=== PATIENT | male | born 2000 | race Caucasian/White ===

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

== ENCOUNTER → 2022-12-08 | Outpatient (CLI) | payer OTHER, SELFPAY ==
[2022-12-08 12:28] LABS: Erythrocyte Sedimentation Rate 1 mm/hr (0-20)
[2022-12-08 12:34] LABS: Absolute Lymphocyte Count 1.59 X10^3/uL (0.83-4.51); Basophil# 0.04 X10^3/uL; Basophil% 0.6 % (0-1); Eosinophil# 0.51 X10^3/uL; Eosinophils% 7.6 % (0-5); Hematocrit 50.5 % (40-54); Hemoglobin 17.2 g/dL (13.0-16.5); Lymphocyte # 1.59 X10^3/ul (0.83-4.51); Lymphocyte % 23.7 % (19-41); Mean Corp Hgb Conc 34.1 g/dL (32-36); Mean Corpuscular Hgb 30.6 pg (27.0-32.0); Mean Corpuscular Volume 89.9 fL (80-94); Mean Platelet Vol. 10.5 fl (6.2-12.0); Monocyte# 0.53 X10^3/uL; Monocyte% 7.9 % (0-10); NRBC Flagged by Analyzer 0 % (0-5); Neutrophil # 4.04 X10^3/uL (2.7-7.7); Neutrophil % 60.1 % (47-70); Platelet Count 228 K/mm3 (150-450); RBC Distribution Width SD 39.8 fl (35.1-43.9); Red Blood Count 5.62 M/mm3 (4.6-6.2); White Blood Count 6.7 K/mm3 (4.4-11.0)
[2022-12-08 13:07] LABS: AST(SGOT) 16 U/L (15-37); Alanine Aminotransfer ALT/SGPT 30 U/L (16-61); Albumin, Serum 3.9 g/dL (3.2-5.0); Alkaline Phosphatase 149 U/L (45-117); Anion Gap 4 (5-15); BUN 8 mg/dL (7-18); CRP < 2.90 mg/L (0.0-3.0); Calcium,Total 9.3 mg/dL (8.5-10.1); Chloride 107 mmol/L (98-107); EST Glomerular Filtration Rate 99 mL/min (>60); Est Glom Filt Rate - Afr Amer 120 mL/min (>60); Globulin 3.8 g/dL (2.2-4.2); Glucose 87 mg/dL (74-106); LDH 188 U/L (87-241); Protein, Total 7.7 g/dL (6.4-8.2); Sodium Level 140 mmol/L (136-145)
[2022-12-09 15:08] LABS: Endomysial Antibody IgA Negative (Negative); Immunoglobulin A 364 mg/dL (90-386); t-Transglutaminase IgA <2 U/mL (0-3)
[2022-12-11 19:07] LABS: Albumin 4.1 g/dL (2.9-4.4); Alpha-1-Globulins 0.2 g/dL (0.0-0.4); Alpha-2-Globulins 0.6 g/dL (0.4-1.0); Anti-Centromere B Ab <0.2 AI (0.0-0.9); Anti-Chromatin <0.2 AI (0.0-0.9); Anti-Jo <0.2 AI (0.0-0.9); Anti-Scleroderma-70 AB <0.2 AI (0.0-0.9); Anti-dsDNA Ab <1 IU/mL (0-9); Beef 0.12 kU/L (Class 0/I); Chocolate <0.10 kU/L (Class 0); Clam 0.11 kU/L (Class 0/I); Codfish <0.10 kU/L (Class 0); Corn 0.82 kU/L (Class II); Cytoplasmic Ab (C-ANCA) <1:20 titer (Neg:<1:20); Egg, White 0.23 kU/L (Class 0/I); Egg, Whole 0.31 kU/L (Class 0/I); Immunoglobulin A 381 mg/dL (90-386); Immunoglobulin E 546 IU/mL (6-495); Immunoglobulin G 1119 mg/dL (603-1613); Immunoglobulin M 50 mg/dL (20-172); Milk (Cow) 0.42 kU/L (Class I); PROEL- TOTAL PROTEIN 7.3 g/dL (6.0-8.5); Peanut 0.91 kU/L (Class II); Perinuclear Ab (P-ANCA) <1:20 titer (Neg:<1:20); Pork 0.21 kU/L (Class 0/I); RNP Ab 0.4 AI (0.0-0.9); SCALLOP 0.22 kU/L (Class 0/I); SJOGREN'S Anti-SS-A test < 0.2 AI (0.0-0.9); SJOGREN'S Anti-SS-B test < 0.2 AI (0.0-0.9); Shrimp 0.91 kU/L (Class II); Smith Ab <0.2 AI (0.0-0.9); Soybean 0.21 kU/L (Class 0/I); Walnut, (Food) 1.57 kU/L (Class III); Wheat 0.54 kU/L (Class I)
== END | disposition home or self-care (01) ==
LOC: LAB 11:22
PROVIDERS: PCP Family Medicine; Referring Provider Internal Medicine Gastroenterology; Visit Provider Internal Medicine Gastroenterology
DX: K20.0 Eosinophilic esophagitis (principal)
CPT/HCPCS: 36415; 80053; 82784; 82785; 83516; 83615; 84165; 85025; 85652; 86003; 86005; 86140; 86225; 86235; 86255; 86256; 86334

== ENCOUNTER 2023-03-25 05:40 | Day surgery (SDC) | payer OTHER, SELFPAY ==
[2023-03-25] VITALS (7 sets, daily range): BP systolic 114–135; BP diastolic 65–78; PULSE 54–76; RESP 18; TEMP 36.1–36.4; O2SAT 95–100; BMI 26.2
[2023-03-25] MEDS: Lactated Ringers 1,000 ML 15 ML IV (05:45)
--- NOTE | 2023-03-25 06:30 | EGD_PTH ---
PATIENT: LESLIE WELLS LOC: EN U#:[id number] AGE/SX: 22/M ROOM: RE03/25/[address]: Dr. Len Zaragoza DO : 2000 BED: DIS: 03/25/2023 SPEC #: [id number] RECD: 03/25/23 09:29 STATUS: CHICHI MAEGAN #: [id number] BETTY: 03/25/23 06:[address]: Len Zaragoza DEPT: SURGICAL PATHOLOGY RECD BY: Javed Gutierrez ENTERED: 03/25/23 12:22 SP TYPE: EGD BIOPSY ARYA DR: Dr. Ovi Lopez MD Tissues: A - Esophagus, NOS B - Duodenum, NOS Procedures: Surgery Specimen Level IV HEADER OPERATION: EGD ([facility]), biopsy, dilation PRE-OP DIAGNOSIS: Eosinophilic esophagitis TISSUE SUBMITTED: A - Random esophagus biopsy, B - Duodenum biopsy MICROSCOPIC DIAGNOSIS A. Esophagus, random biopsy: Eosinophilic esophagitis. See comment. B. Duodenum, biopsy: Focal gastric metaplasia. Mild chronic inflammation. AM:florencio 03/26/2023 COMMENT A. Eosinophils number greater than 20 per high power field. Clinical correlation is suggested. MICROSCOPIC DESCRIPTION Slides are reviewed. GROSS DESCRIPTION A - Received in fixative is one container labeled with the patient's name and designated random esophagus. The specimen consists of multiple irregular fragments of light barajas soft tissue that in aggregate measure 1.0 x 0.3 x 0.1 cm. The specimen is totally submitted in one cassette. B - Received in fixative is one container labeled with the patient's name and designated duodenum biopsy. The specimen consists of two irregular fragments of light barajas soft tissue that in aggregate measure 1.0 x 0.5 x 0.1 cm. The specimen is totally submitted in one cassette. / AM:florencio 03/25/2023 TC:3 CPT: 81218 x2
--- NOTE | 2023-03-25 06:33 | HP.PCM_ITS ---
History and Physical Date of Admission: 03/25/23 LESLIE WELLS, is a 22 M who presents to the office today for [facility] consulted 2017 for dysphagia persistent for one year. Noting concurrent diagnoses of eczema and asthma. ? EGD 02.25.17 noting Schatzki ring with increased eosinophils coun t. ? Start prednisolone taper then Pulmicort with Splenda slurry ? Upper GI 03.15.17 narrowing of esophagus. No reflux ? Continue/Start slurry and start PPI ? EGD 04.29.17 two strictures 15cm and 25cm from incisors. Pathology indicative of EOE. ? Esophagram 04.29.17 without acute/chronic finding. ? Leslie has had multiple EGDs with pathology and esophagrams showing esophageal strictures and ongoing EOE. Therapy has remained the same through treatment. ? EGD 08.03.19 mild esophageal narrowing at 15 [id number] with dilation performed; erythematous duodenal bulb. *BGI established 6.6.23 he is not currently maintained on medication; has attempted budesonide inhaler and slurry and anti-acid medication historically and does not recall good results but did not take them consistently. Currently he is having dysphagia with medication; but no acute episodes of choking. Notes a slowing of bolus passage with dryer/thicker foods. Most recent dilation approximately 2 years prior. Does report asthma which is activity induced; does not recall pulmonology workup. ROS Const Constitutional: No anorexia, fatigue, fever(s), weight change or sleep problems Eyes Eyes: No change in vision ENT ENT: No abnormal hearing, difficulty swallowing, mouth lesions, tongue swelling or throat swelling Resp Respiratory: No cough or shortness of breath Cardio Cardiology: No chest pain at rest, chest pain with exertion, shortness of breath or dyspnea on exertion Gastro GI: No difficulty swallowing Genitourinary Male: No difficulty urinating or burning urination Musc Musculoskeletal: No joint pain, joint swelling, muscle weakness or decreased muscle mass Skin Skin: No hair loss in leg, yellowing of the eye, itchy eyes, rash, skin ulcer or skin swelling Neuro Neurology: No abnormal hearing, abnormal movements, confusion, unsteady gait/balance or memory loss Psych Psychiatric: No anxiety, No confusion and No memory loss Endo Endocrine: No fatigue or weight change Aller/Imm Allergy/Immunologic: No itchy eyes, throat swelling or tongue swelling Andrew/Lymp Hematologic/Lymphatic: No easy bleeding, easy bruising or enlarged lymph nodes Exam Const General: cooperative and comfortable Nutritional Appearance: average body habitus and well nourished [facility] Head: normal to inspection Ears: hearing grossly normal bilaterally Nose: external nose normal Face and sinus: normal facial exam Mouth: oral mucosae normal Throat: posterior oropharynx normal Eyes General: appearance normal, both eyes and all related structures Neck Neck: normal visual inspection Chest Chest palpation & inspection: normal inspection of the chest and normal palpation of entire chest wall Resp Effort & Inspection: normal respiratory effort Auscultation: Bilateral: Clear to Auscultation Cardio Palpation: normal PMI Rate: regular rate Rhythm: regular rhythm GI Inspection: normal to inspection Auscultation: normal bowel sounds Percussion: normal to percussion Palpation: no hepatosplenomegaly Skin General: no rashes or lesions noted Neuro General: patient alert Extrem General: normal to inspection Psych Affect: normal affect Quality Reporting Tobacco Screening ([facility] 138) Smoking Status: Never smoker Assessment and Plan Assessment and Plan (1) Eosinophilic esophagitis: Status: Chronic Plan: Eosinophilic esophagitis diagnosed at the age of 12 with known stricturing disease. He says he has a proximal stricture that is 3 cm long and a distal stricture which is 5 cm long. His last upper endoscopy with dilation was approximately 2 years ago. At this time he is having somewhat solid food dysphagia and definitely pill induced dysphagia. He does not know if his is PPI responsive or PPI nonresponsive versus food allergy related or autoimmune. He has been on PPI therapy in the past intermittently and has been on budesonide oral. He took this the slushy. 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 We will do biochemical testing and also food allergy testing. He will undergo an upper endoscopy to evaluate his upper GI tract with biopsies and possible dilation. Orders: Orders Comprehensive Metabolic Profil Today K20.0 - Eosinophilic esophagitis CRP Today K20.0 - Eosinophilic esophagitis LDH Today K20.0 - Eosinophilic esophagitis CBC W/Diff, Automated Today K20.0 - Eosinophilic esophagitis Erythrocyte Sed Rate Today K20.0 - Eosinophilic esophagitis JOYCE Comprehensive Panel Today K20.0 - Eosinophilic esophagitis ANCA Today K20.0 - Eosinophilic esophagitis Celiac Disease Profile Today K20.0 - Eosinophilic esophagitis Immunoglobulins G/A/M/E Today K20.0 - Eosinophilic esophagitis DARCIE + Protein Elect, Serum Today K20.0 - Eosinophilic esophagitis Allergen, Rast Food Profile Today K20.0 - Eosinophilic esophagitis Allergen, Food Profile Today K20.0 - Eosinophilic esophagitis I have examined the patient and the H&P has been reviewed. There are no clinical changes since date of exam.
--- NOTE | 2023-03-25 07:00 | OP.EGD_ITS ---
Patient Name: Oleg Thomas Procedure Date: 03/25/2023 6:26 AM Date of : 2000 Age: 22 Procedure: Upper GI endoscopy Indications: Dysphagia Providers: Len Zaragoza DO Medicines: Monitored Anesthesia Care Patient Profile: This is a 22 year old male. Refer to note in patient chart for documentation of history and physical. Patient has symptoms of dysphagia with solids. Complications: No immediate complications. Procedure: Pre-Anesthesia Assessment: - Prior to the procedure, a History and Physical was performed, and patient medications and allergies were reviewed. The risks and benefits of the procedure and the sedation options and risks were discussed with the patient. All questions were answered and informed consent was obtained. Patient identification and proposed procedure were verified by the physician. Mental Status Examination: normal. Prophylactic Antibiotics: The patient does not require prophylactic antibiotics. Prior Anticoagulants: The patient has taken no anticoagulant or antiplatelet agents. After reviewing the risks and benefits, the patient was deemed in satisfactory condition to undergo the procedure. The anesthesia plan was to use monitored anesthesia care (MAC). Immediately prior to administration of medications, the patient was re-assessed for adequacy to receive sedatives. The heart rate, respiratory rate, oxygen saturations, blood pressure, adequacy of pulmonary ventilation, and response to care were monitored throughout the procedure. The physical status of the patient was re-assessed after the procedure. After obtaining informed consent, the endoscope was passed under direct vision. Throughout the procedure, the patient's blood pressure, pulse, and oxygen saturations were monitored continuously. The gastroscope was introduced through the mouth, and advanced to the second part of duodenum. The upper GI endoscopy was accomplished without difficulty. The patient tolerated the procedure well. Scope In: 6:40:02 AM Scope Out: 6:49:35 AM Total Procedure Duration Time 0 hours 9 minutes 33 seconds Findings: Mucosal changes including ringed esophagus, feline appearance, longitudinal furrows, small-caliber esophagus, white plaques, circumferential folds, congestion (edema), esophageal erosions and stenosis were found in the entire esophagus. Esophageal findings were graded using the Eosinophilic Esophagitis Endoscopic Reference Score (EoE-EREFS) as: Edema Grade 1 Present (decreased clarity or absence of vascular markings), Rings Grade 3 Severe (distinct rings that do not permit passage of diagnostic 8-10 mm endoscope), Exudates Grade 2 Severe (scattered white lesions involving 10 percent or greater of the esophageal surface area), Furrows Grade 2 Severe (vertical lines with clear depth) and Stricture present. Biopsies were obtained from the proximal and distal esophagus with cold forceps for histology of suspected eosinophilic esophagitis. A guidewire was placed and the scope was withdrawn. Dilation was performed with a Savary dilator with no resistance at 42 Fr. The dilation site was examined and showed moderate mucosal disruption. The entire examined stomach was normal. Diffuse moderately erythematous mucosa without active bleeding and with no stigmata of bleeding was found in the duodenal bulb. Biopsies were taken with a cold forceps for histology. Verification of patient identification for the specimen was done. Estimated blood loss was minimal. Impression: - Esophageal mucosal changes secondary to eosinophilic esophagitis. Dilated. - Normal stomach. - Erythematous duodenopathy. Biopsied. - Biopsies were taken with a cold forceps for evaluation of eosinophilic esophagitis. Recommendation: - Discharge patient to home. - Full liquid diet. - Continue present medications. - Await pathology results. Procedure Code(s): --- Professional --- 15727, Esophagogastroduodenoscopy, flexible, transoral; with insertion of guide wire followed by passage of dilator(s) through esophagus over guide wire 97404, 59,51, Esophagogastroduodenoscopy, flexible, transoral; with biopsy, single or multiple CPT copyright 2021 [employer]. All rights reserved. The codes documented in this report are preliminary and upon spring setter review may be revised to meet current compliance requirements. Len Zaragoza DO 03/25/2023 6:59:40 AM This report has been signed electronically. Number of Addenda: 0 Note Initiated On: 03/25/2023 6:26 AM
--- NOTE | 2023-03-25 07:00 | OP.CCLET_ITS ---
03/25/2023 Rohith Lopez [address] [place] [address] Re : Upper GI endoscopy procedure for [facility] Dear Dr. Lopez This procedure was performed on March. My impressions and recommendations are as follows: Impressions : - Esophageal mucosal changes secondary to eosinophilic esophagitis. Dilated. - Normal stomach. - Erythematous duodenopathy. Biopsied. - Biopsies were taken with a cold forceps for evaluation of eosinophilic esophagitis. Recommendations : - Discharge patient to home. - Full liquid diet. - Continue present medications. - Await pathology results. My findings are described in the full procedure note, which is enclosed. If I can be of further assistance, please feel free to contact me at . Sincerely, Len Zaragoza, 03/25/2023 6:59:40 AM This report has been signed electronically.
== END 2023-03-25 07:30 | disposition home or self-care (01) ==
LOC: EN 05:43 → AC 05:43
PROVIDERS: PCP Family Medicine; Referring Provider Family Medicine; Visit Provider Internal Medicine Gastroenterology
PROC: 0DJ08ZZ Inspection of Upper Intestinal Tract, Via Natural or Artificial Opening Endoscopic (ICD-10-PCS; CPT 43235; principal; 2023-03-25 06:25)
DX: K20.0 Eosinophilic esophagitis (principal); R13.10 Dysphagia, unspecified
CPT/HCPCS: 43248; 43239; 88305; J7120; C1769; J2405

== ENCOUNTER 2025-06-08 06:48 | Day surgery (SDC) | payer OTHER, SELFPAY ==
[2025-06-08] VITALS (7 sets, daily range): BP systolic 117–141; BP diastolic 69–81; PULSE 74–93; RESP 14–16; TEMP 36.1–36.8; O2SAT 94–99; BMI 28.0
--- OUTSIDE RECORDS SUMMARY | 2025-06-08 06:51 | XMS RPT_ITS | CCD ---
Author Organization [facility] Care Team Providers Care Gate Agent Name Role Phone JOSE M TALBOT e Unavailable ANITHAEEVARAM JOSE M LIND Attending Unavailable CLOVERAM JOSE M LIND Referring Unavailable ANITHAEEVARAM JOSE M LIND Attending Unavailable Unavailable Primary Care Provider Jarrod Maldonado MD, Chioma Baron Primary Care Provider Dr. Chioma Maldonado Primary Care Provider Dr. Chioma Maldonado Referring Provider [phone] FriendDr[address] Harrington Attending Provider [phone] Dr. Rohith Lopez Primary Care Provider Dr. Rohith Lopez Referring Provider FriendDr. Harrington Other Provider [phone] KASSANDRA MONSON, DR BIGGS Attending Unavailab CHIOMA Nguyen Primary Care Unavailable CHIOMA MALDONADO Primary Care Unavailable CHIOMA MALDONADO Primary Care Unavailable JOSE FRANCISCO FREY Referring Unavailable CHIOMA MALDONADO Primary Care Unavailable Jose MONSON, Chioma Baron Primary Care Provider [phone] TAMIR MONSON, DR MCCRARY Primary Care Physician DR DEMETRA LOPEZ MD Primary Care Tabitha PHELAN PA-C, KYLE Rao Attending Unavailab Len Fagan Attending Unavailable Demetra Lopez Primary Care Unavailable Demetra Lopez Referring Unavailable Len Zaragoza Attending Unavailable Demetra Lopez Primary Care Unavailable Demetra Lopez Referring Unavailable Allergies Allergy Classification Reported Allergen(s) Allergy Type Date of Onset Reaction(s) Facility (13 sources) cefdinir; Translations: [CEFDINIR] Drug Allergy 1 Hives [facility] Other Weed Repository (3 sources) OTHER; Translations: [OTHER] Propensity to adverse reactions (disorder) 1 AOF [facility] Repository (4 sources) OTHER OMEGA-3S; Translations: [OTHER OMEGA-3S] Propensity to adverse reactions to drug (disorder) 2 Anaphylaxis [facility] Repository (4 sources) NUT - UNSPECIFIED; Translations: [NUT - UNSPECIFIED] Propensity to adverse reactions to drug (disorder) 8 Anaphylaxis [facility] Repository (1 source) Environmental [Other] Propensity to adverse reactions 1 Other: See Comments [facility] Work Phone: (1 source) tree nuts [Other] Propensity to adverse reactions 1 Anaphylaxis [facility] (2 sources) tree nut, unspecified; Translations: [tree nut] Allergy to substance 3 Anaphylaxis [facility] Medications Current Medications Medication Drug Class(es) Dates Sig (Normalized) Sig (Original) [id number] 200 actuat albuterol 0.09 mg/actuat metered dose inhaler (3 sources) beta2-Adrenergic Agonist Start: 03-23-2023 Albuterol Sulfate Active 2 PUFF INHALATION NEEDED March 23, 2023 12:00am Start: 01-22-2017 take 2 puff(s) by in halation every four hours as needed albuterol HFA (PROVENTIL HFA, VENTOLIN HFA) 90 mcg/actuation inhaler Indications: Asthma, intermittent, uncomplicated Inhale 2 Puffs as instructed every 4 hours as needed. Use with spacer. 3 Inhaler 01/22/2017 Active Comment on above: Inhale 2 Puffs as in structed every 4 hours as needed. Use with spacer. amoxicillin 50 mg/ml oral suspension (1 source) Penicillin-class Antibacterial Start: 04-26-20 End: 05-06-20 take 1 dose by mouth three times daily amoxicillin 250 mg/5 mL oral liquid Dose : 500 mg = 10 mL, PO, TID, X 10 day(s), # 300 mL, 0 Refill(s), 05/06/23 1:25:00 AM EDT Start Date: 04/26/23 Stop Date: 05/06/23 Status: Ordered [id number] 0.3 ml EPINEPHrine 1 mg/ml auto-injector (4 sources) alpha-Adrenergic Agonist, beta-Adrenergic Agonist, Catecholamine Start: 02-23-20 18 EPINEPHrine (EPIPEN 2-SHERLY) 0.3 mg/0.3 mL auto-injector Indications: Tree nut allergy Inject as directed to the anterior thigh as directed by symptoms in the allergy action plan. If used the patient must seek emergency medical care. May repeat a second dose after 5 minutes for failure to respond or worsening symptomatology while awaiting EMS. Dispensed to twin packs with trainers. Dispense generic Epipens. 4 Each 3 month supply 02/23/2018 Active Comment on above: Inject to the anteri or thigh as directed by signs and symptoms in the allergy action plan. If used the patient needs to seek emergency medical care. May repeat a second dose after 5 minutes for failure respond or worsening symptoms. Dispense 2 twin packs with trainers Inject as directed t o the anterior thigh as directed by symptoms in the allergy action plan. If used the patient must seek emergency medical care. May repeat a second dose after 5 minutes for failure to respond or worsening symptomatology while awaiting EMS. Dispensed to twin packs with trainers. Dispense generic Epipens. famotidine 20 mg oral tablet (1 source) Histamine-2 Receptor Antagonist Start: 05-30-20 take 1 tablet by mouth every twenty-four hours as needed famotidine (PEPCID) 20 mg tablet Take 1 tablet by mouth at bedtime as needed. 14 tablet 05/30/2022 Active fluticasone propionate 0.05 mg/actuat metered dose nasal spray (7 sources) Corticosteroid Start: 03-23-20 23 Fluticasone Propionate Active 2 SPRAY INTRANASAL DAILY March 23, 2023 12:00am Start: 03-28-2018 End: 01-17-2023 take 2 puff(s) by inhalation twice daily fluticasone (FLOVENT HFA) 220 mcg/actuation inhaler 2 Puffs twice daily. 3 Inhaler 5 03/28/2018 01/17/2023 Discontinued (Course of therapy completed) Start: 05-10-2017 End: 09-24-2022 take 1 puff(s) by inhalation twice daily Fluticasone Propionate (Flovent Hfa) 220 MCG HFA aerosol inhaler Discontinued 2 PUFF INHALATION TWICE A DAY May 10, 2017 1:00am September 24, 2022 9:37am Start: 01-22-2017 End: 01-17-2023 take 2 spray(s) nasal route once daily fluticasone (FLONASE) 50 mcg/actuation nasal spray Use 2 Sprays in each nostril once daily. 3 Bottle 3 01/22/2017 01/17/2023 Discontinued Start: 08-19-2016 End: 09-24-2022 Fluticasone Propionate Disco ntinued 2 SPRAY NASAL DAILY August 19, 2016 1:00am September 24, 2022 9:37am Comment on above: Use 2 Sprays in each nostril once daily. 2 Puffs twice daily. levocetirizine dihydrochloride 5 mg oral tablet (4 sources) Histamine-1 Receptor Antagonist Start: 03-23-2023 Levocetirizine Active 5 MG PO NEEDED March 23, 2023 12:00am Start: 08-19-2016 End: 01-17-2023 take 1 tablet by mouth once daily as needed Levocetirizine (XYZAL) 5 mg tablet Take 1 tablet by mouth once daily as needed (for itching, sneezing or runny nose. ). 90 tablet 3 01/22/2017 01/17/2023 Discontinued Comment on above: Take 1 tablet by [facility] once daily as needed (for itching, sneezing or runny nose. ). mupirocin 0.02 mg/mg topical ointment (1 source) RNA Synthetase Inhibitor Antibacterial Start: End: mupirocin (BACTROBAN) 2 % ointment Apply 1 application to affected area three times daily. 30 g 0 12/09/2018 09/23/2021 Discontinued Comment on above: Apply 1 application to affected area three times daily. omeprazole 40 mg delayed release oral capsule (2 sources) Proton Pump Inhibitor Start: End: 023 take 1 capsule by mouth once daily omeprazole (PRILOSEC) 40 mg capsule Take 1 capsule by mouth once daily. 90 capsule 3 09/23/2021 09/23/2022 Active Comment on above: Take 1 capsule by [facility] once daily. Open capsule and sprinkle granules on small amount of applesauce or pudding and swallow Take 1 capsule by [facility] once daily. rizatriptan 5 mg disintegrating oral tablet (2 sources) Serotonin-1b and Serotonin-1d Receptor Agonist Start: 017 rizatriptan (MAXALT CARPET TILE LAYER) 5 mg disintegrating tablet For a severe migraine take 1 tablet by mouth. If no improvement in 2 hours may take a second tablet. May take 2 doses of Maxalt in one day, 4 doses and 2 consecutive days, no more than 8 doses per month. 20 tablet 01/22/2017 Active Comment on above: For a severe migrain e take 1 tablet by mouth. If no improvement in 2 hours may take a second tablet. May take 2 doses of Maxalt in one day, 4 doses and 2 consecutive days, no more than 8 doses per month. sodium chloride flush 0.9 % injection 3 mL (1 source) Start: 021 sodium chloride flush 0.9 % injection 3 mL Completed/Discontinued Medications Medication Drug Class(es) Dates Sig (Normalized) Sig (Original) ibuprofen 20 mg/ml oral suspension (2 sources) Nonsteroidal Anti-inflammatory Drug Start: 08-19-2016 End: 09-24-2022 take 600 mg by mouth four times daily Ibuprofen (Children's Ibuprofen) 100 MG/5 ML suspension Discontinued 600 MG PO 4 TIMES DAILY April 03, 2018 7:41pm September 24, 2022 9:37am iopamidol (ISOVUE-370) 76 % injection 75 mL (1 source) Start: 09-22-2020 End: 09-22-2020 iopamidol (ISOVUE-370) 76 % injection 75 mL ondansetron 4 mg disintegrating oral tablet (1 source) Serotonin-3 Receptor Antagonist Start: 08-20-2016 ondansetron orally disintegrating (ZOFRAN ODT) 4 mg disintegrating tablet Indications: Migraine without status migrainosus, not intractable, unspecified migraine type One tablet po at the onset of a migraine headache. 20 tablet 0 08/20/2016 Active Comment on above: One tablet po at the onset of a migraine headache. 1 ml promethazine hydrochloride 25 mg/ml injection (1 source) Phenothiazine Start: 09-22-2020 End: 09-22-2020 promethazine (PHENERGAN) injection 12.5 mg 50 ml sodium chloride 9 mg/ml injection (1 source) Start: 09-22-2020 End: 09-22-2020 0.9 % sodium chloride bolus Problems Active Problems Problem Classification Problem Date Documented Da te Episodic/Chronic Allergic reactions (2 sources) Atopic dermatitis; Translations: [Other atopic dermatitis] Onset: 11-11-2011 11-11-2011 Chronic Asthma (2 sources) Intermittent asthma; Translations: [Mild intermittent asthma, uncomplicated] Onset: 03-06-2011 03-06-2011 Chronic E Codes: Natural/environment (1 source) Bitten by other mammals, initial encounter; Translations: [Bite of mammal (finding)] Onset: 01-09-2022 Episodic Esophageal disorders (14 sources) Eosinophilic esophagitis; Translations: [Esophageal obstruction] Onset: 03-01-2017 Chronic Headache; including migraine (4 sources) Migraine; Translations: [Migraine, unspecified, not intractable, without status migrainosus] Onset: 11-11-2011 11-11-2011 Chronic Headache; including migraine (2 sources) Tension-type headache; Translations: [Tension-type headache, not intractable, unspecified chronicity pattern] Onset: 09-22-2020 09-22-2020 Episodic Immunizations and screening for infectious disease (1 source) Vaccination given; Translations: [Encounter for immunization] Onset: 01-09-2022 Episodic Other connective tissue disease (1 source) Pain in right hand; Translations: [Pain in right hand] 11-23-2022 Episodic Other gastrointestinal disorders (1 source) Heartburn; Translations: [Heartburn] Episodic Other upper respiratory disease (2 sources) Allergic rhinitis; Translations: [Allergic rhinitis, unspecified] Onset: 11-11-2011 11-11-2011 Chronic Other upper respiratory infections (1 source) Acute pharyngitis; Translations: [Acute pharyngitis, unspecified] Onset: 04-26-2023 Episodic Sprains and strains (5 sources) Strain of neck muscle; Translations: [Strain of muscle, fascia and tendon at neck level, initial encounter] Onset: 02-28-2025 08-20-2016 Episodic Past or Other Problems Problem Classification Problem Date Documented Da te Episodic/Chronic Abdominal pain (3 sources) Unspecified abdominal pain; Translations: [Abdominal pain] Onset: 02-08-2017 02-08-2017 Episodic Allergic reactions (2 sources) 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; Translations: [Allergy to other foods] Onset: 11-11-2011 11-11-2011 Episodic Other connective tissue disease (1 source) Pain in right hand; Translations: [Hand pain, right] Onset: 11-23-2022 Episodic Other fractures (2 sources) Closed fracture of seventh cervical vertebra; Translations: [Unspecified displaced fracture of seventh cervical vertebra, subsequent encounter for fracture with routine healing] Onset: 01-19-2017 07-31-2017 Episodic Other gastrointestinal disorders (2 sources) Dysphagia, unspecified; Translations: [Esophageal dysphagia] Onset: 02-08-2017 Episodic Other gastrointestinal disorders (3 sources) Esophageal dysphagia; Translations: [Other dysphagia] Onset: 02-08-2017 Episodic Other gastrointestinal disorders (2 sources) Dysphagia; Translations: [Dysphagia, unspecified] Onset: 03-28-2018 03-28-2018 Episodic Residual codes; unclassified (2 sources) Family history of aneurysm of artery; Translations: [Family history of ischemic heart disease and other diseases of the circulatory system] Onset: 02-08-2017 02-08-2017 Episodic Results Test Name Value Interpretation Reference Range Facility Gastroenterology Visit [facility] 04-27-2025 Gastroenterology Visit Report [facility] [address] [place] [address] OFFICE VISIT Date of Service: 04/27/25 MR#: [id number] Acct: [id number] Name: LESLIE THOMAS Rep #: [id number] : 2000 Provider: Len Zaragoza DO Age/Sex: 25/M Location: [facility] [place] Status: Signed Intake Vital Signs 03/25/23 06:07 Height 6 ft Intake Visit Reasons: Dysphagia Allergies tree nut Allergy (Severe, Verified 04/23/23 08:09) Anaphylaxis cefdinir (From Omnicef) Allergy (Verified 04/23/23 08:09) Hives Medications ???Medication ???Instructions ???Recorded ???Confirmed ???Type albuterol sulfate 90 mcg/actuation 2 puff inhalation PRN ASTHMA 04/27/25 History aerosol inhaler fluticasone propionate 50 2 spray intranasal DAILY 03/23/23 04/27/25 History mcg/actuation nasal spray,suspension levocetirizine 5 mg tablet 5 mg PO PRN PRN allergy symptoms 0 03/23/23 04/27/25 History dupilumab 300 mg/2 mL subcutaneous 300 mg (2 mL) subcut Q2W #4 mL 1 04/27/25 Rx pen injector (Dupixent) lansoprazole 30 mg delayed 30 mg PO QDAY #30 tabs 04/27/25 Rx release,disintegrating tablet Nurse's Note: Pt was scheduled for EGD on 05.09.25 at the end of their appt today. Reviewed prep instructions and which medications to hold prior to procedure with pt in office. A paper copy of EGD prep instructions were given to pt. Pt denies any questions or concerns at this time. [facility] Medical History Alcohol use Asthma Broken neck Chewing tobacco nicotine dependence Difficulty swallowing Dysphagia Gastric reflux History of steroid therapy Injury of head and neck Migraine Surgical History History of esophagogastroduodenoscop y (EGD) Social History Smoking Status: Current every day smoker tobacco type: smokeless tobacco alcohol intake: never HPI HPI Details: LELSIE THOMAS, is a 25 M who presents to the office today for follow up. [facility] consulted 2017 for dysphagia persistent for one year. Noting concurrent diagnoses of eczema and asthma. ? EGD 02.25.17 noting Schatzki ring with increased eosinophils count. ? Start prednisolone taper then Pulmicort with Splenda slurry ? Upper GI 03.15.17 narrowing of esophagus. No reflux ? Continue/Start slurry and start PPI ? EGD 04.29.17 two strictures 15cm and 25cm from incisors. Pathology indicative of EOE. ? Esophagram 04.29.17 without acute/chronic finding. ? Leslie has had multiple EGDs with pathology and esophagrams showing esophageal strictures and ongoing EOE. Therapy has remained the same through treatment. ? EGD 08.03.19 mild esophageal narrowing at 15 [id number] with dilation performed; erythematous duodenal bulb. *BGI established 12.08.22 he is not currently maintained on medication; has attempted budesonide inhaler and slurry and anti-acid medication historically and does not recall good results but did not take them consistently. Currently he is having dysphagia with medication; but no acute episodes of choking. Notes a slowing of bolus passage with dryer/thicker foods. Most recent dilation approximately 2 years prior. Does report asthma which is activity induced; does not recall pulmonology workup. EGD 03-25-23 noting Esophageal mucosal changes secondary to eosinophilic esophagitis. Dilated. Normal stomach. Erythematous duodenopathy. 04-23-23, He reports his dysphagia has improved since dilation. He reports meat and rice sticking in his esophagus, but clears easily with water. He has not started the Dupixent yet as his insurance just approved it last week. OV 04.27.25 pt reports that for the past 6 months he has been having more difficultly swallowing, reports that EGD with dilation was helpful in the past. Reports he was never able to start on the Dupixent due to insurance and does not remember is Lansoprazole was helpful. Pt also notes alternating bowel movements, reports he has always had "trouble with his bowels" but states it has gotten worse this year. Pt reports gas and bloating after eating, states that gluten and dairy tend to be triggers. ROS Const Constitutional: Positive for fatigue; No fever(s) or weight change ENT ENT: Positive for difficulty swallowing Gastro GI: Positive for abdominal pain, bloating, change in bowel habits, constipation, diarrhea, heartburn, difficulty swallowing and (more content not included)... [facility] ----- LESLIE THOMAS ([id number]) 1018/00 M Date Time Provider Department 07/13/23 7:30 PM SHELIA FOY [facility] During your visit today, we recorded the following information about you: Temperature Pulse Respiration Blood pressure 97.7 degrees 74/minute 16/minute 112/78 Weight 87.3 kg Shelia Foy APRN.JOB COACH/JOB DEVELOPER 07/13/2023 7:37 PM Signed This note was created using NoteWriter. Subjective Leslie Guerra William is a 23 year old male. 23 year old male with PMH migraine, asthma, eosinophilic esophagitis presents for illness. Acute onset over the past week +sinus pressure + congestion +cough Over the past couple days, right ear pain and pressure Denies fever or chills Denies N/V/D The history is provided by the patient. No odd shoe examiner was used. Ear Pain This is a new problem. The current episode started in the past 7 days. The problem occurs constantly. The problem has been gradually worsening. Associated symptoms include congestion, coughing and headaches. Pertinent negatives include no abdominal pain, anorexia, arthralgias, change in bowel habit, chest pain, chills, diaphoresis, fatigue, fever, joint swelling, myalgias, nausea, neck pain, numbness, rash, sore throat, swollen glands, urinary symptoms, vertigo, visual change, vomiting or weakness. Nothing aggravates the symptoms. He has tried nothing for the symptoms. The treatment provided no relief. PAST MEDICAL HISTORY Diagnosis Date Asthma Bone tumor right leg Eczema Eosinophilic esophagitis Esophageal stricture Status post balloon dilatation of esophageal stricture PAST SURGICAL HISTORY Procedure Laterality Date CIRCUMCISION W/CLAMP/OTH DEV W/BLOCK ALLERGIES Other Clint-3s, Nut - Unspecified, and Omnicef [Cefdinir] MEDICATIONS levocetirizine (XYZAL) 5 mg tablet Take 1 tablet by mouth once daily as needed (for itching, sneezing or runny nose. ). fluticasone (FLONASE) 50 mcg/actuation nasal spray Use 2 Sprays in each nostril once daily. famotidine (PEPCID) 20 mg tablet Take 1 tablet by mouth at bedtime as needed. EPINEPHrine (EPIPEN 2-SHERLY) 0.3 mg/0.3 mL auto-injector Inject as directed to the anterior thigh as directed by symptoms in the allergy action plan. If used the patient must seek emergency medical care. May repeat a second dose after 5 minutes for failure to respond or worsening symptomatology while awaiting EMS. Dispensed to twin packs with trainers. Dispense generic Epipens. EPINEPHrine (AUVI-Q) 0.3 mg/0.3 mL auto-injector Inject to the anterior thigh as directed by signs and symptoms in the allergy action plan. If used the patient needs to seek emergency medical care. May repeat a second dose after 5 minutes for failure respond or worsening symptoms. Dispense 2 twin packs with trainers albuterol HFA (PROVENTIL HFA, VENTOLIN HFA) 90 mcg/actuation inhaler Inhale 2 Puffs as instructed every 4 hours as needed. Use with spacer. rizatriptan (MAXALT CARPET TILE LAYER) 5 mg disintegrating tablet For a severe migraine take 1 tablet by mouth. If no improvement in 2 hours may take a second tablet. May take 2 doses of Maxalt in one day, 4 doses and 2 consecutive days, no more than 8 doses per month. amoxicillin-clavulanate potassium (AUGMENTIN) 875-125 mg per tablet Take 1 tablet by mouth two times a day for 7 days. FAMILY HISTORY Problem Relation Age of Onset Asthma Mother other (hypothyroid) Mother None Father None Maternal Grandmother None Maternal Grandfather other (aneusym) Paternal Grandmother 40 Cancer Paternal Grandfather Colon Colon Cancer Paternal Grandfather Social History Tobacco Use Smoking status: Never Smokeless tobacco: Never Substance Use Topics Alcohol use: No Drug use: No Review of Systems Constitutional: Negative for chills, diaphoresis, fatigue and fever. HENT: Positive for congestion, ear pain, sinus pressure and sinus pain. Negative for sore throat. Eyes: Negative for photophobia, pain, discharge, redness, itching and visual disturbance. Respiratory: Positive for cough. Negative for apnea and chest tightness. Cardiovascular: Negative for chest pain. Gastrointestinal: Negative for abdominal pain, anorexia, change in bowel habit, nausea and vomiting. Musculoskeletal: Negative for arthralgias, joint swelling, myalgias and neck pain. Skin: Negative for color change, pallor and rash. Allergic/Immunologic: Negative for environmental allergies, food allergies and immunocompromised state. Neurological: Positive for headaches. Negative for dizziness, vertigo, facial asymmetry, weakness and numbness. Hematological: Negative for adenopathy. Does not bruise/bleed easily. Psychiatric/Behavioral: Negative for agitation and behavioral problems. Objective BP 112/78 Pulse 74 Temp 36.5 ?C (97.7 ?F) (Tympanic) Resp 16 Wt 87.3 kg (192 lb 6.4 oz) SpO2 96 (more content not included)... Normal [facility] LABORATORYOrdered By: Cathi Goel on 04-26-2023 S. pyogenes DNA SORAYA+probe Ql (Throat) Negative (04/26/23 1:34 AM) Invalid Interpretation Code Negative AO Auto Urine SS S. pyogenes DNA SORAYA+probe Ql (Throat) Negative for Streptococcus pyogenes by PCR. Negative test results do not rule out other possible infections besides those caused by Group A Streptococcus. False Negatives may be obtained in the presence of NYQUIL (0.5% V/V)The Owen Group A Strep Assay is a real-time polymerase chain reaction (PCR) based qualitative in vitro diagnostic test for the direct detection of Streptococcus pyogenes (Group A Beta hemolytic Streptococcus) in throat swab specimens from patients with signs and symptoms of pharyngitis.The Owen Group A Strep Assay can be used as an aid in the diagnosis of Group A Streptococcal pharyngitis. The assay is not intended to monitor treatment for Group A Streptococcus infections. Invalid Interpretation Code AO Auto Urine SS STREPAon 04-26-2023 Group A Strep PCR Negative Normal Negative [facility] ([place]) Comment on above: Performed By: #### S GENET #### [address] [address] Group A Strep PCR Int Normal [facility] ([place]) Comment on above: Result Comment: Nega tive for Streptococcus pyogenes by PCR. Negative test results do not rule out other possible infections besides those caused by Group A Streptococcus. False Negatives may be obtained in the presence of NYQUIL (0.5% V/V) The Owen Group A Strep Assay is a real-time polymerase chain reaction (PCR) based qualitative in vitro diagnostic test for the direct detection of Streptococcus pyogenes (Group A Beta hemolytic Streptococcus) in throat swab specimens from patients with signs and symptoms of pharyngitis. The Owen Group A Strep Assay can be used as an aid in the diagnosis of Group A Streptococcal pharyngitis. The assay is not intended to monitor treatment for Group A Streptococcus infections. See Interp Performed By: #### S GENET #### [address] [address] CNOVon 01-17-2023 CNOV Office Visit (WALKWA ) ----- LESLIE THOMAS ([id number]) 10/00 M Date Time Provider Department 01/17/23 2:50 PM MARIE HUFF During your visit today, we recorded the following information about you: Temperature Pulse Respiration Blood pressure 97 degrees 92/minute 16/minute 131/83 Weight Height 86.6 kg 1.829 m Marie Huff PA-C 01/17/2023 3:22 PM Signed Subjective Leslie Guerra William is a 22 year old male with a past medical history of migraine, asthma, and eosinophilic esophagitis who presents [facility] today for evaluation of cough and nasal congestion, and shortness of breath for the past 3 weeks. He states that he does have a history of asthma but usually only needs his inhaler a few times a year. He states that he has been using it much more often over the past couple weeks. He endorses wheezing. He has not had any fevers. Review of Systems Constitutional: Negative for chills, diaphoresis and fever. HENT: Positive for congestion. Negative for ear pain and sore throat. Eyes: Negative for discharge and redness. Respiratory: Positive for cough, shortness of breath and wheezing. Skin: Negative for rash and wound. Neurological: Negative for weakness and headaches. All other systems reviewed and are negative. Objective BP 131/83 Pulse 92 Temp 36.1 ?C (97 ?F) Resp 16 Ht 182.9 cm (6') Wt 86.6 kg (191 lb) SpO2 96% BMI 25.90 kg/m? Physical Exam Vitals reviewed. Constitutional: General: He is not in acute distress. Appearance: Normal appearance. He is normal weight. He is not ill-appearing or toxic-appearing. Comments: The patient appears to be non-toxic, in no acute distress, and resting comfortably on the table. HENT: Head: Normocephalic and atraumatic. Eyes: Extraocular Movements: Extraocular movements intact. Cardiovascular: Rate and Rhythm: Normal rate and regular rhythm. Heart sounds: Normal heart sounds. No murmur heard. No friction rub. No gallop. Pulmonary: Effort: Pulmonary effort is normal. Breath sounds: Wheezing present. Musculoskeletal: General: Normal range of motion. Cervical back: Normal range of motion. Skin: General: Skin is warm and dry. Findings: No erythema or rash. Neurological: General: No focal deficit present. Mental Status: He is alert and oriented to person, place, and time. Mental status is at baseline. Psychiatric: Mood and Affect: Mood normal. Behavior: Behavior normal. Thought Content: Thought content normal. Assessment and Plan Mild diffuse wheezing heard upon auscultation of the lungs. Suspect patient's symptoms are due to acute upper respiratory infection and asthma exacerbation. As patient's symptoms have been persistent for several weeks, I feel he would benefit from a course of antibiotics but patient counseled regarding suspected diagnosis and given prescriptions for Augmentin and prednisone. Patient also given refills of his Flonase and Xyzal. Advised to follow-up with his primary care provider as needed for any new or worsening symptoms. ASSESSMENT/PLAN: 1. Persistent cough - ICD9: 786.2, ICD10: R05.3 (primary diagnosis) - AMOXICILLIN 250 MG-POTASSIUM CLAVULANATE 62.5 MG/5 ML ORAL SUSPENSION - PREDNISOLONE SODIUM PHOSPHATE 15 MG/5 ML (3 MG/ML) ORAL SOLUTION 2. Nasal congestion - ICD9: 478.19, ICD10: R09.81 - LEVOCETIRIZINE 5 MG TABLET - FLUTICASONE PROPIONATE 50 MCG/ACTUATION NASAL SPRAY,SUSPENSION 3. SOB (shortness of breath) - ICD9: 786.05, ICD10: R06.02 - PREDNISOLONE SODIUM PHOSPHATE 15 MG/5 ML (3 MG/ML) ORAL SOLUTION Medical Decision Making: Problems: Low: Acute, uncomplicated illness or injury Risk: Minimal: Minimal risk from testing/treatment Moderate: Drug management Medical Decision Making Level: 3 - Low I spent a total of 20 minutes on the date of the service which included preparing to see the patient, [id number] patient care, completing clinical documentation, performing a medically appropriate examination, counseling and educating the patient/family/caregiver, and ordering medications, tests, or procedures. Allergies As of Date: 01/17/2023 Noted Allergy Reaction OTHER OMEGA-3S 02/09/2012 10 - Anaphylaxis Comments: Tree nuts Environmental [Other] 11/04/2010 14 - Other: See Comments Comments: Cats Cockroach dustmites molds (September through May) trees (September, October and November) grasses (November and December) weeds (February, March and April) NUT - UNSPECIFIED 03/22/2018 10 - Anaphylaxis OMNICEF (CEFDINIR) 11/04/2010 4 - Hives tree nuts [Other] 11/04/2010 10 - Anaphylaxis Comments: Throat swells up Date Reviewed: 01/17/2023 Reviewed by: Marie Huff PA-C - Fully Assessed Reason for Visit: Viral Syndrome [119] Cmt: A lot of congestion, having breathing issues. Started about 3 weeks ago Primary Visit Diagnosis:Persistent cough [R05.3] Othe (more content not included)... Normal [facility] Absolute lymphocyte countOrd ered By: Len Zaragoza on 12-08-2022 Lymphocytes Auto (Unsp spec) [#/Vol] 1.59 10*3/uL 0.83-4.51 [facility] Albumin Elph [Mass/Vol]Order ed By: Len Zaragoza on 12-08-2022 Albumin [Mass/Vol] 4.1 g/dL 2.9-4.4 [facility] Atypical perinuclear antineu trophil cytoplasmic antibodies measurementOrdered By: Len Zaragoza on 12-08-2022 Neutrophil cytoplasmic Ab.perinuclear.atypical IF (S) [Titer] <1:20 titer Neg:<1:20 [facility] Comment on above: The atypical pANCA p attern has been observed in asignificant percentage of patients with ulcerative colitis,primary sclerosing cholangitis and autoimmune hepatitis.Performed at: [facility] HSystem[address] [id number] Director: Efrain Campbell PhD, Phone: [phone] at: [facility] Lab[address] [id number] Director: Alonzo Jansen MD, Phone: [phone] Basophil percentageOrdered B y: Len Zaragoza on 12-08-2022 Basophil percentage < 0.2 AI 0.0-0.9 [facility] Basophils/100 WBC (Bld) 0.6 % 0-1 [facility] Bilirubin [Mass/Vol] 0.40 mg/dL 0.20-1.00 [facility] Comment on above: For patients on eltr ombopag therapy, use of Dimension [place] TBIL is not recommended. Chloride [Moles/Vol] 107 mmol/L 98-107 [facility] Eosinophils/100 WBC (Bld) 7.6 % 0-5 [facility] Glucose [Mass/Vol] 87 mg/dL 74-106 [facility] LDH [Catalytic activity/Vol] 188 U/L 87-241 [facility] Neutrophils (Bld) [#/Vol] 4.0 10*3/uL 2.0-7.7 [facility] Neutrophils/100 WBC (Bld) 60.1 % 47-70 [facility] Potassium [Moles/Vol] 4.0 mmol/L 3.5-5.[address] [facility] Protein [Mass/Vol] 7.7 g/dL 6.4-8.2 [facility] Sodium [Moles/Vol] 140 mmol/L 136-145 [facility] WBC (Bld) [#/Vol] 6.7 10*3/uL 4.4-11.0 [facility] Blood erythrocytes count (nu mber/volume)Ordered By: Len Zaragoza on 12-08-2022 RBC (Bld) [#/Vol] 5.62 10*6/uL 4.6-6.2 [facility] Blood hemoglobin measurement (mass/volume)Ordered By: Len Zaragoza on 12-08-2022 Hemoglobin (Bld) [Mass/Vol] 17.2 g/dL 13.0-16.5 [facility] Blood lymphocytes/100 leukoc ytesOrdered By: Len Zaragoza on 12-08-2022 Lymphocytes/100 WBC (Bld) 23.7 % 19-41 [facility] Blood monocytes/100 leukocyt esOrdered By: Len Zaragoza on 12-08-2022 Monocytes/100 WBC (Bld) 7.9 % 0-10 [facility] Blood platelet mean volumeOr dered By: Len Zaragoza on 12-08-2022 Platelet mean volume (Bld) [Entitic vol] 10.5 fL 6.2-12.0 [facility] Chocolate RASTOrdered By: Ra lisset Zaragoza on 12-08-2022 Chocolate IgE Qn (S) <0.10 kU/L Class 0 [facility] Comment on above: Performed at: [facility] dariel [address] [id number] Director: Efrain Campbell PhD, Phone: [phone] at: [facility] [address]co[address] [id number] Director: Alonzo Jansen MD, Phone: [phone] Determination of erythrocyte mean corpuscular volume (MCV)Ordered By: Len Zaragoza on 12-08-2022 MCV (RBC) [Entitic vol] 89.9 fL 80-94 [facility] Erythrocyte sedimentation ra teOrdered By: Len Zaragoza on 12-08-2022 ESR (Bld) [Velocity] 1 mm/h 0-20 [facility] Hematocrit Auto (Bld) [Volum e fraction]Ordered By: Len Zaragoza on 12-08-2022 Hematocrit (Bld) [Volume fraction] 50.5 % 40-54 [facility] Interpretation of serum or p lasma protein pattern by immunofixation (narrative resultOrdered By: Len Zaragoza on 12-08-2022 Protein Fractions Immunofixation Artemio [Interp] See comment [facility] Comment on above: Result: Not Observed Laboratory - Chemistry and C hemistry - challengeOrdered By: Len Zaragoza on 12-08-2022 ALP [Catalytic activity/Vol] 149 U/L 45-117 [facility] ALT [Catalytic activity/Vol] 30 U/L 16-61 [facility] CO2 [Moles/Vol] 29.0 mmol/L 21.0-32.0 [facility] Urea nitrogen/Creatinine [Mass ratio] 8.0 mg/mg 10-20 [facility] Laboratory - Hematology and Cell countsOrdered By: Len Zaragoza on 12-08-2022 Erythrocyte distribution width (RBC) [Entitic vol] 39.8 fL 35.1-43.9 [facility] Erythrocyte distribution width (RBC) [Ratio] 12.0 % 11.6-14.6 [facility] Immature granulocytes/100 WBC (Bld) 0.100 % 0.0-0.9 [facility] Comment on above: IG% - Immature Granu locytes (promyelocytes, myelocytes and metamyelocytes) > 1% indicates that a LEFT SHIFT is Present. MCH (RBC) [Entitic mass] 30.6 pg 27.0-32.0 [facility] Nucleated RBC/100 WBC (Bld) [Ratio] 0 % 0-5 [facility] Laboratory - Miscellaneous t estsOrdered By: Len Zaragoza on 12-08-2022 Service comment (Unsp spec) [Interp] Comment . [facility] Comment on above: Levels of Specific I gE Class Description of Class ----- < 0.10 0 Negative 0.10 - 0.31 0/I Equivocal/Low 0.32 - 0.55 I Low 0.56 - 1.40 II Moderate 1.41 - 3.90 III High 3.91 - 19.00 IV Very High 19.01 - 100.00 V Very High >100.00 Very High MCHC Auto (RBC) [Mass/Vol]Or dered By: Len Zaragoza on 12-08-2022 MCHC (RBC) [Mass/Vol] 34.1 g/dL 32-[address] [facility] No Panel InformationOrdered By: Len Zaragoza on 12-08-2022 Addendum Document Comment . [facility] Comment on above: Protein electrophore sis scan will follow via computer,mail, or director business development delivery. Centromere B Antibody <0.2 AI 0.0-0.[address] [facility] Endomysial IgA Antibody Negative Negative [facility] Estimated GFR (MDRD) Amer 120 mL/min >60 [facility] Comment on above: GFR Calc Estimated GFR (MDRD) Non-Af Amer 99 mL/min >60 [facility] Comment on above: Non- GFR Calc Immunoglobulin E 546 IU/mL 6-495 [facility] RUG SCRATCHER Antibody 0.4 AI 0.0-0.9 [facility] Scallop Allergen 0.22 kU/L Class 0/I [facility] Seafood Group Allergens (RAST) Positive . [facility] Comment on above: Allergens in this mi x are: Blue mussel Fish [place] Shrimp Tuna Sesame Seed Allergen IgE Antibody 1.20 kU/L Class II [facility] Shrimp Allergen 0.91 kU/L Class II [facility] Platelets bldOrdered By: Harpreet Zaragoza on 12-08-2022 Platelets (Bld) [#/Vol] 228 10*3/uL 150-450 [facility] Serum DNA double strand anti body assay (units/volume)Ordered By: Len Zaragoza on 12-08-2022 DNA double strand Ab Qn (S) [IU]/mL 0-9 [facility] Comment on above: Negative <5 Equivoca l 5 - 9 Positive >9 Serum Aurora-1 antibody assay (u nits/volume)Ordered By: Len Zaragoza on 12-08-2022 Aurora-1 extractable nuclear Ab Qn (S) <0.2 AI 0.0-0.9 [facility] Serum Scl-70 extractable nuc lear antibody assay (units/volume)Ordered By: Len Zaragoza on 12-08-2022 SCL-70 extractable nuclear Ab Qn (S) <0.2 AI 0.0-0.9 [facility] Serum Galvin extractable nucl ear antibody detectionOrdered By: Len Zaragoza on 12-08-2022 Galvin extractable nuclear Ab Ql (S) <0.2 AI 0.0-0.9 [facility] Serum [id number] measu rement by electrophoresisOrdered By: Len Zaragoza on 12-08-2022 Alpha 1 globulin Elph [Mass/Vol] 0.2 g/dL 0.0-0.4 [facility] Alpha 1 globulin Elph [Mass/Vol] 0.6 g/dL 0.4-1.0 [facility] Serum beef IgE antibody assa y (units/volume)Ordered By: Len Zaragoza on 12-08-2022 Beef IgE Qn (S) 0.12 kU/L Class 0/I [facility] Serum black walnut IgE antib courtney assay (units/volume)Ordered By: Len Zaragoza on 12-08-2022 [place] IgE Qn (S) 1.57 kU/L Class III [facility] Serum clam IgE antibody assa y (units/volume)Ordered By: Len Zaragoza on 12-08-2022 Clam IgE Qn (S) 0.11 kU/L Class 0/I [facility] Serum classic neutrophil cyt oplasmic antibody assay (units/volume)Ordered By: Len Zaragoza on 12-08-2022 Neutrophil cytoplasmic Ab.classic Qn (S) <1:20 titer Neg:<1:20 [facility] Serum codfish IgE antibody a ssay (units/volume)Ordered By: Len Zaragoza on 12-08-2022 Codfish IgE Qn (S) <0.10 kU/L Class 0 [facility] Serum corn IgE antibody assa y (units/volume)Ordered By: Len Zaragoza on 12-08-2022 [place] IgE Qn (S) 0.82 kU/L Class II [facility] Serum cow milk IgE antibody assay (units/volume)Ordered By: Len Zaragoza on 12-08-2022 Cow milk IgE Qn (S) 0.42 kU/L Class I ost er [facility] Serum egg white IgE antibody assay (units/volume)Ordered By: Len Zaragoza on 12-08-2022 Egg white IgE Qn (S) 0.23 kU/L Class 0/I [facility] Serum globulin measurement ( mass/volume)Ordered By: Len Zaragoza on 12-08-2022 Globulin (S) [Mass/Vol] 3.2 g/dL 2.2-3.9 [facility] Serum or plasma C reactive p rotein measurement (mass/volume)Ordered By: Len Zaragoza on 12-08-2022 CRP [Mass/Vol] mg/L 0.0-3.0 [facility] Comment on above: C-Reactive Protein ( CRP) provides useful information for thediagnosis, therapy and monitoring of inflammatory processesand associated diseases. For the evaluation of Relative Riskfor Cardiovascular Disease, a High Sensitivity CRP (HSCRP)should be ordered. Serum or plasma IgA measurem ent (mass/volume)Ordered By: Len Zaragoza on 12-08-2022 IgA [Mass/Vol] 381 mg/dL 90-386 [facility] Serum or plasma IgG measurem ent (mass/volume)Ordered By: Len Zaragoza on 12-08-2022 IgG [Mass/Vol] 1119 mg/dL 603-1613 [facility] Serum or plasma IgM measurem ent (mass/volume)Ordered By: Len Zaragoza on 12-08-2022 IgM [Mass/Vol] 50 mg/dL 20-172 [facility] Serum or plasma albumin na urement (mass/volume)Ordered By: Len Zaragoza on 12-08-2022 Albumin [Mass/Vol] 3.9 g/dL 3.2-5.0 [facility] Serum or plasma albumin/glob ulin mass ratioOrdered By: Len Zaragoza on 12-08-2022 Albumin/Globulin [Mass ratio] 1.0 {ratio} 0.9-2.4 [facility] Serum or plasma beta globuli n measurement by electrophoresis (mass/volume)Ordered By: Len Zaragoza on 12-08-2022 Beta globulin Elph [Mass/Vol] 1.3 g/dL 0.7-1.3 [facility] Serum or plasma calcium na urement (mass/volume)Ordered By: Len Zaragoza on 12-08-2022 Calcium [Mass/Vol] 9.3 mg/dL 8.5-10.1 [facility] Serum or plasma creatinine m easurement (mass/volume)Ordered By: Len Zaragoza on 12-08-2022 Creatinine [Mass/Vol] 1.00 mg/dL 0.70-1.[address] [facility] Comment on above: The validity of the calculated GFR & GFRAA in patients over 70 years has not been determined. Clinical correlation is essential. Serum or plasma gamma globul in measurement by electrophoresis (mass/volume)Ordered By: Len Zaragoza on 12-08-2022 Gamma globulin Elph [Mass/Vol] 1.0 g/dL 0.4-1.8 [facility] Serum or plasma immunoelectr ophoresis interpretation (nominal result)Ordered By: Len Zaragoza on 12-08-2022 Interpretation IEP [Interp] Comment . [facility] Comment on above: No monoclonality det ected. Serum or plasma urea nitroge n measurement (mass/volume)Ordered By: Len Zaragoza on 12-08-2022 Urea nitrogen [Mass/Vol] 8 mg/dL 7-18 [facility] Serum peanut IgE antibody as say (units/volume)Ordered By: Len Zaragoza on 12-08-2022 Peanut IgE Qn (S) 0.91 kU/L Class II [facility] Serum perinuclear neutrophil cytoplasmic antibody titer by immunofluorescenceOrdered By: Len Zaragoza on 12-08-2022 Neutrophil cytoplasmic Ab.perinuclear IF (S) [Titer] <1:20 titer Neg:<1:20 [facility] Comment on above: The presence of posi tive fluorescence exhibiting P-ANCA orC-ANCA patterns alone is not specific for the diagnosis ofWegener's Granulomatosis (WG) or microscopic polyangiitis.Decisions about treatment should not be based solely onANCA IFA results. The International ANCA Group Consensusrecommends follow up testing of positive sera with both ID-3 and MPO-ANCA enzyme immunoassays. As many as 5% serumsamples are positive only by EIA. Ref. AM J Clin Fadbnf2706;111:507-513. Serum pork IgE antibody assa y (units/volume)Ordered By: Len Zaragoza on 12-08-2022 Pork IgE Qn (S) 0.21 kU/L Class 0/I [facility] Serum soybean IgE antibody a ssay (units/volume)Ordered By: Len Zaragoza on 12-08-2022 Soybean IgE Qn (S) 0.21 kU/L Class 0/I [facility] Serum tissue transglutaminas e IgA antibody assay (units/volume)Ordered By: Len Zaragoza on 12-08-2022 tTG IgA Qn (S) <2 U/mL 0-3 [facility] Comment on above: Negative 0 - 3 Weak Positive 4 - 10 Positive >10 Tissue Transglutaminase (tTG) has been identified as the endomysial antigen. Studies have demonstr- ated that endomysial IgA antibodies have over 99% specificity for gluten sensitive enteropathy. Serum wheat IgE antibody ass ay (units/volume)Ordered By: Len Zaragoza on 12-08-2022 Wheat IgE Qn (S) 0.54 kU/L Class I [facility] Serum whole egg IgE antibody assay (units/volume)Ordered By: Len Zaragoza on 12-08-2022 Whole Egg IgE Qn (S) 0.31 kU/L Class 0/I [facility] Thin prep Papanicolaou smear with manual screeningOrdered By: Len Zaragoza on 12-08-2022 Thin prep Papanicolaou smear with manual screening 16 U/L 15-37 [facility] Thin prep Papanicolaou smear with manual screening 4 5-15 [facility] Thin prep Papanicolaou smear with manual screening 1.3 0.7-1.7 [facility] Total protein bloodOrdered B y: Len Friend on 12-08-2022 Protein [Mass/Vol] 7.3 g/dL 6.0-8.5 [facility] CNPNon 11-24-2022 [facility] Telephone (UCWSTR) ----- LESLIE THOMAS ([id number]) 10/00 M Date Time Provider Department 11/24/22 [facility] During your visit today, we recorded the following information about you: MARISOL Mann 11/24/2022 8:55 AM Signed Please let patient know that XR of hand is negative for fracture. Rest and ice as discussed at visit. Follow-up if symptoms worsen or continue. Soha Taylor LPN 11/24/2022 9:28 AM Signed Patient notified and verbalized understanding of instructions given.Soha Taylor LPN Allergies As of Date: 11/24/2022 Noted Allergy Reaction OTHER OMEGA-3S 02/09/2012 10 - Anaphylaxis Comments: Tree nuts Environmental [Other] 11/04/2010 14 - Other: See Comments Comments: Cats Cockroach dustmites molds (September through May) trees (September, October and November) grasses (November and December) weeds (February, March and April) NUT - UNSPECIFIED 03/22/2018 10 - Anaphylaxis OMNICEF (CEFDINIR) 11/04/2010 4 - Hives tree nuts [Other] 11/04/2010 10 - Anaphylaxis Comments: Throat swells up Date Reviewed: 11/21/2022 Reviewed by: Cindi Wells MA - Fully Assessed Reason for Visit: Results [95] Prescriptions as of 11/24/2022 - famotidine (PEPCID) 20 mg tablet Take 1 tablet by mouth at bedtime as needed. - fluticasone (FLOVENT HFA) 220 mcg/actuation inhaler 2 Puffs twice daily. - EPINEPHrine (EPIPEN 2-SHERLY) 0.3 mg/0.3 mL auto-injector Inject as directed to the anterior thigh as directed by symptoms in the allergy action plan. If used the patient must seek emergency medical care. May repeat a second dose after 5 minutes for failure to respond or worsening symptomatology while awaiting EMS. Dispensed to twin packs with trainers. Dispense generic Epipens. - EPINEPHrine (AUVI-Q) 0.3 mg/0.3 mL auto-injector Inject to the anterior thigh as directed by signs and symptoms in the allergy action plan. If used the patient needs to seek emergency medical care. May repeat a second dose after 5 minutes for failure respond or worsening symptoms. Dispense 2 twin packs with trainers - fluticasone (FLONASE) 50 mcg/actuation nasal spray Use 2 Sprays in each nostril once daily. - Levocetirizine (XYZAL) 5 mg tablet Take 1 tablet by mouth once daily as needed (for itching, sneezing or runny nose. ). - albuterol HFA (PROVENTIL HFA, VENTOLIN HFA) 90 mcg/actuation inhaler Inhale 2 Puffs as instructed every 4 hours as needed. Use with spacer. - rizatriptan (MAXALT CARPET TILE LAYER) 5 mg disintegrating tablet For a severe migraine take 1 tablet by mouth. If no improvement in 2 hours may take a second tablet. May take 2 doses of Maxalt in one day, 4 doses and 2 consecutive days, no more than 8 doses per month. 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 XR Hand - right PA and Later al and Obliqueon 11-24-2022 IMPRESSION: Negative 3 views of the right hand. Tag Clerk: PSCB Transcribe Date/Time: Nov 24 2022 8:33A Dictated by : LISSETTE SANTANA MD This examination was interpreted and the report reviewed and electronically signed by: LISSETTE SANTANA MD on Nov 24 2022 8:41AM [facility] DIVISION OF RADIOLOGY * * *Final Report* * * DATE OF EXAM: Nov 23 2022 5:37PM WOX [id number] - XR HAND 3V PA/LAT/OBL RT / PROCEDURE REASON: Hand pain, right * * * * Physician Interpretation * * * * EXAM TITLE: XR HAND 3V PA/LAT/OBL RT EXAM DATE/TIME: 11/23/2022 5:37 PM COMPARISON: None. CLINICAL INDICATION/HISTORY: Hand pain. TECHNIQUE: PA, lateral and oblique views of the right hand are presented. FINDINGS: No acute fractures or subluxations are noted. The joint spaces are well preserved. The mineralization of the bones is normal. There is no significant soft tissue swelling. DIVISION OF RADIOLOGY Provider, [facility] - 11/24/2022 * * *Final Report* * * DATE OF EXAM: Nov 23 2022 5:37PM WOX [id number] - XR HAND 3V PA/LAT/OBL RT / PROCEDURE REASON: Hand pain, right * * * * Physician Interpretation * * * * EXAM TITLE: XR HAND 3V PA/LAT/OBL RT EXAM DATE/TIME: 11/23/2022 5:37 PM COMPARISON: None. CLINICAL INDICATION/HISTORY: Hand pain. TECHNIQUE: PA, lateral and oblique views of the right hand are presented. FINDINGS: No acute fractures or subluxations are noted. The joint spaces are well preserved. The mineralization of the bones is normal. There is no significant soft tissue swelling. IMPRESSION IMPRESSION: Negative 3 views of the right hand. Tag Clerk: MACHO Transcribe Date/Time: Nov 24 2022 8:33A Dictated by : LISSETTE SANTANA MD This examination was interpreted and the report reviewed and electronically signed by: LISSETTE SANTANA MD on Nov 24 2022 8:41AM EST [facility] XR Hand - right PA and Later al and ObliqueOrdered By: [facility] Provider on 11-24-2022 [facility] XR HAND 3V PA/LAT/OBL RTon 0 11-23-2022 XR HAND 3V PA/LAT/OBL RT * * *Final Repo rt* * * DATE OF EXAM: Nov 23 2022 5:37PM WOX [id number] - XR HAND 3V PA/LAT/OBL RT / PROCEDURE REASON: Hand pain, right * * * * Physician Interpretation * * * * EXAM TITLE: XR HAND 3V PA/LAT/OBL RT EXAM DATE/TIME: 11/23/2022 5:37 PM COMPARISON: None. CLINICAL INDICATION/HISTORY: Hand pain. TECHNIQUE: PA, lateral and oblique views of the right hand are presented. FINDINGS: No acute fractures or subluxations are noted. The joint spaces are well preserved. The mineralization of the bones is normal. There is no significant soft tissue swelling. IMPRESSION: Negative 3 views of the right hand. Tag Clerk: MACHO Transcribe Date/Time: Nov 24 2022 8:33A Dictated by : LISSETTE SANTANA MD This examination was interpreted and the report reviewed and electronically signed by: LISSETTE SANTANA MD on Nov 24 2022 8:41AM EST [id number] Normal [facility] XR Hand - right PA and Later al and Obliqueon 11-23-2022 Radiology Study observation (narrative) [facility] CNOVon 11-21-2022 CNOV Office Visit (UCWSTR ) ----- WILLIAMLESLIE ([id number]) [birth year] M Date Time Provider Department 11/21/22 12:15 PM JOSE FRANCISCO FREYWSTR During your visit today, we recorded the following information about you: Temperature Pulse Respiration Blood pressure 97.8 degrees 100/minute 18/minute 122/84 Weight 83.7 kg Jose Francisco Frey MD 11/21/2022 12:31 PM Signed Patient presents with: Hand Injury: R hand x2 months HPI: Right hand pain: Duration: injured on a punching machine 2 months ago, flares when he attempts to punch with it again. Re-injured yesterday with 1 punch. Location: right 2nd knuckle Character: sharp to touch, sore with making a fist, tender bump on the knuckle Radiation: no Aggravating: punching, touching Relieving: rest Pain relievers: tried ibuprofen and ice Associated: swelling Pertinent negatives: Denies numbness PAST MEDICAL HISTORY Diagnosis Date Asthma Bone tumor right leg Eczema Eosinophilic esophagitis Esophageal stricture Status post balloon dilatation of esophageal stricture MEDICATIONS: famotidine (PEPCID) 20 mg tablet Take 1 tablet by mouth at bedtime as needed. fluticasone (FLOVENT HFA) 220 mcg/actuation inhaler 2 Puffs twice daily. EPINEPHrine (EPIPEN 2-SHERLY) 0.3 mg/0.3 mL auto-injector Inject as directed to the anterior thigh as directed by symptoms in the allergy action plan. If used the patient must seek emergency medical care. May repeat a second dose after 5 minutes for failure to respond or worsening symptomatology while awaiting EMS. Dispensed to twin packs with trainers. Dispense generic Epipens. EPINEPHrine (AUVI-Q) 0.3 mg/0.3 mL auto-injector Inject to the anterior thigh as directed by signs and symptoms in the allergy action plan. If used the patient needs to seek emergency medical care. May repeat a second dose after 5 minutes for failure respond or worsening symptoms. Dispense 2 twin packs with trainers fluticasone (FLONASE) 50 mcg/actuation nasal spray Use 2 Sprays in each nostril once daily. Levocetirizine (XYZAL) 5 mg tablet Take 1 tablet by mouth once daily as needed (for itching, sneezing or runny nose. ). rizatriptan (MAXALT CARPET TILE LAYER) 5 mg disintegrating tablet For a severe migraine take 1 tablet by mouth. If no improvement in 2 hours may take a second tablet. May take 2 doses of Maxalt in one day, 4 doses and 2 consecutive days, no more than 8 doses per month. albuterol HFA (PROVENTIL HFA, VENTOLIN HFA) 90 mcg/actuation inhaler Inhale 2 Puffs as instructed every 4 hours as needed. Use with spacer. ALLERGIES: ALLERGIES Allergen Reactions Other Clint-3s Anaphylaxis Tree nuts Environmental [Othe* Other: See Comments Cats Cockroach dustmites molds (September through May) trees (September, October and November) grasses (November and December) weeds (February, March and April) Nut - Unspecified Anaphylaxis Omnicef [Cefdinir] Hives Tree Nuts [Other] Anaphylaxis Throat swells up VITALS: BP 122/84 Pulse 100 Temp 36.6 ?C (97.8 ?F) Resp 18 Wt 83.7 kg (184 lb 9.6 oz) SpO2 99% BMI 25.90 kg/m? PE: Pleasant, in no acute distress. HAND: right. Mild erythema and edema of the distal second metacarpal. Full finger range of motion. Normal index finger strength against resistance. Tender second MCP joint/2nd metacarpal head. Nontender fingers, other metacarpals, and wrist. ASSESSMENT/PLAN: 1. Hand pain, right - ICD9: 729.5, ICD10: M79.641 Possible second metacarpal fracture with unknown healing status. - XR HAND GENERAL 3V PA/LAT/OBL RIGHT -he will return Wednesday evening for x-ray. Orthopedic consult recommended. He will follow-up with orthopedics if there is a fracture, rest the hand x-ray is benign. Jose Francisco Frey MD Allergies As of Date: 11/21/2022 Noted Allergy Reaction OTHER OMEGA-3S 02/09/2012 10 - Anaphylaxis Comments: Tree nuts Environmental [Other] 11/04/2010 14 - Other: See Comments Comments: Cats Cockroach dustmites molds (September through May) trees (September, October and November) grasses (November and December) weeds (February, March and April) NUT - UNSPECIFIED 03/22/2018 10 - Anaphylaxis OMNICEF (CEFDINIR) 11/04/2010 4 - Hives tree nuts [Other] 11/04/2010 10 - Anaphylaxis Comments: Throat swells up Date Reviewed: 11/21/2022 Reviewed by: Cindi Wells MA - Fully Assessed Reason for Visit: Hand Injury [1974] Cmt: R hand x2 months Primary Visit Diagnosis:Hand pain, right [M79.641] Order(s):XR HAND GENERAL 3V PA/LAT/OBL RIGHT [[id number]] Order #: [id number] FUTURE Prescriptions as of 11/21/2022 - famotidine (PEPCID) 20 mg tablet Take 1 tablet by mouth at bedtime as needed. - fluticasone (FLOVENT HFA) 220 mcg/actuation inhaler 2 Puffs twice daily. - EPINEPHrine (EPIPEN 2-SHERLY) 0.3 mg/0.3 mL auto-injector Inject as directed to the anterior thigh as directed by symptoms in the allerg (more content not included)... Normal [facility] Basic Metabolic Panelon 03- Calcium [Mass/Vol] 9.9 mg/dL Normal 8.4-10.4 [facility] Comment on above: Performed By: #### B MP3 #### [facility] [address] [place] [address] Anion gap [Moles/Vol] 8 mmol/L Normal 3-13 [facility] Comment on above: Performed By: #### B MP3 #### [facility] [address] [place] [address] CO2 [Moles/Vol] 30 mmol/L Normal 22-30 [facility] Comment on above: Performed By: #### B MP3 #### [facility] [address] [place] [address] Creatinine [Mass/Vol] 1.17 mg/dL Normal 0.52-1.25 [facility] Comment on above: Performed By: #### B MP3 #### [facility] [address] [place] [address] GFR/1.73 sq M predicted among blacks MDRD (S/P/Bld) [Vol rate/Area] mL/min/{1.73_m2} Normal >60 [facility] Comment on above: Performed By: #### B MP3 #### [facility] [address] [place] [address] GFR/1.73 sq M predicted among non-blacks MDRD (S/P/Bld) [Vol rate/Area] 89.0 mL/min/{1.73_m2} Normal >60 [facility] Comment on above: Result Comment: KDIG O guidelines provide the following GFR categories: Stage GFR(ml/min/1.73 m2) Terms G1 >=90 Normal or high G2 60-89 Mildly decreased* G3a 45-59 Mildly to moderately decreased G3b 30-44 Moderately to severely decreased G4 15-29 Severely decreased G5 <15 Kidney failure *Relative to young adult level. In the absence of evidence of kidney damage, neither GFR category G1 nor G2 fulfill the criteria for CKD. The CKD-EPI equation is validated in individuals 18 years of age and older. Currently the best equation for estimating glomerular filtration rate (GFR) from serum creatinine in children is the Bedside Renee equation. It is less accurate in patients with extremes of muscle mass, restriction of dietary protein, ingestion of creatine, extra-renal metabolism of creatinine, or treatment with medications that affect renal tubular creatinine secretion. Performed By: #### B MP3 #### [facility] [address] [place] [address] Glucose [Mass/Vol] 103 mg/dL High 70-100 [facility] Comment on above: Performed By: #### B MP3 #### [facility] [address] [place] [address] Urea nitrogen [Mass/Vol] 8 mg/dL Normal 7-20 [facility] Comment on above: Performed By: #### B MP3 #### [facility] [address] [place] [address] Chloride [Moles/Vol] 103 mmol/L Normal 98-107 [facility] Comment on above: Performed By: #### B MP3 #### [facility] [address] [place] [address] Potassium [Moles/Vol] 4.2 mmol/L Normal 3.5-5.1 [facility] Comment on above: Performed By: #### B MP3 #### [facility] [address] [place] [address] Sodium [Moles/Vol] 141 mmol/L Normal 135-145 [facility] Comment on above: Performed By: #### B MP3 #### [facility] [address] [place] [address] Anion gap [Moles/Vol] 8 mmol/L 3 - 13 mmol/L [facility] Work Phone: Calcium [Mass/Vol] 9.9 mg/dL 8.4 - 10. 4 mg/dL [facility] Work Phone: Chloride [Moles/Vol] 103 mmol/L 98 - 10 7 mmol/L [facility] Work Phone: CO2 [Moles/Vol] 30 mmol/L 22 - 30 mmol/L [facility] Work Phone: Creatinine [Mass/Vol] 1.17 mg/dL 0.52 - 1.25 mg/dL [facility] Work Phone: EGFR IF NonAfrican [place]uran 89.0 mL/min >60 [facility] Work Phone: Comment on above: KDIGO guidelines pro vide the following GFR categories: Stage GFR(ml/min/1.73 m2) Terms G1 >=90 Normal or high G2 60-89 Mildly decreased* G3a 45-59 Mildly to moderately decreased G3b 30-44 Moderately to severely decreased G4 15-29 Severely decreased G5 <15 Kidney failure *Relative to young adult level. In the absence of evidence of kidney damage, neither GFR category G1 nor G2 fulfill the criteria for CKD. The CKD-EPI equation is validated in individuals 18 years of age and older. Currently the best equation for estimating glomerular filtration rate (GFR) from serum creatinine in children is the Bedside Renee equation. It is less accurate in patients with extremes of muscle mass, restriction of dietary protein, ingestion of creatine, extra-renal metabolism of creatinine, or treatment with medications that affect renal tubular creatinine secretion. GFR/1.73 sq M predicted among blacks MDRD (S/P/Bld) [Vol rate/Area] mL/min/{1.73_m2} >60 mL/min [facility] Work Phone: Glucose [Mass/Vol] 103 mg/dL High 70 - 100 mg/dL [facility] Work Phone: Interpretation and review of laboratory results Abnormal [facility] Work Phone: Potassium [Moles/Vol] 4.2 mmol/L 3.5 - 5.1 mmol/L [facility] Work Phone: Sodium [Moles/Vol] 141 mmol/L 135 - 145 mmol/L [facility] Work Phone: Urea nitrogen [Mass/Vol] 8 mg/dL 7 - 20 mg/dL [facility] Work Phone: Test Performed by [facility], [address] [place] [address] [place] [address] [facility] Work Phone: CT HEAD WO CONTRASTon 2020 [place], [facility] Results From [facility] - 09/22/2020 1:45 PM EDT Patient Name: LESLIE THOMAS Computed Tomography ACCESSION EXAM DATE/TIME PROCEDURE ORDERING PROVIDER [id number] 09/22/2020 13:[address] Head or Brain w/o MD BOSSMAN, LUIS Elizabeth Contrast CPT code 58932 Reason For Exam (CT Head or Brain w/o Contrast) HEAD PAIN ... PIOR TO CTA HEAD/NECK Report CT HEAD WITHOUT CONTRAST: CLINICAL INDICATION: HEAD PAIN COMPARISON: None Technique: Axial CT images were obtained from skull base to vertex. Images were reformatted in coronal and sagittal projections. Intravenous contrast: None Findings: There is no CT evidence of an acute intracranial hemorrhage, territorial infarction, midline shift, mass effect, or extra-axial collection. The maloney-white differentiation remains preserved and the basal cisterns are patent. Ventricles are appropriate in size for the patient's age and level of parenchymal volume. No acute fractures or suspicious osseous lesions seen. Mild mucosal thickening within the paranasal sinuses. Mastoid air cells remain well aerated. IMPRESSION: No acute intracranial hemorrhage or territorial infarct. CTA HEAD AND NECK: CLINICAL INFORMATION: Head pain COMPARISON: None CTA HEAD: After 75 ml Isovue IV contrast, 0.5 mm axial cuts were obtained through the brain. Coronal and sagittal reconstructions are reviewed. Additionally, 3-D reformats were performed by myself on a separate workstation. FINDINGS: After IV contrast, there are no regions of abnormal enhancement. ANTERIOR CIRCULATION Right Cavernous Carotid Artery: Patent. No focal stenosis, segmental occlusion or aneurysm. Computed Tomography Report Right Middle Cerebral Artery: Patent. No focal stenosis, segmental occlusion or aneurysm. Right Anterior Cerebral Artery: Patent. No focal stenosis, segmental occlusion or aneurysm. Left Cavernous Carotid Artery: Patent. No focal stenosis, segmental occlusion or aneurysm. Left Middle Cerebral Artery: Patent. No focal stenosis, segmental occlusion or aneurysm. Left Anterior Cerebral Artery: Patent. No focal stenosis, segmental occlusion or aneurysm. Anterior Communicating Artery: A joint proximal anterior cerebral artery splits into left and right branches distally along the frontal lobes, a normal variant. Posterior Communicating: Patent on the left, not seen on the right POSTERIOR CIRCULATION Right Vertebral Artery: Patent. No focal stenosis, segmental occlusion, dissection, or aneurysm. Left Vertebral Artery: Patent. No focal stenosis, segmental occlusion, dissection, or aneurysm. Basilar Artery: Patent. No focal stenosis, segmental occlusion, or aneurysm. Right Posterior Cerebral Artery: Patent. No focal stenosis, segmental occlusion, dissection, or aneurysm. Left Posterior Cerebral Artery: Patent. No focal stenosis, segmental occlusion, dissection, or aneurysm. Superior Cerebellar Arteries: Patent. AICAs: Not well seen. PICAs: Patent. CTA NECK: After 75 ml Isovue IV contrast, 1 mm axial cuts were obtained through the neck. Coronal and sagittal reconstructed images are reviewed. Additionally, 3-D reformats were performed by myself on a separate workstation. FINDINGS: AORTIC ARCH: Three-vessel. BRACHIOCEPHALIC ORIGIN AND RIGHT COMMON CAROTID ORIGIN: Patent without significant stenosis. RIGHT COMMON CAROTID ARTERY: Patent with no hemodynamically significant stenosis. RIGHT CAROTID BIFURCATION/PROX INT CAROTID ARTERY: Minimal atherosclerotic plaque with no significant stenosis by NASCET criteria. CERVICAL SEGMENT RIGHT CAROTID ARTERY: Patent with no hemodynamically significant stenosis. LEFT COMMON CAROTID: Patent with no hemodynamically significant stenosis. LEFT CAROTID BIFURCATION/PROX LEFT INT CAROTID: Minimal atherosclerotic plaque with no significant stenosis by NASCET criteria. CERVICAL SEGMENT LEFT INTERNAL CAROTID: Patent with no hemodynamically significant stenosis. RIGHT VERTEBRAL ARTERY:Patent with no hemodynamically significant stenosis or dissection. LEFT VERTEBRAL ARTERY:Patent with no hemodynamically significant stenosis or dissection. ACCESSORY STRUCTURES: The thyroid is normal. A few borderline enlarged left cervical lymph nodes are seen. The airways are patent and the lung apices are clear. Minimal degenerative changes are seen throughout the cervical spine. Computed Tomography Report COMBINED IMPRESSION: No flow-limiting stenosis, aneurysmal dilatation or occlusion is seen within the arteries of the head or neck. Report Dictated on --- Final --- Dictating Physician: MD GEORGE JAMES Signed Date and Time: 09/22/2020 1:44 pm Signed by: MD GEORGE JAMES Transcribed Date and Time: 09/22/2020 1:45 [facility] Work Phone: Patient Name: LESLIE QUARLES Computed Tomography ACCESSION EXAM DATE/TIME PROCEDURE ORDERING PROVIDER [id number] 09/22/2020 13:[address] Head or Brain w/o MD BOSSMAN, LUIS Pretty CPT code 64091 Reason For Exam (CT Head or Brain w/o Contrast) HEAD PAIN ... PIOR TO CTA HEAD/NECK Report CT HEAD WITHOUT CONTRAST: CLINICAL INDICATION: HEAD PAIN COMPARISON: None Technique: Axial CT images were obtained from skull base to vertex. Images were reformatted in coronal and sagittal projections. Intravenous contrast: None Findings: There is no CT evidence of an acute intracranial hemorrhage, territorial infarction, midline shift, mass effect, or extra-axial collection. The maloney-white differentiation remains preserved and the basal cisterns are patent. Ventricles are appropriate in size for the patient's age and level of parenchymal volume. No acute fractures or suspicious osseous lesions seen. Mild mucosal thickening within the paranasal sinuses. Mastoid air cells remain well aerated. IMPRESSION: No acute intracranial hemorrhage or territorial infarct. CTA HEAD AND NECK: CLINICAL INFORMATION: Head pain COMPARISON: None CTA HEAD: After 75 ml Isovue IV contrast, 0.5 mm axial cuts were obtained through the brain. Coronal and sagittal reconstructions are reviewed. Additionally, 3-D reformats were performed by myself on a separate workstation. FINDINGS: After IV contrast, there are no regions of abnormal enhancement. ANTERIOR CIRCULATION Right Cavernous Carotid Artery: Patent. No focal stenosis, segmental occlusion or aneurysm. Computed Tomography Report Right Middle Cerebral Artery: Patent. No focal stenosis, segmental occlusion or aneurysm. Right Anterior Cerebral Artery: Patent. No focal stenosis, segmental occlusion or aneurysm. Left Cavernous Carotid Artery: Patent. No focal stenosis, segmental occlusion or aneurysm. Left Middle Cerebral Artery: Patent. No focal stenosis, segmental occlusion or aneurysm. Left Anterior Cerebral Artery: Patent. No focal stenosis, segmental occlusion or aneurysm. Anterior Communicating Artery: A joint proximal anterior cerebral artery splits into left and right branches distally along the frontal lobes, a normal variant. Posterior Communicating: Patent on the left, not seen on the right POSTERIOR CIRCULATION Right Vertebral Artery: Patent. No focal stenosis, segmental occlusion, dissection, or aneurysm. Left Vertebral Artery: Patent. No focal stenosis, segmental occlusion, dissection, or aneurysm. Basilar Artery: Patent. No focal stenosis, segmental occlusion, or aneurysm. Right Posterior Cerebral Artery: Patent. No focal stenosis, segmental occlusion, dissection, or aneurysm. Left Posterior Cerebral Artery: Patent. No focal stenosis, segmental occlusion, dissection, or aneurysm. Superior Cerebellar Arteries: Patent. AICAs: Not well seen. PICAs: Patent. CTA NECK: After 75 ml Isovue IV contrast, 1 mm axial cuts were obtained through the neck. Coronal and sagittal reconstructed images are reviewed. Additionally, 3-D reformats were performed by myself on a separate workstation. FINDINGS: AORTIC ARCH: Three-vessel. BRACHIOCEPHALIC ORIGIN AND RIGHT COMMON CAROTID ORIGIN: Patent without significant stenosis. RIGHT COMMON CAROTID ARTERY: Patent with no hemodynamically significant stenosis. RIGHT CAROTID BIFURCATION/PROX INT CAROTID ARTERY: Minimal atherosclerotic plaque with no significant stenosis by NASCET criteria. CERVICAL SEGMENT RIGHT CAROTID ARTERY: Patent with no hemodynamically significant stenosis. LEFT COMMON CAROTID: Patent with no hemodynamically significant stenosis. LEFT CAROTID BIFURCATION/PROX LEFT INT CAROTID: Minimal atherosclerotic plaque with no significant stenosis by NASCET criteria. CERVICAL SEGMENT LEFT INTERNAL CAROTID: Patent with no hemodynamically significant stenosis. RIGHT VERTEBRAL ARTERY:Patent with no hemodynamically significant stenosis or dissection. LEFT VERTEBRAL ARTERY:Patent with no hemodynamically significant stenosis or dissection. ACCESSORY STRUCTURES: The thyroid is normal. A few borderline enlarged left cervical lymph nodes are seen. The airways are patent and the lung apices are clear. Minimal degenerative changes are seen throughout the cervical spine. Computed Tomography Report COMBINED IMPRESSION: No flow-limiting stenosis, aneurysmal dilatation or occlusion is seen within the arteries of the head or neck. Report Dictated on --- Final --- Dictating Physician: MD GEORGE JAMES Signed Date and Time: 09/22/2020 1:44 pm Signed by: MD GEORGE JAMES Transcribed Date and Time: 09/22/2020 1:45 [facility] Work Phone: CT Head or Brain w/o Contras ton 09-22-2020 CT Head or Brain w/o Contrast [id number] ACCESSION EXAM DATE/TIME PROCEDURE ORDERING PROVIDER [id number] 09/22/2020 13:[address] Head or Brain w/o MD BOSSMAN, LUIS [place]. Contrast CPT code 20580 Reason For Exam (CT Head or Brain w/o Contrast) HEAD PAIN ... PIOR TO CTA HEAD/NECK Report CT HEAD WITHOUT CONTRAST: CLINICAL INDICATION: HEAD PAIN COMPARISON: None Technique: Axial CT images were obtained from skull base to vertex. Images were reformatted in coronal and sagittal projections. Intravenous contrast: None Findings: There is no CT evidence of an acute intracranial hemorrhage, territorial infarction, midline shift, mass effect, or extra-axial collection. The maloney-white differentiation remains preserved and the basal cisterns are patent. Ventricles are appropriate in size for the patient's age and level of parenchymal volume. No acute fractures or suspicious osseous lesions seen. Mild mucosal thickening within the paranasal sinuses. Mastoid air cells remain well aerated. IMPRESSION: No acute intracranial hemorrhage or territorial infarct. CTA HEAD AND NECK: CLINICAL INFORMATION: Head pain COMPARISON: None CTA HEAD: After 75 ml Isovue IV contrast, 0.5 mm axial cuts were obtained through the brain. Coronal and sagittal reconstructions are reviewed. Additionally, 3-D reformats were performed by myself on a separate workstation. FINDINGS: After IV contrast, there are no regions of abnormal enhancement. ANTERIOR CIRCULATION Right Cavernous Carotid Artery: Patent. No focal stenosis, segmental occlusion or aneurysm. Computed Tomography Report Right Middle Cerebral Artery: Patent. No focal stenosis, segmental occlusion or aneurysm. Right Anterior Cerebral Artery: Patent. No focal stenosis, segmental occlusion or aneurysm. Left Cavernous Carotid Artery: Patent. No focal stenosis, segmental occlusion or aneurysm. Left Middle Cerebral Artery: Patent. No focal stenosis, segmental occlusion or aneurysm. Left Anterior Cerebral Artery: Patent. No focal stenosis, segmental occlusion or aneurysm. Anterior Communicating Artery: A joint proximal anterior cerebral artery splits into left and right branches distally along the frontal lobes, a normal variant. Posterior Communicating: Patent on the left, not seen on the right POSTERIOR CIRCULATION Right Vertebral Artery: Patent. No focal stenosis, segmental occlusion, dissection, or aneurysm. Left Vertebral Artery: Patent. No focal stenosis, segmental occlusion, dissection, or aneurysm. Basilar Artery: Patent. No focal stenosis, segmental occlusion, or aneurysm. Right Posterior Cerebral Artery: Patent. No focal stenosis, segmental occlusion, dissection, or aneurysm. Left Posterior Cerebral Artery: Patent. No focal stenosis, segmental occlusion, dissection, or aneurysm. Superior Cerebellar Arteries: Patent. AICAs: Not well seen. PICAs: Patent. CTA NECK: After 75 ml Isovue IV contrast, 1 mm axial cuts were obtained through the neck. Coronal and sagittal reconstructed images are reviewed. Additionally, 3-D reformats were performed by myself on a separate workstation. FINDINGS: AORTIC ARCH: Three-vessel. BRACHIOCEPHALIC ORIGIN AND RIGHT COMMON CAROTID ORIGIN: Patent without significant stenosis. RIGHT COMMON CAROTID ARTERY: Patent with no hemodynamically significant stenosis. RIGHT CAROTID BIFURCATION/PROX INT CAROTID ARTERY: Minimal atherosclerotic plaque with no significant stenosis by NASCET criteria. CERVICAL SEGMENT RIGHT CAROTID ARTERY: Patent with no hemodynamically significant stenosis. LEFT COMMON CAROTID: Patent with no hemodynamically significant stenosis. LEFT CAROTID BIFURCATION/PROX LEFT INT CAROTID: Minimal atherosclerotic plaque with no significant stenosis by NASCET criteria. CERVICAL SEGMENT LEFT INTERNAL CAROTID: Patent with no hemodynamically significant stenosis. RIGHT VERTEBRAL ARTERY:Patent with no hemodynamically significant stenosis or dissection. LEFT VERTEBRAL ARTERY:Patent with no hemodynamically significant stenosis or dissection. ACCESSORY STRUCTURES: The thyroid is normal. A few borderline enlarged left cervical lymph nodes are seen. The airways are patent and the lung apices are clear. Minimal degenerative changes are seen throughout the cervical spine. Computed Tomography Report COMBINED IMPRESSION: No flow-limiting stenosis, aneurysmal dilatation or occlusion is seen within the arteries of the head or neck. Report Dictated on Final Dictating Physician: MD GEORGE JAMES Signed Date and Time: 09/22/2020 1:44 pm Signed by: MD GEORGE JAMES Transcribed Date and Time: 09/22/2020 1:45 Normal [facility] CTA Head Neck W WO Contrasto n 09-22-2020 [facility], [facility] Incoming Radiology Results From [facility] - 09/22/2020 1:45 PM EDT [facility]: [id number] ACCESSION EXAM DATE/TIME PROCEDURE ORDERING PROVIDER [id number] 09/22/2020 13:00 EDT CTA Head/Neck w/ + w/o MD BOSSMAN, LUIS Elizabeth contrast CPT code 68640 [id number] Q9967 Reason For Exam (CTA Head/Neck w/ + w/o contrast) severe headache after lifting weights - now for two days - previous neck fracture Report CT HEAD WITHOUT CONTRAST: CLINICAL INDICATION: HEAD PAIN COMPARISON: None Technique: Axial CT images were obtained from skull base to vertex. Images were reformatted in coronal and sagittal projections. Intravenous contrast: None Findings: There is no CT evidence of an acute intracranial hemorrhage, territorial infarction, midline shift, mass effect, or extra-axial collection. The maloney-white differentiation remains preserved and the basal cisterns are patent. Ventricles are appropriate in size for the patient's age and level of parenchymal volume. No acute fractures or suspicious osseous lesions seen. Mild mucosal thickening within the paranasal sinuses. Mastoid air cells remain well aerated. IMPRESSION: No acute intracranial hemorrhage or territorial infarct. CTA HEAD AND NECK: CLINICAL INFORMATION: Head pain COMPARISON: None CTA HEAD: After 75 ml Isovue IV contrast, 0.5 mm axial cuts were obtained through the brain. Coronal and sagittal reconstructions are reviewed. Additionally, 3-D reformats were performed by myself on a separate workstation. FINDINGS: After IV contrast, there are no regions of abnormal enhancement. Computed Tomography Report ANTERIOR CIRCULATION Right Cavernous Carotid Artery: Patent. No focal stenosis, segmental occlusion or aneurysm. Right Middle Cerebral Artery: Patent. No focal stenosis, segmental occlusion or aneurysm. Right Anterior Cerebral Artery: Patent. No focal stenosis, segmental occlusion or aneurysm. Left Cavernous Carotid Artery: Patent. No focal stenosis, segmental occlusion or aneurysm. Left Middle Cerebral Artery: Patent. No focal stenosis, segmental occlusion or aneurysm. Left Anterior Cerebral Artery: Patent. No focal stenosis, segmental occlusion or aneurysm. Anterior Communicating Artery: A joint proximal anterior cerebral artery splits into left and right branches distally along the frontal lobes, a normal variant. Posterior Communicating: Patent on the left, not seen on the right POSTERIOR CIRCULATION Right Vertebral Artery: Patent. No focal stenosis, segmental occlusion, dissection, or aneurysm. Left Vertebral Artery: Patent. No focal stenosis, segmental occlusion, dissection, or aneurysm. Basilar Artery: Patent. No focal stenosis, segmental occlusion, or aneurysm. Right Posterior Cerebral Artery: Patent. No focal stenosis, segmental occlusion, dissection, or aneurysm. Left Posterior Cerebral Artery: Patent. No focal stenosis, segmental occlusion, dissection, or aneurysm. Superior Cerebellar Arteries: Patent. AICAs: Not well seen. PICAs: Patent. CTA NECK: After 75 ml Isovue IV contrast, 1 mm axial cuts were obtained through the neck. Coronal and sagittal reconstructed images are reviewed. Additionally, 3-D reformats were performed by myself on a separate workstation. FINDINGS: AORTIC ARCH: Three-vessel. BRACHIOCEPHALIC ORIGIN AND RIGHT COMMON CAROTID ORIGIN: Patent without significant stenosis. RIGHT COMMON CAROTID ARTERY: Patent with no hemodynamically significant stenosis. RIGHT CAROTID BIFURCATION/PROX INT CAROTID ARTERY: Minimal atherosclerotic plaque with no significant stenosis by NASCET criteria. CERVICAL SEGMENT RIGHT CAROTID ARTERY: Patent with no hemodynamically significant stenosis. LEFT COMMON CAROTID: Patent with no hemodynamically significant stenosis. LEFT CAROTID BIFURCATION/PROX LEFT INT CAROTID: Minimal atherosclerotic plaque with no significant stenosis by NASCET criteria. CERVICAL SEGMENT LEFT INTERNAL CAROTID: Patent with no hemodynamically significant stenosis. RIGHT VERTEBRAL ARTERY:Patent with no hemodynamically significant stenosis or dissection. LEFT VERTEBRAL ARTERY:Patent with no hemodynamically significant stenosis or dissection. ACCESSORY STRUCTURES: The thyroid is normal. A few borderline enlarged left Computed Tomography Report cervical lymph nodes are seen. The airways are patent and the lung apices are clear. Minimal degenerative changes are seen throughout the cervical spine. COMBINED IMPRESSION: No flow-limiting stenosis, aneurysmal dilatation or occlusion is seen within the arteries of the head or neck. Report Dictated on --- Final --- Dictating Physician: MD GEORGE JAMES Signed Date and Time: 09/22/2020 1:44 pm Signed by: MD GEORGE JAMES Transcribed Date and Time: 09/22/2020 1:45 [facility] Work Phone: [id number] Comput[facility] Tomography ACCESSION EXAM DATE/TIME PROCEDURE ORDERING PROVIDER [id number] 09/22/2020 13:00 EDT CTA Head/Neck w/ + w/o MD BOSSMAN, LUIS Elizabeth contrast CPT code [id number] [id number] Reason For Exam (CTA Head/Neck w/ + w/o contrast) severe headache after lifting weights - now for two days - previous neck fracture Report CT HEAD WITHOUT CONTRAST: CLINICAL INDICATION: HEAD PAIN COMPARISON: None Technique: Axial CT images were obtained from skull base to vertex. Images were reformatted in coronal and sagittal projections. Intravenous contrast: None Findings: There is no CT evidence of an acute intracranial hemorrhage, territorial infarction, midline shift, mass effect, or extra-axial collection. The maloney-white differentiation remains preserved and the basal cisterns are patent. Ventricles are appropriate in size for the patient's age and level of parenchymal volume. No acute fractures or suspicious osseous lesions seen. Mild mucosal thickening within the paranasal sinuses. Mastoid air cells remain well aerated. IMPRESSION: No acute intracranial hemorrhage or territorial infarct. CTA HEAD AND NECK: CLINICAL INFORMATION: Head pain COMPARISON: None CTA HEAD: After 75 ml Isovue IV contrast, 0.5 mm axial cuts were obtained through the brain. Coronal and sagittal reconstructions are reviewed. Additionally, 3-D reformats were performed by myself on a separate workstation. FINDINGS: After IV contrast, there are no regions of abnormal enhancement. Computed Tomography Report ANTERIOR CIRCULATION Right Cavernous Carotid Artery: Patent. No focal stenosis, segmental occlusion or aneurysm. Right Middle Cerebral Artery: Patent. No focal stenosis, segmental occlusion or aneurysm. Right Anterior Cerebral Artery: Patent. No focal stenosis, segmental occlusion or aneurysm. Left Cavernous Carotid Artery: Patent. No focal stenosis, segmental occlusion or aneurysm. Left Middle Cerebral Artery: Patent. No focal stenosis, segmental occlusion or aneurysm. Left Anterior Cerebral Artery: Patent. No focal stenosis, segmental occlusion or aneurysm. Anterior Communicating Artery: A joint proximal anterior cerebral artery splits into left and right branches distally along the frontal lobes, a normal variant. Posterior Communicating: Patent on the left, not seen on the right POSTERIOR CIRCULATION Right Vertebral Artery: Patent. No focal stenosis, segmental occlusion, dissection, or aneurysm. Left Vertebral Artery: Patent. No focal stenosis, segmental occlusion, dissection, or aneurysm. Basilar Artery: Patent. No focal stenosis, segmental occlusion, or aneurysm. Right Posterior Cerebral Artery: Patent. No focal stenosis, segmental occlusion, dissection, or aneurysm. Left Posterior Cerebral Artery: Patent. No focal stenosis, segmental occlusion, dissection, or aneurysm. Superior Cerebellar Arteries: Patent. AICAs: Not well seen. PICAs: Patent. CTA NECK: After 75 ml Isovue IV contrast, 1 mm axial cuts were obtained through the neck. Coronal and sagittal reconstructed images are reviewed. Additionally, 3-D reformats were performed by myself on a separate workstation. FINDINGS: AORTIC ARCH: Three-vessel. BRACHIOCEPHALIC ORIGIN AND RIGHT COMMON CAROTID ORIGIN: Patent without significant stenosis. RIGHT COMMON CAROTID ARTERY: Patent with no hemodynamically significant stenosis. RIGHT CAROTID BIFURCATION/PROX INT CAROTID ARTERY: Minimal atherosclerotic plaque with no significant stenosis by NASCET criteria. CERVICAL SEGMENT RIGHT CAROTID ARTERY: Patent with no hemodynamically significant stenosis. LEFT COMMON CAROTID: Patent with no hemodynamically significant stenosis. LEFT CAROTID BIFURCATION/PROX LEFT INT CAROTID: Minimal atherosclerotic plaque with no significant stenosis by NASCET criteria. CERVICAL SEGMENT LEFT INTERNAL CAROTID: Patent with no hemodynamically significant stenosis. RIGHT VERTEBRAL ARTERY:Patent with no hemodynamically significant stenosis or dissection. LEFT VERTEBRAL ARTERY:Patent with no hemodynamically significant stenosis or dissection. ACCESSORY STRUCTURES: The thyroid is normal. A few borderline enlarged left Computed Tomography Report cervical lymph nodes are seen. The airways are patent and the lung apices are clear. Minimal degenerative changes are seen throughout the cervical spine. COMBINED IMPRESSION: No flow-limiting stenosis, aneurysmal dilatation or occlusion is seen within the arteries of the head or neck. Report Dictated on --- Final --- Dictating Physician: MD GEORGE JAMES Signed Date and Time: 09/22/2020 1:44 pm Signed by: MD GEORGE JAMES Transcribed Date and Time: 09/22/2020 1:45 [facility] Work Phone: CTA Head/Neck w/ + w/o contr jesse 09-22-2020 CTA Head/Neck w/ + w/o contrast Patient Name: LESLIE THOMAS Computed Tomography ACCESSION EXAM DATE/TIME PROCEDURE ORDERING PROVIDER [id number] 09/22/2020 13:00 EDT CTA Head/Neck w/ + w/o MD BOSSMAN, LUIS Parada. contrast CPT code [id number] [id number] Reason For Exam (CTA Head/Neck w/ + w/o contrast) severe headache after lifting weights - now for two days - previous neck fracture Report CT HEAD WITHOUT CONTRAST: CLINICAL INDICATION: HEAD PAIN COMPARISON: None Technique: Axial CT images were obtained from skull base to vertex. Images were reformatted in coronal and sagittal projections. Intravenous contrast: None Findings: There is no CT evidence of an acute intracranial hemorrhage, territorial infarction, midline shift, mass effect, or extra-axial collection. The maloney-white differentiation remains preserved and the basal cisterns are patent. Ventricles are appropriate in size for the patient's age and level of parenchymal volume. No acute fractures or suspicious osseous lesions seen. Mild mucosal thickening within the paranasal sinuses. Mastoid air cells remain well aerated. IMPRESSION: No acute intracranial hemorrhage or territorial infarct. CTA HEAD AND NECK: CLINICAL INFORMATION: Head pain COMPARISON: None CTA HEAD: After 75 ml Isovue IV contrast, 0.5 mm axial cuts were obtained through the brain. Coronal and sagittal reconstructions are reviewed. Additionally, 3-D reformats were performed by myself on a separate workstation. FINDINGS: After IV contrast, there are no regions of abnormal enhancement. Computed Tomography Report ANTERIOR CIRCULATION Right Cavernous Carotid Artery: Patent. No focal stenosis, segmental occlusion or aneurysm. Right Middle Cerebral Artery: Patent. No focal stenosis, segmental occlusion or aneurysm. Right Anterior Cerebral Artery: Patent. No focal stenosis, segmental occlusion or aneurysm. Left Cavernous Carotid Artery: Patent. No focal stenosis, segmental occlusion or aneurysm. Left Middle Cerebral Artery: Patent. No focal stenosis, segmental occlusion or aneurysm. Left Anterior Cerebral Artery: Patent. No focal stenosis, segmental occlusion or aneurysm. Anterior Communicating Artery: A joint proximal anterior cerebral artery splits into left and right branches distally along the frontal lobes, a normal variant. Posterior Communicating: Patent on the left, not seen on the right POSTERIOR CIRCULATION Right Vertebral Artery: Patent. No focal stenosis, segmental occlusion, dissection, or aneurysm. Left Vertebral Artery: Patent. No focal stenosis, segmental occlusion, dissection, or aneurysm. Basilar Artery: Patent. No focal stenosis, segmental occlusion, or aneurysm. Right Posterior Cerebral Artery: Patent. No focal stenosis, segmental occlusion, dissection, or aneurysm. Left Posterior Cerebral Artery: Patent. No focal stenosis, segmental occlusion, dissection, or aneurysm. Superior Cerebellar Arteries: Patent. AICAs: Not well seen. PICAs: Patent. CTA NECK: After 75 ml Isovue IV contrast, 1 mm axial cuts were obtained through the neck. Coronal and sagittal reconstructed images are reviewed. Additionally, 3-D reformats were performed by myself on a separate workstation. FINDINGS: AORTIC ARCH: Three-vessel. BRACHIOCEPHALIC ORIGIN AND RIGHT COMMON CAROTID ORIGIN: Patent without significant stenosis. RIGHT COMMON CAROTID ARTERY: Patent with no hemodynamically significant stenosis. RIGHT CAROTID BIFURCATION/PROX INT CAROTID ARTERY: Minimal atherosclerotic plaque with no significant stenosis by NASCET criteria. CERVICAL SEGMENT RIGHT CAROTID ARTERY: Patent with no hemodynamically significant stenosis. LEFT COMMON CAROTID: Patent with no hemodynamically significant stenosis. LEFT CAROTID BIFURCATION/PROX LEFT INT CAROTID: Minimal atherosclerotic plaque with no significant stenosis by NASCET criteria. CERVICAL SEGMENT LEFT INTERNAL CAROTID: Patent with no hemodynamically significant stenosis. RIGHT VERTEBRAL ARTERY:Patent with no hemodynamically significant stenosis or dissection. LEFT VERTEBRAL ARTERY:Patent with no hemodynamically significant stenosis or dissection. ACCESSORY STRUCTURES: The thyroid is normal. A few borderline enlarged left Computed Tomography Report cervical lymph nodes are seen. The airways are patent and the lung apices are clear. Minimal degenerative changes are seen throughout the cervical spine. COMBINED IMPRESSION: No flow-limiting stenosis, aneurysmal dilatation or occlusion is seen within the arteries of the head or neck. Report Dictated on Final Dictating Physician: MD GEORGE JAMES Signed Date and Time: 09/22/2020 1:44 pm Signed by: MD GEORGE JAMES Transcribed Date and Time: 09/22/2020 1:45 Normal [facility] Progress Noteon 12-26-2018 [employer] Authentication Interface Message Text Original consult- From Dr. Lind from [facility]. Follow Up Note: The patient was last seen [address] Talha Zapata in our allergy clinic for new evaluation of EoE and other. They come today with his mother who supplemented the history. The CC today is EoE The patient is a pleasant 18 y.o. man who comes today to discuss Severe uncontrolled EoE. At the last visit he was found to have required repeated EGD and dilations from Dr. Lind He has followed with Dr. Jose M Lind at [facility] from [facility]. In February 2017 he had such severe dysphagia that Dr. Lind could not do get a scope down and could not even do the biopsies to make the diagnosis. 03/2017- His official diagnosis was in March 2017- he had been treated with prednisone and swallowed budesonide which was mixed with caramel/ or honey and taken in actuality once per day- when he did it it was before breakfast just to get the scope down. After the official diagnosis he continued to use budesonide only once per day and it was before breakfast which he did not typically eat. Omeprazole AND Budesonide were both taken before breakfast. 04/2017- One month later he had a follow up EGD with strictures which were dilated to 10 mm and continued furrows and plaques. Constant stomach pains while on budesonide- maybe hungry. He felt the stomach pain was made worse by the budesonide. Then he stopped the budesonide and the stomach pain resolved. He was on the Flovent. Then when he started budesonide again and the pain came back immediately. Then three days later he had hematochezia. He switched to Flovent as he did not like the taste of the Budesonide after April. 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 Then the evening dose was after dinner before bed. 07/08/17- EGD with Repeat biopsy showed continued gross changes and another stricture. - Dilated to 8mm Bx- Eos of mid and distal at 50 range. After that he went to Flovent 220 mcg FOUR puffs BID since then. Then they went on vacation summer and his sister was diagnosed with type I diabetes. Because mom was dealing with that she was not able to monitor him as much. Therefore he was on NO treatment from December through March he was on nothing. During this time he was getting a dilation every 4 months or so to help continue to open things up. Last dilation was September of 2017- biopsy showed high continued Eosinophils. 2017- Then due to his sisters diabetes he had no dilation until 2017. While on no therapy- he took three biopsies and they were all positive for Eos but much lower. On EGD there were gross- Linear furrows were grossly visible throughout. Noted -Biopsies showed decreasing esophageal eosinophilia. Dr. Lidn assumed he was adherent with the therapy- but they told him he had not been on any therapy. (10 and 15 Eos/HPF noted in his office visit note. - He did tell them to restart the Flovent 4 puffs twice per day- after that he was the most consistent with use. 06/2018- Then he followed up in the End of June EGD while taking Flovent- showed over 50 / HPF- throat not looking good with the plaques again. So he talked about stopping meds and starting food elimination. July 2018- They started Milk only elimination which resulted in improvement and no progression of throat closing, and then September 2018?- a biopsy was done. The Gross appearance was better, he was able to dilate more, and it was the Dr. Lind had seen. - After that they were waiting for me to decide what to do next. During this time he is now eating milk again. Dr. Lind suggested no peanuts. Since then he has been back on milk because he wanted to eat it and the biopsies were discouraging. His understanding is that if he does food avoidance and it works it would need to be for the rest of his life. But he says in reality it will not be possible. His understanding about not treating at all- getting more strictures. Motivation for full food avoidance now- it is hard. Not fully committed. They have many cousins who are also having EoE- in 30s. They get dilations every few years. They are not as serious about treatment and setting an example for him. He saw Dr. Zapata two months ago with the intention of seeing me and now they come to talk about further treatment focusing on further food avoidance. During their initial visit they discussed a SFED. They do not feel that is feasible at this time. Allergies Allergen Reactions Omnicef [Cefdinir] Hives Other Anaphylaxis Tree nuts Current Outpatient Medications: EPINEPHrine (EPIPEN 2-SHERLY) 0.3 MG/0.3ML injection, Inject as directed to the anterior thigh as directed by symptoms in the allergy action plan. If used the patient must seek emergency medical care. May repeat a second dose after 5 minutes for failure to respond or worsening symptomatology while awaiting EMS. Dispensed to twin packs with trainers. Dispense generic Epipens., Disp: , Rfl: fluticasone (FLOVENT HFA) 220 MCG/ACT 220 mcg inhaler, 2 Puffs by Other route, Disp: , Rfl: fluticasone (FLONASE) 50 MCG/ACT nasal spray, 2 Sprays by Does not apply route, Disp: , Rfl: omeprazole (PRILOSEC) 40 MG capsule, Take 40 mg by mouth, Disp: , Rfl: EPINEPHrine 0.3 MG/0.3ML injection, Inject 0.3 mL (0.3 mg) into the muscle once as needed for Allergies, Disp: 4 Each, Rfl: 1 triamcinolone (KENALOG) 0.1 % cream, Apply to affected area 2 times daily as needed for Rash, Disp: 80 g, Rfl: 2 budesonide (PULMICORT) 0.5 MG/2ML nebulizer suspension, Take by mouth 2 times daily Rinse mouth after each use., Disp: , Rfl: hydrocodone-acetaminophen (VICODIN) 5-500 MG tablet, Take 1 Tab by mouth every 6 hours as needed for Pain. (Patient not taking: Reported on 10/21/2018), Disp: 20 Tab, Rfl: 0 levocetirizine (XYZAL) 5 MG tablet, Take by mouth nightly at bedtime. , Disp: , Rfl: mometasone (NASONEX) 50 MCG/ACT nasal spray, 1 Kendall by Each Nare route daily. , Disp: , Rfl: Rizatriptan Benzoate (MAXALT PO), Take by mouth Use as instructed. , Disp: , Rfl: albuterol (VENTOLIN) (2.5 MG/3ML) 0.083% nebulizer solution, Use 2.5 mg by nebulization every 4 hours as needed. , Disp: , Rfl: REVIEW OF SYSTEMS: GENERAL: No weight loss, malaise or fevers. Eyes- No conjunctivitis, drainage HENT: No pain, No sinusitis, no rhinorrhea, no congestion. RESPIRATORY: Negative for cough, wheezing or shortness of breath. No asthma, GANN, nocturnal cough, snoring. CARDIOVASCULAR: Negative for chest pain or leg swelling GI: Negative for abdominal pain or change in bowel habits, no n/v, d/c. SKIN: Negative for lesions, rash, and itching. No history of eczema, no dry skin, no urticaria NEURO: No headaches ALLERGY/IMMUNE- As above All other systems reviewed with pertinent positives and negatives as listed above. GEN- NAD HEENT- PERRL, No conjunctivitis or exudate, TM clear with no effusion or bulging NOSE- Mucosa normal, no congestion, no bleeding OP- Moist, no tonsillar enlargement or exudate, no sores NECK- No Cervical LAD LUNGS- CTA B/L, NO W/R/R CV- RR no M/R/G ABD- Soft, NT, NABS, no HSM EXT- No E/C/C SKIN- No rashes Assessment/Plan: The patient is a pleasant 18 y.o. man who has severe EoE with need for serial dilations to open up his esophagus from a very small level at first two years ago. Milk avoidance seemed to work to some degree, however, he is not committed to this diet. We discussed the correction prognosis and issues with under/untreated EoE. He has an understanding of what this means but is not really committed to diet. The largest issue is that with use of budesonide he had significant stomach pains, vomiting and even bloody, mucousy diarrhea which prompted them to stop. Flovent at significantly high doses did not work based on repeated biopsies. The lower numbers on one biopsy were most likely related to the patchy nature of the disease and did not represent any spontaneous remission while on no therapy. We had a long discussion with the patient and mom and came up with a plan: His understanding is that if he does food avoidance for the rest of his life. But he says in reality it will not be possible. His understanding about not treating at all- getting more strictures and possibly permanent stenosis- he mentioned feeding tube, and mom mentioned surgery with the stomach connecting! I did not emphasize this. Motivation for full food avoidance now- it is hard. Not fully committed. It is hard- I agree. Other options- Dupilumab? Dupilumab Maybe in trials for EoE and you could seek them out - and see if you can participate. Mom's Questions- Side effects from Dupilumab- not too worried about side effects with Dupilumab. Duodenal inflammation- celiac- testing is negative. Mom's friend is gluten sensitive but negative for celiac. - Do I see this- Yes, It is possible there is allergic inflammation due to wheat that is not celiac disease. Gastritis- he was noted to have gastritis during some scopes and this may be the only reason to stay on the PPI- Omeprazole (Antacid Prilosec). - I do not recommend Prilosec to be used for the EoE as it failed as well. The next food in line to avoid with most potential for benefit would be wheat. 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 Life cereal- when he was younger he would react to it- it caused an immediate weird feeling in his throat. It may be wheat, rice or corn which is what was in that cereal. Let me know if some foods besides Life Cereal are doing this. Decision today: Between Milk alone and wheat- he feels that he is willing to handle wheat avoidance only. You picked Wheat avoidance - to see if it is improved on wheat alone. You would like to meet with the mathematical technician. - Make that appointment today. Then he is avoiding wheat he would see if it is helpful or not. Then if the wheat helps today he said that he would be more motivated to do the milk AND wheat. He feels he would be able to start the wheat avoidance at the end of summer. Let me encourage you to ease into it and learn how to avoid it. He says he is not very comfortable to read the labels just because it is annoying. But other hare he feels comfortable doing it correctly. It would be wheat only. [place] would be fine, oats, rice are also fine. Ancient wheat- spelt is wheat. [place] is wheat- you need to avoid older forms of wheat as well. INFO on EOE: The main goal of treatment for Eosinophilic Esophagitis (EoE) is to treat the short term symptoms of trouble swallowing AND to prevent continued narrowing of the esophagus over the years. The best way to do this is food allergy avoidance. When it comes to foods that may cause Eosinophilic esophagitis the main foods to consider are milk, wheat, peanuts, tree nuts, soy, eggs mostly in that order. There may be others. In addition to foods environmental allergens like cat, dog, dust mites, and pollens have also been shown to contribute to the inflammation of EoE. There are two things to monitor for improvement with food elimination or medications. 1. Symptoms- Do you have less symptoms than before. 2. Inflammation- did the food avoidance or medications make the eosinophils decrease or disappear from the esophagus. Ways to Eliminate inflammation and Prevent symptoms Avoiding milk alone helps in about 35% of patients. Avoiding wheat alone helps prevent symptoms in approximately 26% of people. Avoiding milk and wheat- 50% Avoiding all allergenic foods including Milk, wheat, egg, soy, peanuts/tree nuts fish and shellfish improved around 75% of patients. Medications- Swallowed steroids work in most patients but may eventually stop working. They have not been shown to prevent continued damage to the esophagus. - Xanthum gum plus budesonide is still an option. - Lets get Budesonide started again- The Xanthum gum can be bought. Budesonide will be started at 0.5mg one respule Twice per day- Use after breakfast and after dinner with no eating or drinking for 1 hour after taking it. Recipe for Xanthum gum: 07/12 of a teaspoon (375mg) teaspoon xanthan gum powder mixed with 4 ml of 0.5 mg/2 ml nebulized budesonide solution, a flavoring packet of cold-pressed crystallized orange flavor (True OrangeTM, [place], [place], [place]), 1 mCi Tc99 sulfur colloid, and 5 ml distilled water for a total volume of approximately 10 ml Because of this I highly recommend using elimination diets as the number one treatment. This is what most experts in EoE also recommend. Education resources- Www.eosinophilicesophagit ishome.org, this can also be found at www.EOEHome.org [employer] ([employer]) www.APFED.org 1. Start budesonide twice per day- Call or My Chart with any side effects. 2. Start slowly avoiding wheat. 3. Schedule mathematical technician consult 4. See me back school health assistant- schedule today. 5. Sign up for My Chart. Follow up at end of summer. I spent 90 minutes with them with all issues new to me. Greater than 50% of the time was in counseling and coordination of care per avs. Jaskaran Cheema MD Allergy and Immunology [facility] CNOVon 10-21-2018 CNOV Office Visit (PDGS ) ----- LESLIE THOMAS ([id number]) 1 M Date Time Provider Department 10/21/18 4:00 PM JOSE M TALBOTPDGSHC During your visit today, we recorded the following information about you: Temperature Pulse Blood pressure Weight 98.6 degrees 60/minute 138/72 79.1 kg Height 1.785 m Jose M Lind MD 10/21/2018 5:40 PM Signed Prior Clinic Visit: 07/29/2018 Background History: Leslie Thomas is a 18 year old male being seen today in pediatric GI clinic secondary to issues with dysphagia secondary to EOE and esophageal stricture diagnosed in February 2017. He has an extensive history of environmental allergies, asthma and eczema. Given his PMH and worsening dysphagia, he underwent initial EGD with biopsy on 02/25/2017 which showed a stricture or ring about 15-17 cm from incisors and could not be intubated with Neoscope. Due to the safety concerns from anesthesiologist and lack of information on the length or etiology of this stricture, dilation was not done. Biopsies obtained from esophagus above the stricture showed features of EOE. Upper GI series were done on 03/15/2017 which showed 2 narrowing at:?the proximal esophagus and?at the mid esophagus. ?He was initially started on oral prednisolone which was gradually weaned and was recommended to start with swallowed budesonide. ? He had EGD on 04/29/2017 in OR which showed 2 esophageal strictures at the level of 15 cm and 25 cm from incisors. Both proximal and distal strictures were dilated to 10?mm using Quantum TTC (12*5.5) balloon dilator with visible mucosal disruption. Esophageal mucosa showed linear furrows and white plaques with biopsies consistent with EOE. He switched swallowed Flovent as he did not like the taste of swallowed budesonide. ? A subsequent EGD was performed in the OR on 07/08/17?showing again?Esophageal mucosa linear furrowing and white plaques and trachealization at proximal and mid esophagus with first stricture of esophagus noted at 15?cm from the incisors for which the neoscope was able to pass but the standard [id number] could not pass. This stricture?at 20 cm was dilated?with quantum TTC balloon 8 x 5.5 cm starting at 6 JOSHUA x 90 sec with subsequent dilations to maximum of 8 JOSHUA (8 mm) and then using the Quantum TTC 10 x 5.5 cm balloon to 9 mm and then 10 mm?x 60 sec each, then a second stricture was noted at 25 cm?from the incisors and subsequent dilation was performed using the Quantum TTC 12 x 5.5 cm balloon to 11 mm?x 60 seconds. All dilations showed mucosal disruption and fresh clotted blood with spontaneous resolution of bleeding in the areas after serial dilations. After completing the serial dilations the [id number] passed easily through the remaining esophagus without difficulty.?The remaining gastric mucosa was normal and the duodenal bulb showed mild erythema without ulceration or bleeding and the remaining duodenal mucosa was normal in appearance. Biopsies again showed eosinophils and mid and distal esophagus of ~50's in number. Leslie has since remained on Flovent 220 mcg 2 puffs BID which he has been adherent to over the last month after the recent EGD but he has not been as adherent to his PPI therapy with 40 mg qd taking on average 2-3 x per week. ? He had repeat EGD in September 2017 with the following findings: Esophageal stricture seen at 15 cm from incisors which was dilated with Quantum TTC balloon to 11 mm with visible mucosal disruptions. ?Another esophageal narrowing seen at 25 cm from incisors which was dilated to 12 mm with Quantum TTC balloon with visible mucosal disruptions. Linear furrows and white plaques with mucosal edema seen throughout the esophagus. Mild erythema seen in duodenal bulb. ?The gastric ?mucosa was?visually normal.??Biopsies showed significant eosinophilia with features of esophagitis and also focal active duodenitis. ?Because of the persistent esophageal eosinophilia with inflammation, recommended to switch to swallowed budesonide. ?However he developed abdominal pain with budesonide so his was switched back to Flovent. ??Also strongly recommended to be compliant with PPI. ? He had EGD on 03/22/2018 which showed Esophageal strictures?seen at 15 cm and 25 cm from incisors. Esophageal stricture at 15 cm was dilated with Quantum TTC balloon to 12?mm with visible mucosal disruptions. ?Another esophageal narrowing seen at 25 cm from incisors was dilated to 12 mm with Quantum TTC balloon with visible mucosal disruptions. Linear furrows seen throughout the esophagus. There was mild erythema at the duodenal bulb. Biopsies showed decreasing esophageal eosinophilia ? He had EGD on 06/30/2018 which showed Esophageal strictures?seen at 15 cm and 25 cm from incisors. Esophageal stricture at 15 cm was dilated with Quantum TTC balloon to 12?mm with visible mucosal disruptions. ?Another esophageal narrowing seen at 25 cm from incisors was dilated to 13?mm with Quantum TTC balloon with visible mucosal disruptions. Linear furrows seen throughout the esophagus. There was erythema at the duodenal bulb. Biopsies showed significant eosinophilia both in proximal and distal esophagus along with duodenitis. Since Flovent did not improve esophageal eosinophilia he would like to try food elimination so recommended to start avoiding milk during the last visit. He returns today for follow-up. Interval History: History provided by mother and patient. Since the last visit, he has been doing very well. No dysphagia or odynophagia reported. He did have chest pain after previous dilation for 2 weeks which resolved. No abdominal pain, nausea or vomiting reported. He has good appetite and energy levels. No weight loss reported. Bowel movements are once daily normal in consistency with no diarrhea or blood in stools. He continues to avoid milk intake. He was seen by allergy in [facility] who recommended 6 food elimination diet. Medications: Current Outpatient Medications on File Prior to Visit: fluticasone (FLOVENT HFA) 220 mcg/actuation inhaler 2 Puffs twice daily. Omeprazole (PRILOSEC) 40 mg capsule Take 1 capsule by mouth once daily. Open capsule and sprinkle granules on small amount of applesauce or pudding and swallow EPINEPHrine (EPIPEN 2-SHERLY) 0.3 mg/0.3 mL auto-injector Inject as directed to the anterior thigh as directed by symptoms in the allergy action plan. If used the patient must seek emergency medical care. May repeat a second dose after 5 minutes for failure to respond or worsening symptomatology while awaiting EMS. Dispensed to twin packs with trainers. Dispense generic Epipens. EPINEPHrine (AUVI-Q) 0.3 mg/0.3 mL auto-injector Inject to the anterior thigh as directed by signs and symptoms in the allergy action plan. If used the patient needs to seek emergency medical care. May repeat a second dose after 5 minutes for failure respond or worsening symptoms. Dispense 2 twin packs with trainers fluticasone (FLONASE) 50 mcg/actuation nasal spray Use 2 Sprays in each nostril once daily. Levocetirizine (XYZAL) 5 mg tablet Take 1 tablet by mouth once daily as needed (for itching, sneezing or runny nose. ). albuterol HFA (PROVENTIL HFA, VENTOLIN HFA) 90 mcg/actuation inhaler Inhale 2 Puffs as instructed every 4 hours as needed. Use with spacer. rizatriptan (MAXALT CARPET TILE LAYER) 5 mg disintegrating tablet For a severe migraine take 1 tablet by mouth. If no improvement in 2 hours may take a second tablet. May take 2 doses of Maxalt in one day, 4 doses and 2 consecutive days, no more than 8 doses per month. ondansetron orally disintegrating (ZOFRAN ODT) 4 mg disintegrating tablet One tablet po at the onset of a migraine headache. No current facility-administered medications on file prior to visit. Review Of Systems: Constitutional:- No significant change in weight, no fatigue. ENDO:- no diabetes or thyroid disease CVS:- No history of heart disease, No history of heart murmurs RESP:- no wheezing, frequent cough or shortness of breath GI:- See HPI NEURO:-Normal growth and development. :-negative for dysuria/micturition problems Integumentary:- Negative for lesions, rash, and itching. Musculoskeletal:- Negative for joint pains/edema Psychiatry:-anxiety Hematologic/Lymphatic:-No history of anemia, bruising, bleeding abnormalities. Allergic/Immunologic:-no hay fever or drug allergies Review of systems is otherwise unremarkable and normal. Past medical, family history, and surgical history: reviewed with no new additions noted. PAST MEDICAL HISTORY Diagnosis Date - Asthma - Bone tumor right leg - Eczema - Eosinophilic esophagitis - Esophageal stricture - Status post balloon dilatation of esophageal stricture PAST SURGICAL HISTORY Procedure Laterality Date - CIRCUMCISION,CLAMP,[place] N FAMILY HISTORY Problem Relation Age of Onset - Asthma Mother - other (hypothyroid) Mother - None Father - None Maternal Grandmother - None Maternal Grandfather - other (aneusym) Paternal Grandmother 40 - Cancer Paternal Grandfather Colon Physical Exam: Wt 79.1 kg (174 lb 6.1 oz) BMI 24.83 kg/m2 (80 %ile (Z= 0.85) based on CDC (Boys, 2-20 Years) [id number] data using vitals from 10/21/2018.), Ht 178.5 cm (5' 10.28") BMI 24.83 kg/m2, Body mass index is 24.83 kg/m?. (78 %ile (Z= 0.77) based on CDC (Boys, 2-20 Years) BMI-for-age based on BMI available as of 10/21/2018.) General/Constitutional:- alert and active in no apparent distress Head:- Normocephalic Eye:- PERRLA, conjunctiva clear, no icterus Oropharynx:- moist mucous membranes, tonsils without hypertrophy and no exudates present Neck/Lymphatic:- supple, no adenopathy Cardiac:- Regular Rate and Rhythm without murmurs or clicks Respiratory:- clear to auscultation Gastrointestinal:- Abdomen is soft, non-tender; BS normal, there are no masses or organomegaly and there are no abdominal or flank bruits noted on auscultation Rectal :- deferred exam Skin:-normal color, no jaundice or rash Labs/Radiology: No recent labs or imaging for review Impression: Leslie Thomas is a 18 year old male being seen today in pediatric GI clinic secondary to issues with dysphagia secondary to EOE and esophageal stricture diagnosed in February 2017. He has an extensive history of environmental allergies, asthma and eczema.??He is currently being managed on Flovent 220 mcg 4 puffs twice daily. ?His esophageal strictures are?at 15 and 25 cm from incisors status post balloon dilation ?5 with the last dilation in June 2018. ?His biopsies have been consistently showing significant esophageal eosinophilia including recent biopsies. Due to persistent esophageal eosinophilia with Flovent, he stopped Flovent and started avoiding milk. He was also seen by allergy today in [facility] who recommended 6 food elimination diet. He has been doing well since the last visit with no dysphagia or odynophagia. Although 6 food elimination would be a good option, this involves frequent endoscopies about every 2 months which might be difficult especially in setting of esophageal strictures. In addition, I'm also worried about compliance. On the other hand, we can decide on food elimination based on biopsies which are done for the purpose of stricture dilations. We will continue to do serial esophageal dilations every 6 months or sooner if needed. Plan: 1. Continue avoiding milk intake 2. EGD with biopsy and dilation scheduled on Wednesday. Procedure explained and IC obtained 3. Will communicate with Dr. Levi Cheema after scope (Office no: [phone]) 4. Follow up in late March or April 2019 5. Repeat EGD in April or May I spent 40 minutes with greater than 50% of the time coordinating care and counseling the patient as detailed in my impression and recommendations. Jose M Lind MD Pediatric Gastroenterology Staff October 21, 2018 4:18 PM Pager Number [phone] CC: Chioma Maldonado MD [address] [facility] [id number] Jose M Lind MD 10/21/2018 4:47 PM Signed 1. Continue avoiding milk intake 2. Scope on Wednesday 3. Will communicate with after scope 4. Follow up in late March or April 5. Repeat scope in April or May Referring Provider: SELF [[id number]] Allergies As of Date: 10/21/2018 Noted Allergy Reaction OTHER OMEGA-3S 02/09/2012 10 - Anaphylaxis Comments: Tree nuts Environmental [Other] 11/04/2010 14 - Other: See Comments Comments: Cats Cockroach dustmites molds (September through May) trees (September, October and November) grasses (November and December) weeds (February, March and April) NUT - UNSPECIFIED 03/22/2018 10 - Anaphylaxis OMNICEF (CEFDINIR) 11/04/2010 4 - Hives tree nuts [Other] 11/04/2010 10 - Anaphylaxis Comments: Throat swells up Date Reviewed: 10/21/2018 Reviewed by: Fartun Araujo LPN - Fully Assessed Reason for Visit: Pre-Op Exam [87] Primary Visit Diagnosis:EE (eosinophilic esophagitis) [K20.0] Other Visit Diagnoses:Esophageal dysphagia [R13.10] Esophageal stricture [K22.2] Abdominal pain, unspecified abdominal location [R10.9] Prescriptions as of 10/21/2018 Sig: FLUTICASONE PROPIONATE 220 MC* 2 Puffs twice daily. OMEPRAZOLE 40 MG CAPSULE,BENNETT* Take 1 capsule by mouth once * EPINEPHRINE 0.3 MG/0.3 ML INJ* Inject as directed to the ant* EPINEPHRINE 0.3 MG/0.3 ML INJ* Inject to the anterior thigh * FLUTICASONE PROPIONATE 50 MCG* Use 2 Sprays in each nostril * LEVOCETIRIZINE 5 MG TABLET Take 1 tablet by mouth once d* ALBUTEROL SULFATE HFA 90 MCG/* Inhale 2 Puffs as instructed * RIZATRIPTAN 5 MG DISINTEGRATI* For a severe migraine take 1 * ONDANSETRON 4 MG DISINTEGRATI* One tablet po at the onset of* Problem List As Of Date 10/21/2018 Noted Resolved Asthma, intermittent [J45.20] INVALID FOR* Migraine [G43.909] INVALID FOR* Allergic rhinitis, cause unspecified [J30.9] INVALID FOR* Other atopic dermatitis and related conditions *INVALID FOR* 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 Episodic tension-type headache, not intractable*INVALID FOR* FH: aneurysm [Z82.49] INVALID FOR* Esophageal dysphagia [R13.10] INVALID FOR* Abdominal pain [R10.9] INVALID FOR* Eosinophilic esophagitis [K20.0] INVALID FOR* Esophageal stricture [K22.2] INVALID FOR* Dysphagia [R13.10] INVALID FOR* More... EE (eosinophilic esophagitis) [K20.0] INVALID FOR* More... Other instructions from your clinician: 1. Continue avoiding milk intake 2. Scope on Wednesday 3. Will communicate with after scope 4. Follow up in late March or April 5. Repeat scope in April or May Encounter Status:Closed by JOSE M TALBOT MD on 10/21/18 [facility] PROGRESSon 10-21-2018 Protein mass conc HNO ID: [id number] Author: Jose M Lind Service: ? Author Type: Physician Type: Progress Notes Filed: 10/21/2018 5:40 PM Note Text: Prior Clinic Visit: 07/29/2018 Background History: Leslie Thomas is a 18 year old male being seen today in pediatric GI clinic secondary to issues with dysphagia secondary to EOE and esophageal stricture diagnosed in February 2017. He has an extensive history of environmental allergies, asthma and eczema. Given his PMH and worsening dysphagia, he underwent initial EGD with biopsy on 02/25/2017 which showed a stricture or ring about 15-17 cm from incisors and could not be intubated with Neoscope. Due to the safety concerns from anesthesiologist and lack of information on the length or etiology of this stricture, dilation was not done. Biopsies obtained from esophagus above the stricture showed features of EOE. Upper GI series were done on 03/15/2017 which showed 2 narrowing at:?the proximal esophagus and?at the mid esophagus. ?He was initially started on oral prednisolone which was gradually weaned and was recommended to start with swallowed budesonide. ? He had EGD on 04/29/2017 in OR which showed 2 esophageal strictures at the level of 15 cm and 25 cm from incisors. Both proximal and distal strictures were dilated to 10?mm using Quantum TTC (12*5.5) balloon dilator with visible mucosal disruption. Esophageal mucosa showed linear furrows and white plaques with biopsies consistent with EOE. He switched swallowed Flovent as he did not like the taste of swallowed budesonide. ? A subsequent EGD was performed in the OR on 07/08/17?showing again?Esophageal mucosa linear furrowing and white plaques and trachealization at proximal and mid esophagus with first stricture of esophagus noted at 15?cm from the incisors for which the neoscope was able to pass but the standard [id number] could not pass. This stricture?at 20 cm was dilated?with quantum TTC balloon 8 x 5.5 cm starting at 6 JOSHUA x 90 sec with subsequent dilations to maximum of 8 JOSHUA (8 mm) and then using the Quantum TTC 10 x 5.5 cm balloon to 9 mm and then 10 mm?x 60 sec each, then a second stricture was noted at 25 cm?from the incisors and subsequent dilation was performed using the Quantum TTC 12 x 5.5 cm balloon to 11 mm?x 60 seconds. All dilations showed mucosal disruption and fresh clotted blood with spontaneous resolution of bleeding in the areas after serial dilations. After completing the serial dilations the [id number] passed easily through the remaining esophagus without difficulty.?The remaining gastric mucosa was normal and the duodenal bulb showed mild erythema without ulceration or bleeding and the remaining duodenal mucosa was normal in appearance. Biopsies again showed eosinophils and mid and distal esophagus of ~50's in number. Leslie has since remained on Flovent 220 mcg 2 puffs BID which he has been adherent to over the last month after the recent EGD but he has not been as adherent to his PPI therapy with 40 mg qd taking on average 2-3 x per week. ? He had repeat EGD in September 2017 with the following findings: Esophageal stricture seen at 15 cm from incisors which was dilated with Quantum TTC balloon to 11 mm with visible mucosal disruptions. ?Another esophageal narrowing seen at 25 cm from incisors which was dilated to 12 mm with Quantum TTC balloon with visible mucosal disruptions. Linear furrows and white plaques with mucosal edema seen throughout the esophagus. Mild erythema seen in duodenal bulb. ?The gastric ?mucosa was?visually normal.??Biopsies showed significant eosinophilia with features of esophagitis and also focal active duodenitis. ?Because of the persistent esophageal eosinophilia with inflammation, recommended to switch to swallowed budesonide. ?However he developed abdominal pain with budesonide so his was switched back to Flovent. ??Also strongly recommended to be compliant with PPI. ? He had EGD on 03/22/2018 which showed Esophageal strictures?seen at 15 cm and 25 cm from incisors. Esophageal stricture at 15 cm was dilated with Quantum TTC balloon to 12?mm with visible mucosal disruptions. ?Another esophageal narrowing seen at 25 cm from incisors was dilated to 12 mm with Quantum TTC balloon with visible mucosal disruptions. Linear furrows seen throughout the esophagus. There was mild erythema at the duodenal bulb. Biopsies showed decreasing esophageal eosinophilia ? He had EGD on 06/30/2018 which showed Esophageal strictures?seen at 15 cm and 25 cm from incisors. Esophageal stricture at 15 cm was dilated with Quantum TTC balloon to 12?mm with visible mucosal disruptions. ?Another esophageal narrowing seen at 25 cm from incisors was dilated to 13?mm with Quantum TTC balloon with visible mucosal disruptions. Linear furrows seen throughout the esophagus. There was erythema at the duodenal bulb. Biopsies showed significant eosinophilia both in proximal and distal esophagus along with duodenitis. Since Flovent did not improve esophageal eosinophilia he would like to try food elimination so recommended to start avoiding milk during the last visit. He returns today for follow-up. Interval History: History provided by mother and patient. Since the last visit, he has been doing very well. No dysphagia or odynophagia reported. He did have chest pain after previous dilation for 2 weeks which resolved. No abdominal pain, nausea or vomiting reported. He has good appetite and energy levels. No weight loss reported. Bowel movements are once daily normal in consistency with no diarrhea or blood in stools. He continues to avoid milk intake. He was seen by allergy in [facility] who recommended 6 food elimination diet. Medications: Current Outpatient Medications on File Prior to Visit: fluticasone (FLOVENT HFA) 220 mcg/actuation inhaler 2 Puffs twice daily. Omeprazole (PRILOSEC) 40 mg capsule Take 1 capsule by mouth once daily. Open capsule and sprinkle granules on small amount of applesauce or pudding and swallow EPINEPHrine (EPIPEN 2-SHERLY) 0.3 mg/0.3 mL auto-injector Inject as directed to the anterior thigh as directed by symptoms in the allergy action plan. If used the patient must seek emergency medical care. May repeat a second dose after 5 minutes for failure to respond or worsening symptomatology while awaiting EMS. Dispensed to twin packs with trainers. Dispense generic Epipens. EPINEPHrine (AUVI-Q) 0.3 mg/0.3 mL auto-injector Inject to the anterior thigh as directed by signs and symptoms in the allergy action plan. If used the patient needs to seek emergency medical care. May repeat a second dose after 5 minutes for failure respond or worsening symptoms. Dispense 2 twin packs with trainers fluticasone (FLONASE) 50 mcg/actuation nasal spray Use 2 Sprays in each nostril once daily. Levocetirizine (XYZAL) 5 mg tablet Take 1 tablet by mouth once daily as needed (for itching, sneezing or runny nose. ). albuterol HFA (PROVENTIL HFA, VENTOLIN HFA) 90 mcg/actuation inhaler Inhale 2 Puffs as instructed every 4 hours as needed. Use with spacer. rizatriptan (MAXALT CARPET TILE LAYER) 5 mg disintegrating tablet For a severe migraine take 1 tablet by mouth. If no improvement in 2 hours may take a second tablet. May take 2 doses of Maxalt in one day, 4 doses and 2 consecutive days, no more than 8 doses per month. ondansetron orally disintegrating (ZOFRAN ODT) 4 mg disintegrating tablet One tablet po at the onset of a migraine headache. No current facility-administered medications on file prior to visit. Review Of Systems: Constitutional:- No significant change in weight, no fatigue. ENDO:- no diabetes or thyroid disease CVS:- No history of heart disease, No history of heart murmurs RESP:- no wheezing, frequent cough or shortness of breath GI:- See HPI NEURO:-Normal growth and development. :-negative for dysuria/micturition problems Integumentary:- Negative for lesions, rash, and itching. Musculoskeletal:- Negative for joint pains/edema Psychiatry:-anxiety Hematologic/Lymphatic:-No history of anemia, bruising, bleeding abnormalities. Allergic/Immunologic:-no hay fever or drug allergies Review of systems is otherwise unremarkable and normal. Past medical, family history, and surgical history: reviewed with no new additions noted. PAST MEDICAL HISTORY Diagnosis Date - Asthma - Bone tumor right leg - Eczema - Eosinophilic esophagitis - Esophageal stricture - Status post balloon dilatation of esophageal stricture PAST SURGICAL HISTORY Procedure Laterality Date - CIRCUMCISION,CLAMP,NEWBOR N FAMILY HISTORY Problem Relation Age of Onset - Asthma Mother - other (hypothyroid) Mother - None Father - None Maternal Grandmother - None Maternal Grandfather - other (aneusym) Paternal Grandmother 40 - Cancer Paternal Grandfather Colon Physical Exam: Wt 79.1 kg (174 lb 6.1 oz) BMI 24.83 kg/m2 (80 %ile (Z= 0.85) based on CDC (Boys, 2-20 Years) [id number] data using vitals from 10/21/2018.), Ht 178.5 cm (5' 10.28") BMI 24.83 kg/m2, Body mass index is 24.83 kg/m?. (78 %ile (Z= 0.77) based on CDC (Boys, 2-20 Years) BMI-for-age based on BMI available as of 10/21/2018.) General/Constitutional:- alert and active in no apparent distress Head:- Normocephalic Eye:- PERRLA, conjunctiva clear, no icterus Oropharynx:- moist mucous membranes, tonsils without hypertrophy and no exudates present Neck/Lymphatic:- supple, no adenopathy Cardiac:- Regular Rate and Rhythm without murmurs or clicks Respiratory:- clear to auscultation Gastrointestinal:- Abdomen is soft, non-tender; BS normal, there are no masses or organomegaly and there are no abdominal or flank bruits noted on auscultation Rectal :- deferred exam Skin:-normal color, no jaundice or rash Labs/Radiology: No recent labs or imaging for review Impression: Leslie Thomas is a 18 year old male being seen today in pediatric GI clinic secondary to issues with dysphagia secondary to EOE and esophageal stricture diagnosed in February 2017. He has an extensive history of environmental allergies, asthma and eczema.??He is currently being managed on Flovent 220 mcg 4 puffs twice daily. ?His esophageal strictures are?at 15 and 25 cm from incisors status post balloon dilation ?5 with the last dilation in June 2018. ?His biopsies have been consistently showing significant esophageal eosinophilia including recent biopsies. Due to persistent esophageal eosinophilia with Flovent, he stopped Flovent and started avoiding milk. He was also seen by allergy today in [facility] who recommended 6 food elimination diet. He has been doing well since the last visit with no dysphagia or odynophagia. Although 6 food elimination would be a good option, this involves frequent endoscopies about every 2 months which might be difficult especially in setting of esophageal strictures. In addition, I'm also worried about compliance. On the other hand, we can decide on food elimination based on biopsies which are done for the purpose of stricture dilations. We will continue to do serial esophageal dilations every 6 months or sooner if needed. Plan: 1. Continue avoiding milk intake 2. EGD with biopsy and dilation scheduled on Wednesday. Procedure explained and IC obtained 3. Will communicate with Dr. Levi Cheema after scope (Office no: [phone]) 4. Follow up in late March or April 2019 5. Repeat EGD in April or May I spent 40 minutes with greater than 50% of the time coordinating care and counseling the patient as detailed in my impression and recommendations. Jose M Lind MD Pediatric Gastroenterology Staff October 21, 2018 4:18 PM Pager Number [phone] CC: Chioma Maldonado MD [address] [place] [address] Normal [facility] Progress Noteon 10-21-2018 [employer]er Authentication Interface Message Text Chief Complaint Patient presents with Eosinophilic Esophagitis Leslie Thomas HPI: EoE dx 2017, had 2 stricture. Did have dilation. Still gets now every 3 months or so. Initially dysphagia, choking episodes, borderline food impaction, food phobia meats but would still try, prolong chewer. Might all started 4-5 yrs ago. But mom feels even as toddler had GERD and emesis hindsight. Better with dilations, not back to a normal. Tried flvoent and pulmicort, suboptimal. pulmicort might have caused GI cramping, hematochezia, suspect LGI bleed. Repeat scope show >50 eos phf Stricture remains despite therapy Did treat with pred, helped, but martino. Pt feels odd throat tightness with wheat. ?lactose from milk, cramping, diarrhea, but no upper GI referred sx. Tree nuts allergy confirmed - throat swelling, confirmed by RAST Can eat peanut, eggs, wheat (still eats), can eat meats, can eat fruits. Can do seafood. Eczema worse as toddler, now residual antecub, still active more in spring. Nasal congestion, runny, sneezy at times, can be year round, warm weather months notable. Itchy eye also. Albuterol use max 4-6x/yr, mainly cold weather exercise, chest tight, cough, wheeze, not SOB. Will still continue exercise. Early grade school URI in chest. Never a hospital, no pred. Past Medical History: Diagnosis Date Asthma -- EOE -- ortho issue, neck fx in baseball -- no DM, no seizures No past surgical history on file. PSHx: Meatal stenosis FMHx: allergy SocHx: Senior, will go to [employer], dog, non smoker ROS: See HPI Review of Systems: Constitution: Negative. Respiratory: Negative. Cardiovascular: Negative. HENT: Negative. Musculoskeletal: Negative. Gastrointestinal: Negative. Neurological: Negative for light-headedness. Skin: Negative. Allergies Allergen Reactions Omnicef [Cefdinir] Hives Other Anaphylaxis Tree nuts Vitals: 10/21/18 1247 BP: 130/63 Pulse: 81 Physical Exam: NAD, alert Conjunctiva clear Nasal turbinates pale TM's R clear, L clear Mouth clear Throat clear No cervical lymphadenopathy Heart RRR, noMRG Lungs CTA Abd benign Skin eczema antecubs ASSESSMENT: 1. Eosinophilic esophagitis 2. Allergy to food 3. Atopic dermatitis, unspecified type 4. Allergic rhinitis, unspecified seasonality, unspecified trigger 5. Exercise induced bronchospasm Counseling and/or coordination of care (face to face time in the office/outpatient setting or floor/unit time in the hospital) was greater than 25 minutes which is more than 50% of the total time of 45 minutes spent on the encounter. PLAN & Instructions given to patient/family: Skin test foods: Positive: remarkably none negative: beef, ponce, pork, turkey, chicken, corn, carrot, tomato, pea, martin, squash, potato, milk, egg, wheat, peanut, cod, shrimp, soy, apple, banana, peach, pear, barley, oat, rice, rye Continue milk/dairy avoidance ---> GI dept to evaluate this intervention I favor SFED (avoiding milk, egg, wheat, soy protein, peanuts/tree nuts, seafood) --- this is a consideration --- Angela Cartwright our mathematical technician can help, let us know what you think Medications per [facility] GI dept AVOID all tree nuts (almonds, cashew, pistachio, hazelnut, walnut, pecan, etc . . . ) ---> "real" food allergy --- maintain EpiPens 1. flonase / fluticasone - 1 each nostril once a day everyday late September thru end of Mar 2. Xyzal 5mg OTC - 1 pill taken once a day, can be daily or used as needed (check [email or web address] for coupons) 3. zaditor / alaway / ketotifen fumorate OTC - 1 drop each eye upto 2x per day as needed 4. Albuterol/Proair/Ventolin - 2 puffs upto 4x per day only as needed for rescue use [ for increased coughing, wheezing, shortness of breath ] 5. triamcinolone - Apply to active rash - use 2x per day for upto 4 days in a row, hold for 3 days in a row, then repeat cycle as necessary [ not for face/neck ]. [facility] CNCOon 07-29-2018 CNCO Letter Text [facility] [address] [place] [address] July 29, 2018 RE: Leslie Thomas To Whom it May Concern: This is to confirm that the above patient was seen on 07/29/18. Leslie is able to return to school Wednesday . Thank you for your cooperation in this matter. Sincerely, Dr. Jose M Lind MD [facility] CNOVon 07-29-2018 CNOV Office Visit ([facility] ) ----- LESLIE THOMAS ([id number]) 18/[birth year] M Date Time Provider Department 07/29/18 11:00 AM JOSE M TALBOTPDGS During your visit today, we recorded the following information about you: Pulse Blood pressure Weight Height 55/minute 122/64 77.7 kg 1.8 m Jose M Lind MD 08/04/2018 10:29 AM Signed Prior Clinic Visit: 06/06/2018 Background History: Leslie Thomas is a 18 year old male being seen today in pediatric GI clinic secondary to issues with Leslie Thomas is a 18 year old male being seen today in pediatric GI clinic secondary to issues with dysphagia secondary to EOE and esophageal stricture diagnosed in February 2017. He has an extensive history of environmental allergies, asthma and eczema. Given his PMH and worsening dysphagia, he underwent initial EGD with biopsy on 02/25/2017 which showed a stricture or ring about 15-17 cm from incisors and could not be intubated with Neoscope. Due to the safety concerns from anesthesiologist and lack of information on the length or etiology of this stricture, dilation was not done. Biopsies obtained from esophagus above the stricture showed features of EOE. Upper GI series were done on 03/15/2017 which showed 2 narrowing at:?the proximal esophagus and?at the mid esophagus. ?He was initially started on oral prednisolone which was gradually weaned and was recommended to start with swallowed budesonide. He had EGD on 04/29/2017 in OR which showed 2 esophageal strictures at the level of 15 cm and 25 cm from incisors. Both proximal and distal strictures were dilated to 10?mm using Quantum TTC (12*5.5) balloon dilator with visible mucosal disruption. Esophageal mucosa showed linear furrows and white plaques with biopsies consistent with EOE. He switched swallowed Flovent as he did not like the taste of swallowed budesonide. ? A subsequent EGD was performed in the OR on 07/08/17?showing again?Esophageal mucosa linear furrowing and white plaques and trachealization at proximal and mid esophagus with first stricture of esophagus noted at 15?cm from the incisors for which the neoscope was able to pass but the standard [id number] could not pass. This stricture?at 20 cm was dilated?with quantum TTC balloon 8 x 5.5 cm starting at 6 JOSHUA x 90 sec with subsequent dilations to maximum of 8 JOSHUA (8 mm) and then using the Quantum TTC 10 x 5.5 cm balloon to 9 mm and then 10 mm?x 60 sec each, then a second stricture was noted at 25 cm?from the incisors and subsequent dilation was performed using the Quantum TTC 12 x 5.5 cm balloon to 11 mm?x 60 seconds. All dilations showed mucosal disruption and fresh clotted blood with spontaneous resolution of bleeding in the areas after serial dilations. After completing the serial dilations the [id number] passed easily through the remaining esophagus without difficulty.?The remaining gastric mucosa was normal and the duodenal bulb showed mild erythema without ulceration or bleeding and the remaining duodenal mucosa was normal in appearance. Biopsies again showed eosinophils and mid and distal esophagus of ~50's in number. Leslie has since remained on Flovent 220 mcg 2 puffs BID which he has been adherent to over the last month after the recent EGD but he has not been as adherent to his PPI therapy with 40 mg qd taking on average 2-3 x per week. ? He had repeat EGD in September 2017 with the following findings: Esophageal stricture seen at 15 cm from incisors which was dilated with Quantum TTC balloon to 11 mm with visible mucosal disruptions. ?Another esophageal narrowing seen at 25 cm from incisors which was dilated to 12 mm with Quantum TTC balloon with visible mucosal disruptions. Linear furrows and white plaques with mucosal edema seen throughout the esophagus. Mild erythema seen in duodenal bulb. ?The gastric ?mucosa was?visually normal.??Biopsies showed significant eosinophilia with features of esophagitis and also focal active duodenitis. ?Because of the persistent esophageal eosinophilia with inflammation, recommended to switch to swallowed budesonide. ?However he developed abdominal pain with budesonide so his was switched back to Flovent. ??Also strongly recommended to be compliant with PPI. ? He had EGD on 03/22/2018 which showed Esophageal strictures?seen at 15 cm and 25 cm from incisors. Esophageal stricture at 15 cm was dilated with Quantum TTC balloon to 12?mm with visible mucosal disruptions. ?Another esophageal narrowing seen at 25 cm from incisors was dilated to 12 mm with Quantum TTC balloon with visible mucosal disruptions. Linear furrows seen throughout the esophagus. There was mild erythema at the duodenal bulb. Biopsies showed decreasing esophageal eosinophilia He had EGD on 06/30/2018 which showed Esophageal strictures?seen at 15 cm and 25 cm from incisors. Esophageal stricture at 15 cm was dilated with Quantum TTC balloon to 12?mm with visible mucosal disruptions. ?Another esophageal narrowing seen at 25 cm from incisors was dilated to 13 mm with Quantum TTC balloon with visible mucosal disruptions. Linear furrows seen throughout the esophagus. There was erythema at the duodenal bulb. Biopsies showed significant eosinophilia both in proximal and distal esophagus along with duodenitis. Interval History: History provided by mother and patient. Since the last visit, he has been doing well. He did have mild chest pain after dilation which resolved in 1 week. No abdominal pain, nausea or vomiting reported. No dysphagia with both solids and liquids. No food impaction or vomiting reported. Bowel movements are once daily, normal in consistency with no diarrhea or blood in stools. He has been compliant with his medications. He expresses interest in elimination diet for EOE. Medications: Current Outpatient Prescriptions on File Prior to Visit: fluticasone (FLOVENT HFA) 220 mcg/actuation inhaler 2 Puffs twice daily. Omeprazole (PRILOSEC) 40 mg capsule Take 1 capsule by mouth once daily. Open capsule and sprinkle granules on small amount of applesauce or pudding and swallow EPINEPHrine (EPIPEN 2-SHERLY) 0.3 mg/0.3 mL auto-injector Inject as directed to the anterior thigh as directed by symptoms in the allergy action plan. If used the patient must seek emergency medical care. May repeat a second dose after 5 minutes for failure to respond or worsening symptomatology while awaiting EMS. Dispensed to twin packs with trainers. Dispense generic Epipens. EPINEPHrine (AUVI-Q) 0.3 mg/0.3 mL auto-injector Inject to the anterior thigh as directed by signs and symptoms in the allergy action plan. If used the patient needs to seek emergency medical care. May repeat a second dose after 5 minutes for failure respond or worsening symptoms. Dispense 2 twin packs with trainers fluticasone (FLONASE) 50 mcg/actuation nasal spray Use 2 Sprays in each nostril once daily. Levocetirizine (XYZAL) 5 mg tablet Take 1 tablet by mouth once daily as needed (for itching, sneezing or runny nose. ). albuterol HFA (PROVENTIL HFA, VENTOLIN HFA) 90 mcg/actuation inhaler Inhale 2 Puffs as instructed every 4 hours as needed. Use with spacer. rizatriptan (MAXALT CARPET TILE LAYER) 5 mg disintegrating tablet For a severe migraine take 1 tablet by mouth. If no improvement in 2 hours may take a second tablet. May take 2 doses of Maxalt in one day, 4 doses and 2 consecutive days, no more than 8 doses per month. ondansetron orally disintegrating (ZOFRAN ODT) 4 mg disintegrating tablet One tablet po at the onset of a migraine headache. No current facility-administered medications on file prior to visit. Review Of Systems: Constitutional:- No significant change in weight, no fatigue. ENDO:- no diabetes or thyroid disease CVS:- No history of heart disease, No history of heart murmurs RESP:- no wheezing, frequent cough or shortness of breath GI:- See HPI NEURO:-Normal growth and development. :-negative for dysuria/micturition problems Integumentary:- Negative for lesions, rash, and itching. Musculoskeletal:- Negative for joint pains/edema Psychiatry:-anxiety Hematologic/Lymphatic:-No history of anemia, bruising, bleeding abnormalities. Allergic/Immunologic:-no hay fever or drug allergies Review of systems is otherwise unremarkable and normal. Past medical, family history, and surgical history: reviewed with no new additions noted. PAST MEDICAL HISTORY Diagnosis Date - Asthma - Bone tumor right leg - Eczema - Eosinophilic esophagitis - Esophageal stricture - Status post balloon dilatation of esophageal stricture PAST SURGICAL HISTORY Procedure Laterality Date - CIRCUMCISION,CLAMP,NEWBOR N FAMILY HISTORY Problem Relation Age of Onset - Asthma Mother - other (hypothyroid) Mother - None Father - None Maternal Grandmother - None Maternal Grandfather - other (aneusym) Paternal Grandmother 40 - Cancer Paternal Grandfather Colon Physical Exam: BP 122/64 Pulse 55 Ht 5' 10.866" (1.80m) Wt 171 lb 4.8 oz (77.7kg) BMI 23.98 kg/(m2). General/Constitutional:- alert and active in no apparent distress Head:- Normocephalic Eye:- PERRLA, conjunctiva clear, no icterus Oropharynx:- moist mucous membranes, tonsils without hypertrophy and no exudates present Neck/Lymphatic:- supple, no adenopathy Cardiac:- Regular Rate and Rhythm without murmurs or clicks Respiratory:- clear to auscultation Gastrointestinal:- Abdomen is soft, non-tender; BS normal, there are no masses or organomegaly and there are no abdominal or flank bruits noted on auscultation Rectal :- deferred exam Skin:-normal color, no jaundice or rash Labs/Radiology: EGD with biopsy 06/30/2018 FINAL DIAGNOSIS 1. Duodenum, bulb, biopsy (A) - Duodenal mucosa with mild reactive epithelial changes and a minimal patchy increase in intraepithelial lymphocytes with intact villous architecture. - See comment. 2. Esophagus, distal, biopsy (B) - Squamous mucosa with eosinophilic esophagitis pattern of injury with reactive epithelial changes and prominent increase in intraepithelial eosinophils (focally greater than 50 eosinophiles per high power field). 3. Esophagus, proximal, biopsy (C) - Ulcerated fragments of squamous mucosa with eosinophilic esophagitis pattern of injury with reactive epithelial changes and patchy increase in intraepithelial eosinophils (focally greater than 50 eosinophiles per high power field). NUHA/moises/07/01/18 ? ? COMMENT 1. Intraepithelial lymphocytosis is etiologically nonspecific and can be associated with celiac disease, gluten-resistant sprue (so-called "Refractory Sprue" and tropical sprue), H. Pylori gastritis, various viral infections (including cytomegalovirus), Crohn's Disease, drugs/medication, bacterial overgrowth, slow bowel transit and microscopic (lymphocytic and collagenous) colitis, among others. Correlation with pertinent clinical and laboratory features is suggested. Impression: Leslie Thomas is a 18 year old male being seen today in pediatric GI clinic secondary to issues with dysphagia secondary to EOE and esophageal stricture diagnosed in February 2017. He has an extensive history of environmental allergies, asthma and eczema.??He is currently being managed on Flovent 220 mcg 4 puffs twice daily. ?His esophageal strictures are?at 15 and 25 cm from incisors status post balloon dilation ?5 with the last dilation in June 2018. ?His biopsies have been consistently showing significant esophageal eosinophilia including recent biopsies. There have been issues with medication compliance in the past however he reports full compliance with medications now. He has been doing well with no dysphagia after dilation. He is well appearing on examination today. He will like to try elimination diet for EOE since Flovent did not improve eosinophilia and/or like to stop Flovent. He reports restricting milk intake during one of the upper endoscopies which showed decreased esophageal eosinophilia. So recommended to start milk elimination diet for now and recommended referral to allergy for elimination diet for EOE. We'll continue to repeat EGD with dilation every 4 months since he becomes symptomatic around 3-4 months. Plan: 1. Can Stop Flovent for now 2. Milk-free diet 3. Start Omeprazole 40 mg once daily 30 minutes before break fast 4. Allergy consult for elimination diet 5. EGD with dilation in October 2018 6. Follow up in September 2018 Office Visit on 07/29/18 -IGA BLD -ENDOMYSIAL IGA AB -TRANSGLUTAMINASE IGA -TRANSGLUTAMINASE IGG -GLIADIN (DEAMINATED) ABS -CONSULT TO PED ALLERGY CLINIC -SURGICAL REQUEST - ELECTIVE I spent 40 minutes with greater than 50% of the time coordinating care and counseling the patient as detailed in my impression and recommendations. Jose M Lind MD Pediatric Gastroenterology Staff July 29, 2018 10:31 AM Pager Number [phone] CC: Chioma Maldonado MD [address] [facility] [id number] Jose M Lind MD 07/29/2018 12:15 PM Signed 1. Stop Flovent for now 2. Milk-free diet 3. Start Omeprazole 40 mg once daily 30 minutes before break fast 4. Allergy consult - Dr. Cheema 5. EGD with dilation in October 2018 6. Follow up in September 2018 Referring Provider: JOSE M TALBOT [[id number]] Allergies As of Date: 07/29/2018 Noted Allergy Reaction OTHER OMEGA-3S 02/09/2012 10 - Anaphylaxis Comments: Tree nuts Environmental [Other] 11/04/2010 14 - Other: See Comments Comments: Cats Cockroach dustmites molds (September through May) trees (September, October and November) grasses (November and December) weeds (February, March and April) NUT - UNSPECIFIED 03/22/2018 10 - Anaphylaxis OMNICEF (CEFDINIR) 11/04/2010 4 - Hives tree nuts [Other] 11/04/2010 10 - Anaphylaxis Comments: Throat swells up Date Reviewed: 07/29/2018 Reviewed by: Marlen Sol - Fully Assessed Reason for Visit: Follow Up [171] Primary Visit Diagnosis:Eosinophilic esophagitis [K20.0] Other Visit Diagnoses:Esophageal dysphagia [R13.10] Esophageal stricture [K22.2] Order(s):IGA BLD [SQIGA] Order #: [id number] FUTURE ENDOMYSIAL IGA AB [SQENDOMY] Order #: [id number] FUTURE TRANSGLUTAMINASE IGA [SQTGIGA] Order #: [id number] FUTURE TRANSGLUTAMINASE IGG [SQTGIGG] Order #: [id number] FUTURE GLIADIN (DEAMINATED) ABS [SQGLIAD] Order #: [id number] FUTURE CONSULT TO PED ALLERGY CLINIC [9066] Order #: [id number]: 1 SURGICAL REQUEST - ELECTIVE [[id number]] Order #: [id number]: 1 Prescriptions as of 07/29/2018 Sig: FLUTICASONE 220 MCG/ACTUATION* 2 Puffs twice daily. OMEPRAZOLE 40 MG CAPSULE,BENNETT* Take 1 capsule by mouth once * EPINEPHRINE 0.3 MG/0.3 ML INJ* Inject as directed to the ant* EPINEPHRINE 0.3 MG/0.3 ML INJ* Inject to the anterior thigh * FLUTICASONE 50 MCG/ACTUATION * Use 2 Sprays in each nostril * LEVOCETIRIZINE 5 MG TABLET Take 1 tablet by mouth once d* ALBUTEROL SULFATE HFA 90 MCG/* Inhale 2 Puffs as instructed * RIZATRIPTAN 5 MG DISINTEGRATI* For a severe migraine take 1 * ONDANSETRON 4 MG DISINTEGRATI* One tablet po at the onset of* Problem List As Of Date 07/29/2018 Noted Resolved Asthma, intermittent [J45.20] INVALID FOR* Migraine [G43.909] INVALID FOR* Allergic rhinitis, cause unspecified [J30.9] INVALID FOR* Other atopic dermatitis and related conditions *INVALID FOR* 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 Episodic tension-type headache, not intractable*INVALID FOR* FH: aneurysm [Z82.49] INVALID FOR* Esophageal dysphagia [R13.10] INVALID FOR* Abdominal pain [R10.9] INVALID FOR* Eosinophilic esophagitis [K20.0] INVALID FOR* Esophageal stricture [K22.2] INVALID FOR* Dysphagia [R13.10] INVALID FOR* More... EE (eosinophilic esophagitis) [K20.0] INVALID FOR* More... Other instructions from your clinician: 1. Stop Flovent for now 2. Milk-free diet 3. Start Omeprazole 40 mg once daily 30 minutes before break fast 4. Allergy consult - Dr. Cheema 5. EGD with dilation in October 2018 6. Follow up in September 2018 Follow-up and Disposition History Recorded Encounter Status:Closed by JOSE M TALBOT MD on 08/04/18 [facility] PROGRESSon 07-29-2018 Protein mass conc HNO ID: [id number] Author: Jose M Lind Service: (none) Author Type: Physician Type: Progress Notes Filed: 08/04/2018 10:29 AM Note Text: Prior Clinic Visit: 06/06/2018 Background History: Leslie Thomas is a 18 year old male being seen today in pediatric GI clinic secondary to issues with Leslie Thomas is a 18 year old male being seen today in pediatric GI clinic secondary to issues with dysphagia secondary to EOE and esophageal stricture diagnosed in February 2017. He has an extensive history of environmental allergies, asthma and eczema. Given his PMH and worsening dysphagia, he underwent initial EGD with biopsy on 02/25/2017 which showed a stricture or ring about 15-17 cm from incisors and could not be intubated with Neoscope. Due to the safety concerns from anesthesiologist and lack of information on the length or etiology of this stricture, dilation was not done. Biopsies obtained from esophagus above the stricture showed features of EOE. Upper GI series were done on 03/15/2017 which showed 2 narrowing at:?the proximal esophagus and?at the mid esophagus. ?He was initially started on oral prednisolone which was gradually weaned and was recommended to start with swallowed budesonide. He had EGD on 04/29/2017 in OR which showed 2 esophageal strictures at the level of 15 cm and 25 cm from incisors. Both proximal and distal strictures were dilated to 10?mm using Quantum TTC (12*5.5) balloon dilator with visible mucosal disruption. Esophageal mucosa showed linear furrows and white plaques with biopsies consistent with EOE. He switched swallowed Flovent as he did not like the taste of swallowed budesonide. ? A subsequent EGD was performed in the OR on 07/08/17?showing again?Esophageal mucosa linear furrowing and white plaques and trachealization at proximal and mid esophagus with first stricture of esophagus noted at 15?cm from the incisors for which the neoscope was able to pass but the standard [id number] could not pass. This stricture?at 20 cm was dilated?with quantum TTC balloon 8 x 5.5 cm starting at 6 JOSHUA x 90 sec with subsequent dilations to maximum of 8 JOSHUA (8 mm) and then using the Quantum TTC 10 x 5.5 cm balloon to 9 mm and then 10 mm?x 60 sec each, then a second stricture was noted at 25 cm?from the incisors and subsequent dilation was performed using the Quantum TTC 12 x 5.5 cm balloon to 11 mm?x 60 seconds. All dilations showed mucosal disruption and fresh clotted blood with spontaneous resolution of bleeding in the areas after serial dilations. After completing the serial dilations the [id number] passed easily through the remaining esophagus without difficulty.?The remaining gastric mucosa was normal and the duodenal bulb showed mild erythema without ulceration or bleeding and the remaining duodenal mucosa was normal in appearance. Biopsies again showed eosinophils and mid and distal esophagus of ~50's in number. Leslie has since remained on Flovent 220 mcg 2 puffs BID which he has been adherent to over the last month after the recent EGD but he has not been as adherent to his PPI therapy with 40 mg qd taking on average 2-3 x per week. ? He had repeat EGD in September 2017 with the following findings: Esophageal stricture seen at 15 cm from incisors which was dilated with Quantum TTC balloon to 11 mm with visible mucosal disruptions. ?Another esophageal narrowing seen at 25 cm from incisors which was dilated to 12 mm with Quantum TTC balloon with visible mucosal disruptions. Linear furrows and white plaques with mucosal edema seen throughout the esophagus. Mild erythema seen in duodenal bulb. ?The gastric ?mucosa was?visually normal.??Biopsies showed significant eosinophilia with features of esophagitis and also focal active duodenitis. ?Because of the persistent esophageal eosinophilia with inflammation, recommended to switch to swallowed budesonide. ?However he developed abdominal pain with budesonide so his was switched back to Flovent. ??Also strongly recommended to be compliant with PPI. ? He had EGD on 03/22/2018 which showed Esophageal strictures?seen at 15 cm and 25 cm from incisors. Esophageal stricture at 15 cm was dilated with Quantum TTC balloon to 12?mm with visible mucosal disruptions. ?Another esophageal narrowing seen at 25 cm from incisors was dilated to 12 mm with Quantum TTC balloon with visible mucosal disruptions. Linear furrows seen throughout the esophagus. There was mild erythema at the duodenal bulb. Biopsies showed decreasing esophageal eosinophilia He had EGD on 06/30/2018 which showed Esophageal strictures?seen at 15 cm and 25 cm from incisors. Esophageal stricture at 15 cm was dilated with Quantum TTC balloon to 12?mm with visible mucosal disruptions. ?Another esophageal narrowing seen at 25 cm from incisors was dilated to 13 mm with Quantum TTC balloon with visible mucosal disruptions. Linear furrows seen throughout the esophagus. There was erythema at the duodenal bulb. Biopsies showed significant eosinophilia both in proximal and distal esophagus along with duodenitis. Interval History: History provided by mother and patient. Since the last visit, he has been doing well. He did have mild chest pain after dilation which resolved in 1 week. No abdominal pain, nausea or vomiting reported. No dysphagia with both solids and liquids. No food impaction or vomiting reported. Bowel movements are once daily, normal in consistency with no diarrhea or blood in stools. He has been compliant with his medications. He expresses interest in elimination diet for EOE. Medications: Current Outpatient Prescriptions on File Prior to Visit: fluticasone (FLOVENT HFA) 220 mcg/actuation inhaler 2 Puffs twice daily. Omeprazole (PRILOSEC) 40 mg capsule Take 1 capsule by mouth once daily. Open capsule and sprinkle granules on small amount of applesauce or pudding and swallow EPINEPHrine (EPIPEN 2-SHERLY) 0.3 mg/0.3 mL auto-injector Inject as directed to the anterior thigh as directed by symptoms in the allergy action plan. If used the patient must seek emergency medical care. May repeat a second dose after 5 minutes for failure to respond or worsening symptomatology while awaiting EMS. Dispensed to twin packs with trainers. Dispense generic Epipens. EPINEPHrine (AUVI-Q) 0.3 mg/0.3 mL auto-injector Inject to the anterior thigh as directed by signs and symptoms in the allergy action plan. If used the patient needs to seek emergency medical care. May repeat a second dose after 5 minutes for failure respond or worsening symptoms. Dispense 2 twin packs with trainers fluticasone (FLONASE) 50 mcg/actuation nasal spray Use 2 Sprays in each nostril once daily. Levocetirizine (XYZAL) 5 mg tablet Take 1 tablet by mouth once daily as needed (for itching, sneezing or runny nose. ). albuterol HFA (PROVENTIL HFA, VENTOLIN HFA) 90 mcg/actuation inhaler Inhale 2 Puffs as instructed every 4 hours as needed. Use with spacer. rizatriptan (MAXALT CARPET TILE LAYER) 5 mg disintegrating tablet For a severe migraine take 1 tablet by mouth. If no improvement in 2 hours may take a second tablet. May take 2 doses of Maxalt in one day, 4 doses and 2 consecutive days, no more than 8 doses per month. ondansetron orally disintegrating (ZOFRAN ODT) 4 mg disintegrating tablet One tablet po at the onset of a migraine headache. No current facility-administered medications on file prior to visit. Review Of Systems: Constitutional:- No significant change in weight, no fatigue. ENDO:- no diabetes or thyroid disease CVS:- No history of heart disease, No history of heart murmurs RESP:- no wheezing, frequent cough or shortness of breath GI:- See HPI NEURO:-Normal growth and development. :-negative for dysuria/micturition problems Integumentary:- Negative for lesions, rash, and itching. Musculoskeletal:- Negative for joint pains/edema Psychiatry:-anxiety Hematologic/Lymphatic:-No history of anemia, bruising, bleeding abnormalities. Allergic/Immunologic:-no hay fever or drug allergies Review of systems is otherwise unremarkable and normal. Past medical, family history, and surgical history: reviewed with no new additions noted. PAST MEDICAL HISTORY Diagnosis Date - Asthma - Bone tumor right leg - Eczema - Eosinophilic esophagitis - Esophageal stricture - Status post balloon dilatation of esophageal stricture PAST SURGICAL HISTORY Procedure Laterality Date - CIRCUMCISION,CLAMP,NEWBOR N FAMILY HISTORY Problem Relation Age of Onset - Asthma Mother - other (hypothyroid) Mother - None Father - None Maternal Grandmother - None Maternal Grandfather - other (aneusym) Paternal Grandmother 40 - Cancer Paternal Grandfather Colon Physical Exam: BP 122/64 Pulse 55 Ht 5' 10.866" (1.80m) Wt 171 lb 4.8 oz (77.7kg) BMI 23.98 kg/(m2). General/Constitutional:- alert and active in no apparent distress Head:- Normocephalic Eye:- PERRLA, conjunctiva clear, no icterus Oropharynx:- moist mucous membranes, tonsils without hypertrophy and no exudates present Neck/Lymphatic:- supple, no adenopathy Cardiac:- Regular Rate and Rhythm without murmurs or clicks Respiratory:- clear to auscultation Gastrointestinal:- Abdomen is soft, non-tender; BS normal, there are no masses or organomegaly and there are no abdominal or flank bruits noted on auscultation Rectal :- deferred exam Skin:-normal color, no jaundice or rash Labs/Radiology: EGD with biopsy 06/30/2018 FINAL DIAGNOSIS 1. Duodenum, bulb, biopsy (A) - Duodenal mucosa with mild reactive epithelial changes and a minimal patchy increase in intraepithelial lymphocytes with intact villous architecture. - See comment. 2. Esophagus, distal, biopsy (B) - Squamous mucosa with eosinophilic esophagitis pattern of injury with reactive epithelial changes and prominent increase in intraepithelial eosinophils (focally greater than 50 eosinophiles per high power field). 3. Esophagus, proximal, biopsy (C) - Ulcerated fragments of squamous mucosa with eosinophilic esophagitis pattern of injury with reactive epithelial changes and patchy increase in intraepithelial eosinophils (focally greater than 50 eosinophiles per high power field). NUHA/moises/07/01/18 ? ? COMMENT 1. Intraepithelial lymphocytosis is etiologically nonspecific and can be associated with celiac disease, gluten-resistant sprue (so-called "Refractory Sprue" and tropical sprue), H. Pylori gastritis, various viral infections (including cytomegalovirus), Crohn's Disease, drugs/medication, bacterial overgrowth, slow bowel transit and microscopic (lymphocytic and collagenous) colitis, among others. Correlation with pertinent clinical and laboratory features is suggested. Impression: Leslie Thomas is a 18 year old male being seen today in pediatric GI clinic secondary to issues with dysphagia secondary to EOE and esophageal stricture diagnosed in February 2017. He has an extensive history of environmental allergies, asthma and eczema.??He is currently being managed on Flovent 220 mcg 4 puffs twice daily. ?His esophageal strictures are?at 15 and 25 cm from incisors status post balloon dilation ?5 with the last dilation in June 2018. ?His biopsies have been consistently showing significant esophageal eosinophilia including recent biopsies. There have been issues with medication compliance in the past however he reports full compliance with medications now. He has been doing well with no dysphagia after dilation. He is well appearing on examination today. He will like to try elimination diet for EOE since Flovent did not improve eosinophilia and/or like to stop Flovent. He reports restricting milk intake during one of the upper endoscopies which showed decreased esophageal eosinophilia. So recommended to start milk elimination diet for now and recommended referral to allergy for elimination diet for EOE. We'll continue to repeat EGD with dilation every 4 months since he becomes symptomatic around 3-4 months. Plan: 1. Can Stop Flovent for now 2. Milk-free diet 3. Start Omeprazole 40 mg once daily 30 minutes before break fast 4. Allergy consult for elimination diet 5. EGD with dilation in October 2018 6. Follow up in September 2018 Office Visit on 07/29/18 -IGA BLD -ENDOMYSIAL IGA AB -TRANSGLUTAMINASE IGA -TRANSGLUTAMINASE IGG -GLIADIN (DEAMINATED) ABS -CONSULT TO PED ALLERGY CLINIC -SURGICAL REQUEST - ELECTIVE I spent 40 minutes with greater than 50% of the time coordinating care and counseling the patient as detailed in my impression and recommendations. Jose M Lind MD Pediatric Gastroenterology Staff July 29, 2018 10:31 AM Pager Number [phone] CC: Chioma Maldonado MD [id number] [facility] [id number] [facility] CT CHEST W IVCONon 7 CT CHEST W IVCON * * *Final Report* * *DATE OF EXAM: Apr 19 2017 1:57PM [facility] 0539 - CT CHEST W IVCON / REASON: K22.2-Esophageal obstruction * * * * Physician Interpretation * * * * EXAMINATION: CHEST CT WITH CONTRASTCLINICAL HISTORY: Esophageal obstructionTechnique: Spiral CT acquisition of the chest from the thoracic inlet to the upper abdomen following IV contrast.M: [id number]: 50 mL Omnipaque 300 IVCT Dose-Length Product: 143 mGy*cmCT Dose Reduction Employed: mAs-kVp adjusted based on patient size-ageComparison: Upper GI dated 03/15/2017RESULT:Limitati ons: None.Lines, tubes, and devices: None.Lung parenchyma and pleura: No consolidation. No suspicious pulmonary nodule. No pleural effusion. Central airways are patent.Thoracic inlet, heart, and mediastinum: No lymphadenopathy in the axillary, mediastinal, or hilar regions. The thoracic aorta and main pulmonary artery are normal in caliber.Bones and soft tissues: There are multiple vertebral endplate irregularities ( Schmorl's nodes) throughout the thoracic spine.Upper abdomen: No abnormality in the imaged upper abdomen.IMPRESSION:No abnormality is seen in the mediastinum or lungs.Multiple Schmorl's nodes in the thoracic spine.Tag Clerk: MACHO Transcribe Date/Time: Apr 19 2017 3:06PDictated by : MILLA MARKS MDThis examination was interpreted and the report reviewed and electronically signed by: MILLA MARKS MD on Apr 19 2017 3:09PM [id number] [facility] Vital Signs Date Time Vital Sign Value Performing Clinician Facility 04-26-2023 01:00-0400 Body temperature 100.76 [degF] DR KALYAN CANNON MD [facility] 04-26-2023 01:00-0400 Diastolic Blood Pressure Non-Invasive [address] KALYAN CANNON MD [facility] 04-26-2023 01:00-0400 Heart rate 100 /min DR KALYAN CANNON MD [facility] 04-26-2023 01:00-0400 Respiratory rate 18 /min DR KALYAN CANNON MD [facility] 04-26-2023 01:00-0400 Systolic Blood Pressure Non-Invasive [address] KALYAN CANNON MD [facility] 03-25-2023 07:15-0400 Body temperature 97.5 [degF] Dr. Chioma Maldonado Work Phone: [facility] 03-25-2023 07:15-0400 Diastolic blood pressure 68 mm[Hg] Dr. Chioma Maldonado Work Phone: [facility] 03-25-2023 07:15-0400 Heart rate 65 /min Dr. Chioma Maldonado Work Phone: [facility] 03-25-2023 07:15-0400 Respiratory rate 18 /min Dr. Chioma Maldonado Work Phone: [facility] 03-25-2023 07:15-0400 SaO2% (BldA) [Mass fraction] 97 % Dr. Chioma Maldonado Work Phone: [facility] 03-25-2023 07:15-0400 Systolic blood pressure 134 mm[Hg] Dr. Chioma Maldonado Work Phone: [facility] 03-25-2023 06:07-0400 Body height 182.[address] Chioma Maldonado Work Phone: [facility] 03-25-2023 06:07-0400 Body mass index (BMI) [Ratio] 26.2 kg/m2 Dr. Chioma Maldonado Work Phone: [facility] 03-25-2023 06:07-0400 Body weight 87.[address] Chioma Maldonado Work Phone: [facility] 01-17-2022 13:51-0400 Body temperature 98.24 [degF] PEDRO SANABRIA MD [facility] 01-17-2022 13:51-0400 Diastolic blood pressure 77 mm[Hg] PEDRO SANABRIA MD [facility] 01-17-2022 13:51-0400 Heart rate 65 /min PEDRO SANABRIA MD [facility] 01-17-2022 13:51-0400 Reason For Taking VItal Signs PEDRO SANABRIA MD [facility] 01-17-2022 13:51-0400 Respiratory rate 18 /min PEDRO SANABRIA MD [facility] 01-17-2022 13:51-0400 Systolic blood pressure 119 mm[Hg] PEDRO SANABRIA MD [facility] 01-12-2022 17:35-0400 Body temperature 97.16 [degF] PEDRO SANABRIA MD [facility] 01-12-2022 17:35-0400 Diastolic Blood Pressure NBP 77 1 PEDRO SANABRIA MD [facility] 01-12-2022 17:35-0400 Heart rate 72 /min PEDRO SANABRIA MD [facility] 01-12-2022 17:35-0400 Respiratory rate 20 /min PEDRO SANABRIA MD [facility] 01-12-2022 17:35-0400 Systolic Blood Pressure NBP 125 1 PEDRO SANABRIA MD [facility] 01-09-2022 18:59-0400 Diastolic blood pressure 80 mm[Hg] PEDRO SANABRIA MD [facility] 01-09-2022 18:59-0400 Heart rate 74 /min PEDRO SANABRIA MD [facility] 01-09-2022 18:59-0400 Respiratory rate 16 /min PEDRO SANABRIA MD [facility] 01-09-2022 18:59-0400 Systolic blood pressure 132 mm[Hg] PEDRO SANABRIA MD [facility] 01-09-2022 17:56-0400 Body height 182 cm PEDRO SANABRIA MD [facility] 01-09-2022 17:56-0400 Body temperature 98.78 [degF] PEDRO SANABRIA MD [facility] 01-09-2022 17:56-0400 Body weight 84 kg PEDRO SANABRIA MD [facility] 01-09-2022 17:56-0400 Diastolic blood pressure 79 mm[Hg] PEDRO SANABRIA MD [facility] 01-09-2022 17:56-0400 Heart rate 85 /min PEDRO SANABRIA MD [facility] 01-09-2022 17:56-0400 Respiratory rate 16 /min PEDRO SANABRIA MD [facility] 01-09-2022 17:56-0400 Systolic blood pressure 117 mm[Hg] PEDRO SANABRIA MD [facility] 09-22-2020 13:22-0400 BP Diastolic 70 mm[Hg] Luis BLEDSOE Work Phone: 09-22-2020 13:22-0400 BP Systolic 133 mm[Hg] Luis BLEDSOE Work Phone: 09-22-2020 13:22-0400 Pulse (Heart Rate) 50 /min Luis BLEDSOE Work Phone: 09-22-2020 13:22-0400 Pulse Oximetry 100 % Luis BLEDSOE Work Phone: 09-22-2020 13:22-0400 Respiratory Rate 14 /min Luis BLEDSOE Work Phone: 09-22-2020 11:26-0400 BMI (Body Mass Index) 25.27 kg/m2 Luis BLEDSOE Work Phone: 09-22-2020 11:26-0400 Body Temperature 98.2 [degF] Luis BLEDSOE Work Phone: 09-22-2020 11:26-0400 Body weight 83.92 kg Luis BLEDSOE Work Phone: 09-22-2020 11:26-0400 Height 182.2 cm Luis BLEDSOE Work Phone: Encounters Encounter Date Encounter Type Care Provider Facility Start: 06-08-2025 ambulatory Len Friend Facility :[facility] Start: 04-27-2025 End: 04-27-2025 ambulatory [facility] Friend Facility:[facility] Start: 02-28-2025 End: 04-27-[address] DEMETRA LOPEZ MD Facility:[facility] Start: 02-28-2025 End: 04-27-2025 Physical therapy management KYLE PHELAN PA-C [facility] Start: 07-13-2023 End: 07-14-2023 ambulatory CHIOMA MALDONADO Facility:[facility] Start: 04-26-2023 End: 04-26-2023 Emergency department patient visit DR KALYAN CANNON MD Facility: Start: 04-26-2023 End: 04-26-2023 Emergency department patient visit DR KALYAN CANNON MD [facility] Start: 03-25-2023 Non-patient / Non-visit Dr. Chioma Maldonado Work Phone: [facility] Start: 03-25-2023 End: 03-25-2023 Admission to same day surgery center Dr. Chioma Maldonado Work Phone: [facility] Work Phone: Start: 03-25-2023 End: 03-25-[address] Chioma Maldonado Work Phone: [facility] Work Phone: Start: 01-17-2023 End: 01-17-2023 ambulatory CHIOMA MALDONADO Facility:[facility] Start: 12-08-2022 End: 12-08-[address] Chioma Maldonado Work Phone: [facility]astro[facility] Work Phone: Start: 11-23-2022 End: 11-23-2022 ambulatory CHIOMA MALDONADO Facility:[facility] Start: 11-23-2022 End: 05-22-2023 Subsequent hospital visit by physician Xr [facility] Deepak Work Phone: Radiology Comment on above: Hand pain, right [M7 9.641] Start: 11-21-2022 End: 11-21-2022 ambulatory [facility] Facility:[facility] Start: 01-17-2022 End: 01-17-2022 SAME DAY STAY PEDRO SANABRIA MD [facility] Start: 01-12-2022 End: 01-12-2022 SAME DAY STAY PEDRO SANABRIA MD [facility] Start: 01-09-2022 End: 01-09-2022 Emergency department patient visit PEDRO SANABRIA MD [facility] Start: 09-23-2021 End: 09-23-2021 ambulatory Sabra Mccarthy MD Work Phone: Gastroenterology Comment on above: Eosinophilic esophag itis (Primary Dx); Esophageal dysphagia; Heartburn; Esophageal stenosis Start: 09-23-2021 End: 09-23-2021 Telemedicine consultation with patient Sabra Mccarthy MD Work Phone: [facility] Start: 09-22-2020 End: 09-22-2020 Emergency department patient visit Luis Moreno Work Phone: [facility] Comment on above: Tension-type headach e, not intractable, unspecified chronicity pattern (Primary Dx) Start: 10-21-2018 End: 10-21-2018 Patient encounter procedure [facility] Start: 07-29-2018 End: 07-29-2018 Patient encounter procedure [facility] Start: 04-19-2017 Ambulatory [facility] Procedures Date Procedure Procedure Detail Performing Clinician Start: 03-25-[address] Chioma lew Work Phone: Start: 11-23-2022 Radex hand minimum 3 views Jose Francisco meredith MD Work Phone: Start: 09-22-2020 Ct angiography head w/contrast/noncontrast Luis Moreno Work Phone: Start: 09-22-2020 Ct head/brain w/o contrast material Ronaldo Moreno Work Phone: Start: 09-22-2020 Basic metabolic panel calcium total Ronaldo Moreno Work Phone: Start: 01-19-2017 Adult depression screening assessment Sabra Mccarthy MD Work Phone: Plan of Treatment Date Care Activity Detail Author Start: 03-05-2024 Covid-19 Vaccine () Covid-19 Vaccine () [facility] Start: 03-05-2024 Influenza vaccination Influenza Vacc ine (#1) [facility] Start: 03-25-2023 [place] [facility] [place]: 02-16-2023 Urine microalbumin profile [facility] Start: 03-05-2021 Influenza vaccination INFLUENZA (#1) [facility] Start: 03-05-2020 Influenza vaccination Flu vaccine (# 1) [facility] Work Phone: Start: 03-17-2019 ANNUAL PCP TEAM BURNER TENDER DERICK DISEASE VISIT ANNUAL PCP TEAM CHRONIC DISEASE VISIT [facility] Start: 2018 Annual PCP Team Wrap Checker derick Disease Visit Annual PCP Team Chronic Disease Visit [facility] Start: 2018 Anxiety Screening Anxiety Screening [facility] Start: 2018 Depression Screening Depression Scre ening [facility] Start: 2018 HEPATITIS C SCREENING HEPATITIS C [facility] Start: 2018 Hepatitis C screening Hepatitis C [facility] Start: 2018 HIV SCREENING HIV SCREENING [facility] Start: 2018 HIV screening HIV Screening [facility] Start: 2018 SPIROMETRY SPIROMETRY [facility] Start: 01-19-2018 Adult depression screening assessment DEPRESSION SCREENING [facility] Start: 2016 Meningococcal B Vacc ine: Consider Based On Risk (1 of 2 - Patient Seeks Protection) Meningococcal B Vaccine: Consider Based On Risk (1 of 2 - Patient Seeks Protection) [facility] Start: 2015 HPV Vaccine (1 - Mal e 3-dose series) HPV Vaccine (1 - Male 3-dose series) [facility] Start: 01-18-2015 ASTHMA CONTROL TEST ASTHMA CONTROL T EST [facility] Start: 2014 PEDS TO ADULT TRANSI TION ANNUAL ASSESSMENT PEDS TO ADULT TRANSITION ANNUAL ASSESSMENT [facility] Start: 2012 PEDS TO ADULT TRANSI TION INITIAL DISCUSSION PEDS TO ADULT TRANSITION INITIAL DISCUSSION [facility] Start: 2011 HPV VACCINE (1 - Mal e 2-dose series) HPV VACCINE (1 - Male 2-dose series) [facility] Start: 2010 MENINGOCOCCAL B: Consider based on risk (1 of 2 - Risk Bexsero 2-dose series) MENINGOCOCCAL B: Consider based on risk (1 of 2 - Risk Bexsero 2-dose series) [facility] Start: 2005 COVID-19 VACCINE (1) COVID-19 VACCIN E (1) [facility] Start: 2002 ASTHMA ACTION PLAN ASTHMA ACTION WU N [facility] End: 09-23-2022 EGD - THERAPEUTIC, EUS, OR TUBE INTERVENTIONS EGD - THERAPEUTIC, EUS, OR TUBE INTERVENTIONS Endoscopy Routine Eosinophilic esophagitis 1 Occurrences starting 09/23/2021 until 09/23/2022 [facility] Work Phone: Comment on above: 1 Occurrences starti ng 09/23/2021 until 09/23/2022 Patient referral [facility] Work Phone: End: 10-23-2022 Radiologic exam esophagus single contrast study XR ESOPHAGRAM Radiology Routine Eosinophilic esophagitis 1 Occurrences starting 09/23/2021 until 10/23/2022 [facility] Work Phone: Comment on above: 1 Occurrences starti ng 09/23/2021 until 10/23/2022 Immunizations Immunization Date Immunization Notes Care Provider Jolie small 01-24-2022 Human rabies vaccine from Chicken fibroblast culture DR KALYAN CANNON MD [facility] 01-17-2022 Human rabies vaccine from Chicken fibroblast culture PEDRO SANABRIA MD [facility] 01-12-2022 Human rabies vaccine from Chicken fibroblast culture PEDRO SANABRIA MD [facility] 01-09-2022 Human rabies vaccine from Chicken fibroblast culture PEDRO SANABRIA MD [facility] 01-19-2017 meningococcal polysaccharide (groups A, C, Y and W-135) diphtheria toxoid conjugate vaccine (MCV4P) Sabra Mccarthy MD Work Phone: [facility] 05-01-2014 influenza virus vacc ine, unspecified formulation PEDRO SANABRIA MD [facility] 05-01-2014 influenza, live, intranasal, quadrivalent Sabra Mccarthy MD Work Phone: [facility] 04-19-2013 influenza virus vacc ine, unspecified formulation Sabra Mccarthy MD Work Phone: [facility] 02-16-2013 Meningococcal, MCV4, unspecified conjugate formulation(groups A, C, Y and W-135) Sabra Mccarthy MD Work Phone: [facility] Work Phone: 02-16-2013 tetanus toxoid, redu porsha diphtheria toxoid, and acellular pertussis vaccine, adsorbed Sabra Mccarthy MD Work Phone: [facility] Work Phone: 02-16-2013 varicella virus vaccine Tyree Mccarthy MD Work Phone: [facility] Work Phone: 05-27-2012 influenza virus vacc ine, unspecified formulation Sabra Mccarthy MD Work Phone: [facility] 06-09-2010 influenza virus vacc ine, unspecified formulation Sabra Mccarthy MD Work Phone: [facility] Work Phone: 05-27-2008 influenza virus vacc ine, live, attenuated, for intranasal use Sabra Mccarthy MD Work Phone: [facility] Work Phone: 07-15-2007 influenza virus vacc ine, unspecified formulation Sabra Mccarthy MD Work Phone: [facility] Work Phone: 08-25-2005 diphtheria, tetanus toxoids and acellular pertussis vaccine Sabra Mccarthy MD Work Phone: [facility] Work Phone: 08-25-2005 measles, mumps and rubella virus vaccine Sabra Mccarthy MD Work Phone: [facility] Work Phone: 08-25-2005 poliovirus vaccine, inactivated Sabra Mccarthy MD Work Phone: [facility] Work Phone: 10-14-2001 diphtheria, tetanus toxoids and acellular pertussis vaccine Sabra Mccarthy MD Work Phone: [facility] Work Phone: 10-14-2001 haemophilus influenz ae type b vaccine, HbOC conjugate Sabra Mccarthy MD Work Phone: [facility] Work Phone: 07-22-2001 measles, mumps and rubella virus vaccine Sabra Mccarthy MD Work Phone: [facility] Work Phone: 05-13-2001 varicella virus vaccine Tyree Mccarthy MD Work Phone: [facility] Work Phone: 04-18-2001 hepatitis B vaccine, pediatric or pediatric/adolescent dosage Sabra Mccarthy MD Work Phone: [facility] Work Phone: 02-21-2001 pneumococcal conjuga te vaccine, 7 valent Sabra Mccarthy MD Work Phone: [facility] Work Phone: 02-21-2001 poliovirus vaccine, inactivated Sabra Mccarthy MD Work Phone: [facility] Work Phone: 2000 diphtheria, tetanus toxoids and acellular pertussis vaccine Sabra Mccarthy MD Work Phone: [facility] Work Phone: 2000 haemophilus influenz ae type b vaccine, HbOC conjugate Sabra Mccarthy MD Work Phone: [facility] Work Phone: 2000 hepatitis B vaccine, pediatric or pediatric/adolescent dosage Sabra Mccarthy MD Work Phone: [facility] Work Phone: 2000 pneumococcal conjuga te vaccine, 7 valent Sabra Mccarthy MD Work Phone: [facility] Work Phone: 2000 diphtheria, tetanus toxoids and acellular pertussis vaccine Sabra Mccarthy MD Work Phone: [facility] Work Phone: 2000 haemophilus influenz ae type b vaccine, HbOC conjugate Sabra Mccarthy MD Work Phone: [facility] Work Phone: 2000 pneumococcal conjuga te vaccine, 7 valent Sabra Mccarthy MD Work Phone: [facility] Work Phone: 2000 poliovirus vaccine, inactivated Sabra Mccarthy MD Work Phone: [facility] Work Phone: 2000 diphtheria, tetanus toxoids and acellular pertussis vaccine Sabra Mccarthy MD Work Phone: [facility] Work Phone: 2000 haemophilus influenz ae type b vaccine, HbOC conjugate Sabra Mccarthy MD Work Phone: [facility] Work Phone: 2000 poliovirus vaccine, inactivated Sabra Mccarthy MD Work Phone: [facility] Work Phone: 2000 hepatitis B vaccine, pediatric or pediatric/adolescent dosage Sabra Mccarthy MD Work Phone: [facility] Work Phone: Payers Date Payer Category Payer Self-pay [id number] 2019 Private Health Insurance [employer] A ETNA CHOICE POS II [id number] 2019-Present [phone] [address] [place] [address] POS [id number] 2019 Private Health Insurance [id number] 2011 Private Health Insurance [id number] 2011 Unknown [id number] 2000 Unknown [id number] 2000 Unknown [id number] 27 Unknown [id number] Unknown [id number] Social History Date Type Detail Facility Start: 09-22-2020 End: 01-09-2022 Tobacco smoking status NHIS Never smoker [facility] Start: 11-14-2013 End: 09-22-2020 Tobacco use and exposure Never used [facility] Work Phone: Start: 09-22-2020 Alcohol intake Lifetime non-d maricel (finding) [facility] Work Phone: Start: 09-22-2020 History SDOH Alcohol Frequency 1 [facility] Work Phone: Start: 2000 Sex Assigned At Not on file [email or web address] Work Phone: Start: 08-09-2021 End: 09-08-2021 Exposure to SARS-CoV-2 (event) Not sure [facility] Work Phone: Start: 09-23-2021 End: 11-21-2022 Alcohol intake Current non-drinker of alcohol (finding) [facility] Start: 2000 Sex Assigned At Male A [facility] Start: 03-23-2023 Tobacco smoking stat us ARIS Unknown if ever smoked [facility] Start: 06-10-2020 End: 11-21-2022 History of Social function [facility] Start: 06-10-2020 End: 11-21-2022 Tobacco use panel [facility] National Score (1-10 0), lower number is lower risk Not on file [facility] Sexual Orientation [facility] Start: 01-09-2022 Sex Male (finding) [facility] Goals Date Patient Goal Desired Activity /State Functional Status Date Assessment Result Facility 02-28-2025 Functional Status Home Living Ad ditional Information OBJECTIVE: Posture - appears symmetrical\\ AROM - full ROM of both shoulders. ER to ~ 120 on R Strength - mild weakness and pain with R shoulder ABD, ER, horiz ABD 5-/5. pain in lateral scapular area with resistance. Special test -lift off test (+) Empty can test - mildly (+) Biceps Load test (-)Apprehension (-) for pain but (+) for anterior translation of the humeral head [facility] 04-26-2023 Functional Status ID band on, Call device within reach, Bed in low position [facility] 01-09-2022 Functional Status Independent [facility] 01-09-2022 Functional Status Standard Safet y ID band on, Call device within reach, Bed in low position, Wheels locked [facility] Mental Status Date Assessment Result Facility 04-26-2023 Mental Status Orientation Oriented x 4 [facility] 03-25-2023 Cognitive function Voice/Name [facility] Work Phone: 01-09-2022 Mental Status Orientation Oriented x 4 [facility] Clinical Notes 09-23-2021 to 07-13-2023 Nataly Iniguez RT(R) - 11/23/2022 5:30 PM EDTPatient InstructionsSabra Mccarthy MD - 09/23/2021 8:00 AM EDT Note Date & Type Note Facility 07-13-2023 Note HNO ID: [id number] Author: SHELIA FOY APRN.JOB COACH/JOB DEVELOPER Service: ? Author Type: Nurse Practitioner Type: Progress Notes Filed: 07/13/2023 19:37 Note Text: This note was created using NoteWriter. Subjective Leslie Thomas is a 23 year old male. 23 year old male with PMH migraine, asthma, eosinophilic esophagitis presents for illness. Acute onset over the past week +sinus pressure + congestion +cough Over the past couple days, right ear pain and pressure Denies fever or chills Denies N/V/D The history is provided by the patient. No odd shoe examiner was used. Ear Pain This is a new problem. The current episode started in the past 7 days. The problem occurs constantly. The problem has been gradually worsening. Associated symptoms include congestion, coughing and headaches. Pertinent negatives include no abdominal pain, anorexia, arthralgias, change in bowel habit, chest pain, chills, diaphoresis, fatigue, fever, joint swelling, myalgias, nausea, neck pain, numbness, rash, sore throat, swollen glands, urinary symptoms, vertigo, visual change, vomiting or weakness. Nothing aggravates the symptoms. He has tried nothing for the symptoms. The treatment provided no relief. PAST MEDICAL HISTORY Diagnosis Date Asthma Bone tumor right leg Eczema Eosinophilic esophagitis Esophageal stricture Status post balloon dilatation of esophageal stricture PAST SURGICAL HISTORY Procedure Laterality Date CIRCUMCISION W/CLAMP/OTH DEV W/BLOCK ALLERGIES Other Clint-3s, Nut - Unspecified, and Omnicef [Cefdinir] MEDICATIONS levocetirizine (XYZAL) 5 mg tablet Take 1 tablet by mouth once daily as needed (for itching, sneezing or runny nose. ). fluticasone (FLONASE) 50 mcg/actuation nasal spray Use 2 Sprays in each nostril once daily. famotidine (PEPCID) 20 mg tablet Take 1 tablet by mouth at bedtime as needed. EPINEPHrine (EPIPEN 2-SHERLY) 0.3 mg/0.3 mL auto-injector Inject as directed to the anterior thigh as directed by symptoms in the allergy action plan. If used the patient must seek emergency medical care. May repeat a second dose after 5 minutes for failure to respond or worsening symptomatology while awaiting EMS. Dispensed to twin packs with trainers. Dispense generic Epipens. EPINEPHrine (AUVI-Q) 0.3 mg/0.3 mL auto-injector Inject to the anterior thigh as directed by signs and symptoms in the allergy action plan. If used the patient needs to seek emergency medical care. May repeat a second dose after 5 minutes for failure respond or worsening symptoms. Dispense 2 twin packs with trainers albuterol HFA (PROVENTIL HFA, VENTOLIN HFA) 90 mcg/actuation inhaler Inhale 2 Puffs as instructed every 4 hours as needed. Use with spacer. rizatriptan (MAXALT CARPET TILE LAYER) 5 mg disintegrating tablet For a severe migraine take 1 tablet by mouth. If no improvement in 2 hours may take a second tablet. May take 2 doses of Maxalt in one day, 4 doses and 2 consecutive days, no more than 8 doses per month. amoxicillin-clavulanate potassium (AUGMENTIN) 875-125 mg per tablet Take 1 tablet by mouth two times a day for 7 days. FAMILY HISTORY Problem Relation Age of Onset Asthma Mother other (hypothyroid) Mother None Father None Maternal Grandmother None Maternal Grandfather other (aneusym) Paternal Grandmother 40 Cancer Paternal Grandfather Colon Colon Cancer Paternal Grandfather Social History Tobacco Use Smoking status: Never Smokeless tobacco: Never Substance Use Topics Alcohol use: No Drug use: No Review of Systems Constitutional: Negative for chills, diaphoresis, fatigue and fever. HENT: Positive for congestion, ear pain, sinus pressure and sinus pain. Negative for sore throat. Eyes: Negative for photophobia, pain, discharge, redness, itching and visual disturbance. Respiratory: Positive for cough. Negative for apnea and chest tightness. Cardiovascular: Negative for chest pain. Gastrointestinal: Negative for abdominal pain, anorexia, change in bowel habit, nausea and vomiting. Musculoskeletal: Negative for arthralgias, joint swelling, myalgias and neck pain. Skin: Negative for color change, pallor and rash. Allergic/Immunologic: Negative for environmental allergies, food allergies and immunocompromised state. Neurological: Positive for headaches. Negative for dizziness, vertigo, facial asymmetry, weakness and numbness. Hematological: Negative for adenopathy. Does not bruise/bleed easily. Psychiatric/Behavioral: Negative for agitation and behavioral problems. Objective BP 112/78 Pulse 74 Temp 36.5 ?C (97.7 ?F) (Tympanic) Resp 16 Wt 87.3 kg (192 lb 6.4 oz) SpO2 96% BMI 26.09 kg/m? Physical Exam Vitals and nursing note reviewed. Constitutional: General: He is not in acute distress. Appearance: Normal appearance. He is not ill-appearing, toxic-appearing or diaphoretic. HENT: Head: Normocephalic and atraumatic. Right Ear: Externa (more content not included)... [facility] 04-26-2023 Hospital Discharge instructions Patient Education 04/26/2023 01:25:41 Pharyngitis, Report Pending Pharyngitis (Sore Throat), Report Pending Pharyngitis (sore throat) is often due to a virus. It can also be caused by streptococcus (strep), bacteria. This is often called strep throat. Both viral and strep infections can cause throat pain that is worse when swallowing, aching all over, headache, and fever. Both types of infections are contagious. They may be spread by coughing, kissing, or touching others after touching your mouth or nose. A test has been done to find out if you or your child have strep throat. Call this facility or your healthcare provider if you were not given your test results. If the test is positive for strep infection, you will need to take antibiotic medicines. A prescription can be called into your pharmacy at that time. If the test is negative, you probably have a viral pharyngitis. This does not need to be treated with antibiotics. Until you receive the results of the strep test, you should stay home from work. If your child is being tested, he or she should stay home from school. Home care Rest at home. Drink plenty of fluids so you won't get dehydrated. If the test is positive for strep, you or your child should not go to work or school for the first 2 days of taking the antibiotics. After this time, you or your child will not be contagious. You or your child can then return to work or school when feeling better. Use the antibiotic medicine for the full 10 days. Do not stop the medicine even if you or your child feel better. This is very important to make sure the infection is fully treated. It is also important to prevent medicine-resistant germs from growing. If you or your child were given an antibiotic shot, no more antibiotics are needed. Use throat lozenges or numbing throat sprays to help reduce pain. Gargling with warm salt water will also help reduce throat pain. Dissolve 1/2 teaspoon of salt in 1 glass of warm water. Children can sip on juice or a popsicle. Children 5 years and older can also suck on a lollipop or hard candy. Don't eat salty or spicy foods or give them to your child. These can irritate the throat. Other medicine for a child: You can give your child acetaminophen for fever, fussiness, or discomfort. In babies over 6 months of age, you may use ibuprofen instead of acetaminophen. If your child has chronic liver or kidney disease or ever had a stomach ulcer or GI bleeding, talk with your child s healthcare provider before giving these medicines. Aspirin should never be used by any child under 18 years of age who has a fever. It may cause severe liver damage. Other medicine for an adult: You may use acetaminophen or ibuprofen to control pain or fever, unless another medicine was prescribed for this. If you have chronic liver or kidney disease or ever had a stomach ulcer or GI bleeding, talk with your healthcare provider before using these medicines. Follow-up care Follow up with your healthcare provider or our staff if you or your child don't get better over the next week. When to seek medical advice Call your healthcare provider right away if any of these occur: Fever as directed by your healthcare provider. For children, seek care if: oYour child is of any age and has repeated fevers above 104 F (40 C). oYour child is younger than 2 years of age and has a fever of 100.4 F (38 C) for more than 1 day. oYour child is 2 years old or older and has a fever of 100.4 F (38 C) for more than 3 days. New or worsening ear pain, sinus pain, or headache Painful lumps in the back of neck Stiff neck Lymph nodes are getting larger Can t swallow liquids, a lot of drooling, or can t open mouth wide due to throat pain Signs of dehydration, such as very dark urine or no urine, sunken eyes, dizziness Trouble breathing or noisy breathing Muffled voice New rash Other symptoms getting worse Prevention Here are steps you can take to help prevent an infection: Keep good hand washing habits. Don t have close contact with people who have sore throats, colds, or other upper respiratory infections. Don t smoke, and stay away from secondhand smoke. Stay up to date with of your vaccines. [id number] [employer]. [address] [place] [address]. All rights reserved. This information is not intended as a substitute for professional medical care. Always follow your healthcare professional's instructions. Follow Up Care 04/26/2023 00:56:20 With:Call Physician Referral Address:Unknown When:2-4 days [facility] 04-26-2023 Note Discharge Instructions Thank you for allowing [facility] to assist you with your healthcare needs. The following is important discharge information regarding your hospital visit. Diagnosis from Today's Visit Pharyngitis Sinus Pain/Congestion Sore throat - Adult What to Do Next Instructions from Your Care Team No qualifying data available. Post Acute Orders No qualifying data available. You Need to Schedule the Following Appointments Follow Up with Call Physician Referral When Within 2-4 days Allergies Omnicef Medications Please ask your primary doctor or pharmacist before taking any other medication not listed, including over the counter drugs, herbal medications, vitamins and or supplements as they may interact with your home medications. What How Much When Instructions Last Dose New amoxicillin (amoxicillin 250 mg/ 5 mL oral liquid) 10 Milliliter by mouth Three (3) times a day Duration: 10 Days Printed Prescription Please take this list to your next doctor s visit. Bring all medications you take, including over the counter medications, herbals and other supplements with you to your doctor s visit. Patients and families are reminded to discard old lists and to update any records with all medication providers or retail pharmacies. Education Materials Pharyngitis (Sore Throat), Report Pending Pharyngitis (sore throat) is often due to a virus. It can also be caused by streptococcus (strep), bacteria. This is often called strep throat. Both viral and strep infections can cause throat pain that is worse when swallowing, aching all over, headache, and fever. Both types of infections are contagious. They may be spread by coughing, kissing, or touching others after touching your mouth or nose. A test has been done to find out if you or your child have strep throat. Call this facility or your healthcare provider if you were not given your test results. If the test is positive for strep infection, you will need to take antibiotic medicines. A prescription can be called into your pharmacy at that time. If the test is negative, you probably have a viral pharyngitis. This does not need to be treated with antibiotics. Until you receive the results of the strep test, you should stay home from work. If your child is being tested, he or she should stay home from school. Home care Rest at home. Drink plenty of fluids so you won't get dehydrated. If the test is positive for strep, you or your child should not go to work or school for the first 2 days of taking the antibiotics. After this time, you or your child will not be contagious. You or your child can then return to work or school when feeling better. Use the antibiotic medicine for the full 10 days. Do not stop the medicine even if you or your child feel better. This is very important to make sure the infection is fully treated. It is also important to prevent medicine-resistant germs from growing. If you or your child were given an antibiotic shot, no more antibiotics are needed. Use throat lozenges or numbing throat sprays to help reduce pain. Gargling with warm salt water will also help reduce throat pain. Dissolve 1/2 teaspoon of salt in 1 glass of warm water. Children can sip on juice or a popsicle. Children 5 years and older can also suck on a lollipop or hard candy. Don't eat salty or spicy foods or give them to your child. These can irritate the throat. Other medicine for a child: You can give your child acetaminophen for fever, fussiness, or discomfort. In babies over 6 months of age, you may use ibuprofen instead of acetaminophen. If your child has chronic liver or kidney disease or ever had a stomach ulcer or GI bleeding, talk with your child s healthcare provider before giving these medicines. Aspirin should never be used by any child under 18 years of age who has a fever. It may cause severe liver damage. Other medicine for an adult: You may use acetaminophen or ibuprofen to control pain or fever, unless another medicine was prescribed for this. If you have chronic liver or kidney disease or ever had a stomach ulcer or GI bleeding, talk with your healthcare provider before using these medicines. Follow-up care Follow up with your healthcare provider or our staff if you or your child don't get better over the next week. When to seek medical advice Call your healthcare provider right away if any of these occur: Fever as directed by your healthcare provider. For children, seek care if: oYour child is of any age and has repeated fevers above 104 F (40 C). oYour child is younger than 2 years of age and has a fever of 100.4 F (38 C) for more than 1 day. oYour child is 2 years old or older and has a fever of 100.4 F (38 C) for more than 3 days. New or worsening ear pain, sinus pain, or headache Painful lumps in the back of neck Stiff neck Lymph nodes are getting larger Can t swallow liquids, a lot of drooling, or can t open mouth wide due to throat pain Signs of dehydration, such as very dark urine or no urine, sunken eyes, dizziness Trouble breathing or noisy breathing Muffled voice New rash Other symptoms getting worse Prevention Here are steps you can take to help prevent an infection: Keep good hand washing habits. Don t have close contact with people who have sore throats, colds, or other upper respiratory infections. Don t smoke, and stay away from secondhand smoke. Stay up to date with of your vaccines. 9526-2949 [employer]. [address] [place] [address], [place] [address]. All rights reserved. This information is not intended as a substitute for professional medical care. Always follow your healthcare professional's instructions. Additional Information VACCINATE! IT SAVES LIVES! Members of the community who have not yet received the COVID-19 vaccine and would like to receive it can visit one of [facility] vaccine clinics. There are many vaccine clinic locations within the [facility]. For locations and available times, please visit [email or web address] It is important to note that some COVID mobile vaccine clinics are held outdoors and may be canceled in rainy or stormy conditions. To learn more about pediatric vaccinations (ages 5-11), we invite you to visit the [facility] webpage. [email or web address] To learn more about the COVID-19 vaccine, we invite you to visit the CDC website for a list of frequently asked questions. https://www.cdc.gov/coronavirus/ 2019-ncov/vaccines/faq.html [employer] Patient Portal Access Instructions: Stay connected with your healthcare team and access your personal medical information anytime with the [employer] Patient Portal. If you would like a full copy of your medical records please contact the [facility] Medical Records Department Wednesday through Wednesday between 8a.m. and 4:30p.m. Please follow the directions below to access the portal: 1.Access the email account you provided upon registration to the hospital.2.Look for an invitation email from [facility].3.Open the email and access the invitation link: Accept Invitation to [employer]4.Fill in the required solo to create your account. Sign into [email or web address] with your username and password that you created in the above steps to stay up to date. You can then view a summary of results, a summary of your visits, and the ability to download your summaries to your computer or send the information securely to a physician. Remember that your healthcare information is confidential, so carefully consider who you will allow to register on the [employer] Patient Portal for access to your information. You can also access the [employer] Patient Portal on the [employer] nandini. Simply click on "Health Records" under "Health Data" and then click on the [employer] logo. HOW TO SAFELY DISPOSE OF PRESCRIPTION MEDICATIONS Please use one of the following methods to safely dispose of your unused medications. 1.Use a drug disposal kit: the drug disposal pouch allows you to safely discard your old and unused drugs. Ask your nurse to give you one when you are discharged.2.Visit a local take-back location: Many local pharmacies and police departments have programs that collect old and unwanted prescription drugs. Call your local pharmacy or go to http://WorkingPoint.Elevate HR/9D8Mo6p to find one close to you.3.Make use of household items: Use cat litter or old coffee grounds to dispose medications if other options are not available. Mix your drugs with these household products, seal them in an airtight container and throw it into the garbage. Call [facility]: [phone] to be sure your drugs can be disposed of in this way. Some medicines may require a different approach.4.Never flush your medications down the toilet. IF YOU HAVE BEEN PRESCRIBED AN OPIOIDS FOR PAIN If you have been prescribed an opioid (such as hydrocodone, oxycodone or morphine), it is critical to understand the possible side effects and risks of opioid pain medications. Even when taken as directed, opioids can have several side effects including: Tolerance, meaning you might need to take more of a medication for the same pain relief. Nausea, vomiting and/or constipation. Sleepiness, dizziness, dry mouth, confusion, depression or itching. Physical dependence, meaning you have withdrawal symptoms when a medication is stopped ? this can develop within a few days. KNOW YOUR RESPONSIBILITIES It is important to know exactly how much and how often to take the opioid pain medications you are prescribed. Never take opioids in higher amounts or more often than prescribed. Do not combine opioids with alcohol or other drugs that cause drowsiness, such as benzodiazepines, also known as benzos, including diazepam and alprazolam, muscle relaxants or sleep aids. Never sell or share prescription opioids. This is illegal. Store opioids in a secure place and out of reach of others (including children, family, friends and visitors). The last page(s) of this document has been signed and retained as a CHART COPY Signatures Patient Education Materials Pharyngitis, Report Pending Medication Leaflets My discharge plan and instructions have been reviewed and explained to me and I,LESLIE THOMAS understand my current condition and have read and understand these discharge instructions. I have received a written copy of the plan/instructions. If I have questions, I am aware that I should contact my doctor. Patient/Municipal Court Magistrate Signature: Date/Time: Relationship to Patient: Witness Name/Signature: Date/Time: [facility] 03-25-2023 Procedure note [facility] 03-25-2023 Procedure note [facility] 01-17-2023 Note HNO ID: [id number] Author: Marie Huff PA-C Service: ? Author Type: Physician Safety Manager Type: Progress Notes Filed: 01/17/2023 3:22 PM Note Text: Subjective Leslie Thomas is a 22 year old male with a past medical history of migraine, asthma, and eosinophilic esophagitis who presents [facility] today for evaluation of cough and nasal congestion, and shortness of breath for the past 3 weeks. He states that he does have a history of asthma but usually only needs his inhaler a few times a year. He states that he has been using it much more often over the past couple weeks. He endorses wheezing. He has not had any fevers. Review of Systems Constitutional: Negative for chills, diaphoresis and fever. HENT: Positive for congestion. Negative for ear pain and sore throat. Eyes: Negative for discharge and redness. Respiratory: Positive for cough, shortness of breath and wheezing. Skin: Negative for rash and wound. Neurological: Negative for weakness and headaches. All other systems reviewed and are negative. Objective BP 131/83 Pulse 92 Temp 36.1 ?C (97 ?F) Resp 16 Ht 182.9 cm (6') Wt 86.6 kg (191 lb) SpO2 96% BMI 25.90 kg/m? Physical Exam Vitals reviewed. Constitutional: General: He is not in acute distress. Appearance: Normal appearance. He is normal weight. He is not ill-appearing or toxic-appearing. Comments: The patient appears to be non-toxic, in no acute distress, and resting comfortably on the table. HENT: Head: Normocephalic and atraumatic. Eyes: Extraocular Movements: Extraocular movements intact. Cardiovascular: Rate and Rhythm: Normal rate and regular rhythm. Heart sounds: Normal heart sounds. No murmur heard. No friction rub. No gallop. Pulmonary: Effort: Pulmonary effort is normal. Breath sounds: Wheezing present. Musculoskeletal: General: Normal range of motion. Cervical back: Normal range of motion. Skin: General: Skin is warm and dry. Findings: No erythema or rash. Neurological: General: No focal deficit present. Mental Status: He is alert and oriented to person, place, and time. Mental status is at baseline. Psychiatric: Mood and Affect: Mood normal. Behavior: Behavior normal. Thought Content: Thought content normal. Assessment and Plan Mild diffuse wheezing heard upon auscultation of the lungs. Suspect patient's symptoms are due to acute upper respiratory infection and asthma exacerbation. As patient's symptoms have been persistent for several weeks, I feel he would benefit from a course of antibiotics but patient counseled regarding suspected diagnosis and given prescriptions for Augmentin and prednisone. Patient also given refills of his Flonase and Xyzal. Advised to follow-up with his primary care provider as needed for any new or worsening symptoms. ASSESSMENT/PLAN: 1. Persistent cough - ICD9: 786.2, ICD10: R05.3 (primary diagnosis) - AMOXICILLIN 250 MG-POTASSIUM CLAVULANATE 62.5 MG/5 ML ORAL SUSPENSION - PREDNISOLONE SODIUM PHOSPHATE 15 MG/5 ML (3 MG/ML) ORAL SOLUTION 2. Nasal congestion - ICD9: 478.19, ICD10: R09.81 - LEVOCETIRIZINE 5 MG TABLET - FLUTICASONE PROPIONATE 50 MCG/ACTUATION NASAL SPRAY,SUSPENSION 3. SOB (shortness of breath) - ICD9: 786.05, ICD10: R06.02 - PREDNISOLONE SODIUM PHOSPHATE 15 MG/5 ML (3 MG/ML) ORAL SOLUTION Medical Decision Making: Problems: Low: Acute, uncomplicated illness or injury Risk: Minimal: Minimal risk from testing/treatment Moderate: Drug management Medical Decision Making Level: 3 - Low I spent a total of 20 minutes on the date of the service which included preparing to see the patient, [id number] patient care, completing clinical documentation, performing a medically appropriate examination, counseling and educating the patient/family/caregiver, and ordering medications, tests, or procedures. [facility] 11-23-2022 Note HNO ID: [id number] Author: RT John(Maira) Service: Nuclear Medicine Author Type: Technologist Type: Progress Notes Filed: 11/23/2022 5:37 PM Note Text: Radiology Service Progress Note PATIENT NAME: Leslie hTomas DATE OF SERVICE: November 23, 2022 TIME: 5:31 PM PATIENT IDENTITY VERIFICATION COMPLETED USING TWO (2) IDENTIFIERS: Name and Date of confirmed by patient verbally. FALL SCREENING: Has the patient had 2 falls in the last year or 1 fall with injury or currently using an Ambulatory Assistive Device (Walker, Cane, Wheelchair, Crutches, etc.)? No PATIENT GENDER DATA: Male PATIENT RELEVANT IMPLANT DATA REVIEWED: Not Applicable RADIOLOGY DEPARTMENT: General X-ray: Exam(s) Completed: Upper Extremity X-Ray(s): Hand, right PERIPHERAL IV DATA: Not applicable SIGNED BY: RT John(Maira) November 23, 2022 5:[address] [facility] 11-23-2022 History of Present illness Narrative Radiology Service Progress Note PATIENT NAME: Leslie Thomas DATE OF SERVICE: November 23, 2022 TIME: 5:31 PM PATIENT IDENTITY VERIFICATION COMPLETED USING TWO (2) IDENTIFIERS: Name and Date of confirmed by patient verbally. FALL SCREENING: Has the patient had 2 falls in the last year or 1 fall with injury or currently using an Ambulatory Assistive Device (Walker, Cane, Wheelchair, Crutches, etc.)? No PATIENT GENDER DATA: Male PATIENT RELEVANT IMPLANT DATA REVIEWED: Not Applicable RADIOLOGY DEPARTMENT: General X-ray: Exam(s) Completed: Upper Extremity X-Ray(s): Hand, right PERIPHERAL IV DATA: Not applicable SIGNED BY: RT John(R) November 23, 2022 5:31 PM documented in this encounter [facility] 11-21-2022 Note HNO ID: [id number] Author: Jose Francisco Frey MD Service: ? Author Type: Physician Type: Progress Notes Filed: 11/21/2022 12:31 PM Note Text: Patient presents with: Hand Injury: R hand x2 months HPI: Right hand pain: Duration: injured on a punching machine 2 months ago, flares when he attempts to punch with it again. Re-injured yesterday with 1 punch. Location: right 2nd knuckle Character: sharp to touch, sore with making a fist, tender bump on the knuckle Radiation: no Aggravating: punching, touching Relieving: rest Pain relievers: tried ibuprofen and ice Associated: swelling Pertinent negatives: Denies numbness PAST MEDICAL HISTORY Diagnosis Date Asthma Bone tumor right leg Eczema Eosinophilic esophagitis Esophageal stricture Status post balloon dilatation of esophageal stricture MEDICATIONS: famotidine (PEPCID) 20 mg tablet Take 1 tablet by mouth at bedtime as needed. fluticasone (FLOVENT HFA) 220 mcg/actuation inhaler 2 Puffs twice daily. EPINEPHrine (EPIPEN 2-SHERLY) 0.3 mg/0.3 mL auto-injector Inject as directed to the anterior thigh as directed by symptoms in the allergy action plan. If used the patient must seek emergency medical care. May repeat a second dose after 5 minutes for failure to respond or worsening symptomatology while awaiting EMS. Dispensed to twin packs with trainers. Dispense generic Epipens. EPINEPHrine (AUVI-Q) 0.3 mg/0.3 mL auto-injector Inject to the anterior thigh as directed by signs and symptoms in the allergy action plan. If used the patient needs to seek emergency medical care. May repeat a second dose after 5 minutes for failure respond or worsening symptoms. Dispense 2 twin packs with trainers fluticasone (FLONASE) 50 mcg/actuation nasal spray Use 2 Sprays in each nostril once daily. Levocetirizine (XYZAL) 5 mg tablet Take 1 tablet by mouth once daily as needed (for itching, sneezing or runny nose. ). rizatriptan (MAXALT CARPET TILE LAYER) 5 mg disintegrating tablet For a severe migraine take 1 tablet by mouth. If no improvement in 2 hours may take a second tablet. May take 2 doses of Maxalt in one day, 4 doses and 2 consecutive days, no more than 8 doses per month. albuterol HFA (PROVENTIL HFA, VENTOLIN HFA) 90 mcg/actuation inhaler Inhale 2 Puffs as instructed every 4 hours as needed. Use with spacer. ALLERGIES: ALLERGIES Allergen Reactions Other Clint-3s Anaphylaxis Tree nuts Environmental [Othe* Other: See Comments Cats Cockroach dustmites molds (September through May) trees (September, October and November) grasses (November and December) weeds (February, March and April) Nut - Unspecified Anaphylaxis Omnicef [Cefdinir] Hives Tree Nuts [Other] Anaphylaxis Throat swells up VITALS: BP 122/84 Pulse 100 Temp 36.6 ?C (97.8 ?F) Resp 18 Wt 83.7 kg (184 lb 9.6 oz) SpO2 99% BMI 25.90 kg/m? PE: Pleasant, in no acute distress. HAND: right. Mild erythema and edema of the distal second metacarpal. Full finger range of motion. Normal index finger strength against resistance. Tender second MCP joint/2nd metacarpal head. Nontender fingers, other metacarpals, and wrist. ASSESSMENT/PLAN: 1. Hand pain, right - ICD9: 729.5, ICD10: M79.641 Possible second metacarpal fracture with unknown healing status. - XR HAND GENERAL 3V PA/LAT/OBL RIGHT -he will return Wednesday evening for x-ray. Orthopedic consult recommended. He will follow-up with orthopedics if there is a fracture, rest the hand x-ray is benign. Jose Francisco Frey MD [facility] 01-09-2022 Hospital Discharge instructions Patient Education 01/09/2022 18:19:54 9- AO ED Rabies Follow-up Vaccination BRAD(CUSTOM) [facility] Rabies Follow-Up Vaccination Information Sheet SUMMARY After initial vaccination is received in ER (day 0), follow-up vaccinations are given on days 3, 7 and 14 for a total of 4 doses. You should have received a prescription that has the information for follow-up vaccinations (medication and dates). Bring this prescription with you wherever you choose to receive your follow-up vaccinations. OPTIONS FOR FOLLOW-UP VACCINATIONS Call your family physician to set up appointments to receive your follow-up rabies vaccinations. OR Call the [facility] at to schedule your follow-up vaccination appointments. Hours: 8a-4:30p, Wednesday through Wednesday OR Call [facility] to schedule your follow-up vaccination appointments. 01/09/2022 18:19:41 Animal Bites and Scratches Animal Bites and Scratches You may need a tetanus booster. Most bites and scratches from household pets are nothing to worry about. But some bites or scratches can be serious. Others may become infected or pose the risk of rabies. For that reason, it's best to seek medical treatment for all but the most minor bites. Report severe animal bites to animal control or your local health department. When to go to the emergency room (ER) A bite that barely breaks the skin usually isn't cause for concern. But seek emergency medical care if you: Have a deep puncture wound or badly torn skin Have redness, swelling, or warmth near the wound Think you may have a broken bone or other serious injury The attack was unprovoked and you don't know the animal (rabies must be ruled out) Are bitten by a domestic cat or a wild animal, such as a skunk, raccoon, or bat Do not have a spleen or have a weak immune system What to expect in the ER The wound will be carefully cleaned and inspected. X-rays may be taken if deep damage is suspected or to make sure a small piece of the animal's tooth is not left embedded in the wound. Although not common, infection can occur, especially if you have a cat bite, deep wound, or weak immune system. You may be given antibiotics to help prevent this. You may be given a tetanus shot if you haven't had one in the past 5 years. If rabies is a concern, you may be given shots to protect you. If serious tissue or joint damage has been done, you may be referred to a plastic or orthopedic surgeon. Follow-up care You will likely need to see your doctor within a day or two of receiving emergency medical treatment. In the meantime, watch for signs of infection. These include: Fever of 100.4 F (38 C) or higher, or as directed by your healthcare provider Swelling Redness Pus draining from the wound [id number] [employer]. [address] [place], [place] [address]. All rights reserved. This information is not intended as a substitute for professional medical care. Always follow your healthcare professional's instructions. Follow Up Care 01/09/2022 17:49:27 With:Follow up with primary care provider Address:Unknown When:2-4 days [facility] 01-09-2022 Note Discharge Instructions Thank you for allowing [facility] to assist you with your healthcare needs. The following is important discharge information regarding your hospital visit. Diagnosis from Today's Visit Animal bite wound Rabies vaccination given Skin problem What to Do Next Instructions from Your Care Team No qualifying data available. Post Acute Orders No qualifying data available. You Need to Schedule the Following Appointments Follow Up with Follow up with primary care provider When Within 2-4 days Allergies Omnicef Immunizations This Visit Given Vaccine Daterabies vaccine, purified chick embryo 01/09/2022 Medications Please ask your primary doctor or pharmacist before taking any other medication not listed, including over the counter drugs, herbal medications, vitamins and or supplements as they may interact with your home medications. Please take this list to your next doctor s visit. Bring all medications you take, including over the counter medications, herbals and other supplements with you to your doctor s visit. Patients and families are reminded to discard old lists and to update any records with all medication providers or retail pharmacies. Education Materials [facility] Rabies Follow-Up Vaccination Information Sheet SUMMARY After initial vaccination is received in ER (day 0), follow-up vaccinations are given on days 3, 7 and 14 for a total of 4 doses. You should have received a prescription that has the information for follow-up vaccinations (medication and dates). Bring this prescription with you wherever you choose to receive your follow-up vaccinations. OPTIONS FOR FOLLOW-UP VACCINATIONS Call your family physician to set up appointments to receive your follow-up rabies vaccinations. OR Call the [facility] at to schedule your follow-up vaccination appointments. Hours: 8a-4:30p, Wednesday through Wednesday OR Call [facility] to schedule your follow-up vaccination appointments. Animal Bites and Scratches You may need a tetanus booster. Most bites and scratches from household pets are nothing to worry about. But some bites or scratches can be serious. Others may become infected or pose the risk of rabies. For that reason, it's best to seek medical treatment for all but the most minor bites. Report severe animal bites to animal control or your local health department. When to go to the emergency room (ER) A bite that barely breaks the skin usually isn't cause for concern. But seek emergency medical care if you: Have a deep puncture wound or badly torn skin Have redness, swelling, or warmth near the wound Think you may have a broken bone or other serious injury The attack was unprovoked and you don't know the animal (rabies must be ruled out) Are bitten by a domestic cat or a wild animal, such as a skunk, raccoon, or bat Do not have a spleen or have a weak immune system What to expect in the ER The wound will be carefully cleaned and inspected. X-rays may be taken if deep damage is suspected or to make sure a small piece of the animal's tooth is not left embedded in the wound. Although not common, infection can occur, especially if you have a cat bite, deep wound, or weak immune system. You may be given antibiotics to help prevent this. You may be given a tetanus shot if you haven't had one in the past 5 years. If rabies is a concern, you may be given shots to protect you. If serious tissue or joint damage has been done, you may be referred to a plastic or orthopedic surgeon. Follow-up care You will likely need to see your doctor within a day or two of receiving emergency medical treatment. In the meantime, watch for signs of infection. These include: Fever of 100.4 F (38 C) or higher, or as directed by your healthcare provider Swelling Redness Pus draining from the wound [id number] [employer]. [address] [place] [address], [place] [address]. All rights reserved. This information is not intended as a substitute for professional medical care. Always follow your healthcare professional's instructions. Additional Information VACCINATE! IT SAVES LIVES! Members of the community who have not yet received the COVID-19 vaccine and would like to receive it can visit one of [facility] vaccine clinics. There are many vaccine clinic locations within the [facility]. For locations and available times, please visit [email or web address]. It is important to note that some COVID mobile vaccine clinics are held outdoors and may be canceled in rainy or stormy conditions. To learn more about pediatric vaccinations (ages 5-11), we invite you to visit the [facility] [facility] webpage. [email or web address] To learn more about the COVID-19 vaccine, we invite you to visit the [employer] website for a list of frequently asked questions. [email or web address] [facility] Patient Portal Access Instructions: Stay connected with your healthcare team and access your personal medical information anytime with the [employer] Patient Portal. If you would like a full copy of your medical records please contact the [facility] Medical Records Department Wednesday through Wednesday between 8a.m. and 4:30p.m. Please follow the directions below to access the portal: 1.Access the email account you provided upon registration to the hospital.2.Look for an invitation email from [facility].3.Open the email and access the invitation link: Accept Invitation to [employer]4.Fill in the required solo to create your account. Sign into [email or web address] with your username and password that you created in the above steps to stay up to date. You can then view a summary of results, a summary of your visits, and the ability to download your summaries to your computer or send the information securely to a physician. Remember that your healthcare information is confidential, so carefully consider who you will allow to register on the [employer] Patient Portal for access to your information. You can also access the [employer] Patient Portal on the [employer] nandini. Simply click on "Health Records" under "Health Data" and then click on the [employer] logo. HOW TO SAFELY DISPOSE OF PRESCRIPTION MEDICATIONS Please use one of the following methods to safely dispose of your unused medications. 1.Use a drug disposal kit: the drug disposal pouch allows you to safely discard your old and unused drugs. Ask your nurse to give you one when you are discharged.2.Visit a local take-back location: Many local pharmacies and police departments have programs that collect old and unwanted prescription drugs. Call your local pharmacy or go to http://WorkingPoint.Elevate HR/1N1Jn5d to find one close to you.3.Make use of household items: Use cat litter or old coffee grounds to dispose medications if other options are not available. Mix your drugs with these household products, seal them in an airtight container and throw it into the garbage. Call [facility]: [phone] to be sure your drugs can be disposed of in this way. Some medicines may require a different approach.4.Never flush your medications down the toilet. IF YOU HAVE BEEN PRESCRIBED AN OPIOIDS FOR PAIN If you have been prescribed an opioid (such as hydrocodone, oxycodone or morphine), it is critical to understand the possible side effects and risks of opioid pain medications. Even when taken as directed, opioids can have several side effects including: Tolerance, meaning you might need to take more of a medication for the same pain relief. Nausea, vomiting and/or constipation. Sleepiness, dizziness, dry mouth, confusion, depression or itching. Physical dependence, meaning you have withdrawal symptoms when a medication is stopped ? this can develop within a few days. KNOW YOUR RESPONSIBILITIES It is important to know exactly how much and how often to take the opioid pain medications you are prescribed. Never take opioids in higher amounts or more often than prescribed. Do not combine opioids with alcohol or other drugs that cause drowsiness, such as benzodiazepines, also known as benzos, including diazepam and alprazolam, muscle relaxants or sleep aids. Never sell or share prescription opioids. This is illegal. Store opioids in a secure place and out of reach of others (including children, family, friends and visitors). The last page(s) of this document has been signed and retained as a CHART COPY Signatures Patient Education Materials 9- AO ED Rabies Follow-up Vaccination BRAD(CUSTOM) Animal Bites and Scratches Medication Leaflets My discharge plan and instructions have been reviewed and explained to me and I,WILLIAM LESLIE D understand my current condition and have read and understand these discharge instructions. I have received a written copy of the plan/instructions. If I have questions, I am aware that I should contact my doctor. Patient/Municipal Court Magistrate Signature: Date/Time: Relationship to Patient: Witness Name/Signature: Date/Time: [facility] 09-23-2021 Instructions Sabra Mccarthy MD - 09/23/2021 9:45 AM EDT 1) start omeprazole also called prilosec 40 mg twice daily. Take this on an empty stomach and eat 30-60 minutes later 2) Schedule your upper endoscopy with anesthesia 8 weeks after starting the prilosec. We want to do 4 biopsies in your distal esophagus and 4 biopsies in your proximal/mid esophagus. We will want to dilate you if needed 3) Get your esophagram done before the upper endoscopy (at least 3 days before, but you don't need to wait, you can schedule and get it done at your earliest convenience) 4) Come back to see me 1 week after your endosocpy. [phone] documented in this encounter [facility] 09-23-2021 History of Present illness Narrative VIRTUAL VISIT NEW PATIENT NAME: Leslie Guerra [facility] NO: [id number] DATE: 09/17/2021 REASON FOR VISIT Leslie Thomas [id number] 2000 has requested a video telemedicine initial consultation at the request of Self. Leslie Thomas verbalized informed consent to proceed with the video telemedicine initial consultation. Leslie Thomas was informed that the details of this video visit would be recorded as part of their electronic medical record. My recommendations will be conveyed to the consulting provider by way of shared electronic medical record, fax, or U.S. Mail. Patient location at time of call: home Callback number: [phone] Additional encounter participants and relationship: mother - Tamica PRESENTING COMPLAINT Leslie Thomas is a 21 year old male with nut allergies, seasonal allergies, migraines, asthma, Eosinophilic Esophagitis, presenting to establish care for Eosinophilic Esophagitis. 2017 diagnosed with Eosinophilic Esophagitis - dysphagia, choking. Mild symptoms started in 2nd grade and got worse - occasional heartburn, food triggers - denies regurgitation - needs water with eating - no food impactions or choking recently. Will slow down mid chest - not avoiding any foods currently except tree nuts (anaphylaxis) Eosinophilic Esophagitis Risk factors On nothing Seasonal allergies: Yes Asthma: Yes Eczema/atopic dermatitis: yes Allergic rhinitis: yes Food allergies: yes - tree nuts Treatment - tried budeonside but stomach aches. Tried flovent but not consistently taking No consistent elimination diet Tried prilosec but not consistently taking (had to open capsule and didn't taste good but now can take pills) Had vomiting as an and stopped at age 4. But no issues with weight or eating at that time Prior GI Workup EGD 07/2019 PATH CONVERTED FINAL DIAGNOSIS 1. Duodenal bulb, biopsy (A) - Extensive gastric surface cell metaplasia associated with regenerative epithelial changes. - Focal active duodenitis. 2. Distal and proximal esophagus, biopsies (B, C) - Eosinophil-rich esophagitis consistent with eosinophilic esophagitis, with greater than 50 eosinophils per high-power field. egd 10/2018 PATH CONVERTED FINAL DIAGNOSIS 1. Duodenum, bulb, biopsy (A) - Superficial fragments of small bowel mucosa with no pathologic diagnostic abnormality. 2. Esophagus, distal, biopsy (B) - Squamous mucosa with intraepithelial eosinophils (focally over 50 eosinophils per high power field). 3. Esophagus, proximal, biopsy (C) - Squamous mucosa with intraepithelial eosinophils (focally over 50 eosinophils per high power field). SS/vadim 10/26/2018 EGD 06/2018 PATH 1. Duodenum, bulb, biopsy (A) - Duodenal mucosa with mild reactive epithelial changes and a minimal patchy increase in intraepithelial lymphocytes with intact villous architecture. - See comment. 2. Esophagus, distal, biopsy (B) - Squamous mucosa with eosinophilic esophagitis pattern of injury with reactive epithelial changes and prominent increase in intraepithelial eosinophils (focally greater than 50 eosinophiles per high power field). 3. Esophagus, proximal, biopsy (C) - Ulcerated fragments of squamous mucosa with eosinophilic esophagitis pattern of injury with reactive epithelial changes and patchy increase in intraepithelial eosinophils (focally greater than 50 eosinophiles per high power field). /moises/07/01/18 EGD 03/2018 - not on medications or elimination diet PATH 1. Duodenum, biopsy (A) - Duodenal mucosa with no pathologic diagnostic abnormality; negative for celiac disease, intraepithelial lymphocytosis and granulomas. 2. Duodenum, bulb, biopsy (B) - Duodenal mucosa with no pathologic diagnostic abnormality; negative for celiac disease, intraepithelial lymphocytosis and granulomas. 3. Stomach, biopsy (C) - Gastric antral body-type mucosa with mild chronic inactive gastritis; see comment. 4. Esophagus, distal, biopsy (D) - Mild reactive squamous mucosa with scattered intraepithelial eosinophils (focally less than 10 eosinophils per high-power field). 5. Esophagus, proximal, biopsy (E) - Mild reactive squamous mucosa with scattered intraepithelial eosinophils (focally less than 15 eosinophils per high-power field). ARFITA/sukhdev 03/23/2018 EGD 09/2017 PATH 1. Duodenum, biopsy (A) - Duodenal mucosa with no diagnostic alteration. 2. Duodenal bulb, biopsy (B) - Focal active duodenitis with gastric foveolar metaplasia. 3. Stomach, biopsy (C) - Antral mucosa with mild chronic inflammation; separate fundic mucosa with no diagnostic alteration. - See comment. 4. Distal esophagus, biopsy (D) - Reactive squamous mucosa with increased intraepithelial eosinophils (>100 eosinophils in a single high power field). 5. Proximal esophagus, biopsy (E) - Squamous mucosa with reactive changes and increased intraepithelial eosinophils (>100 eosinophils in a single high power field). /moises/09/03/17 EGD 07/2017 PATH 1. Distal esophagus, biopsy (A) - Squamous mucosa with reactive epithelial changes and increased intraepithelial eosinophils (up to 53 eosinophils per high magnification field); see comment. 2. Mid esophagus, biopsy (B) - Squamous mucosa with reactive epithelial changes and increased intraepithelial eosinophils (up to 58 eosinophils per high magnification field); see comment. ALONDRA/mahendra 07/09/2017 EGD 04/2017 PATH 1. Duodenum, biopsy (A) - Duodenal mucosa with no pathologic diagnostic abnormality; negative for celiac disease, granulomas and parasites. 2. Stomach, biopsy (B) - Gastric oxyntic-type mucosa with no pathologic diagnostic abnormality; see comment. 3. Esophagus, distal, biopsy (C) - Mild reactive squamous mucosa with intraepithelial eosinophils (focally over 50 eosinophils per high-power field). 4. Esophagus, proximal, biopsy (D) - Mild reactive squamous mucosa with intraepithelial eosinophils (focally up to 25 eosinophils per high-power field). RAFITA/sukhdev 04/30/2017 EGD 02/2017 Impression: - A ring or congenital esophageal stenosis or stricture seen at about 15-17 cm from incisors. Both GIF-190 and Neoscope could not be passed through the ring. Biopsies obtained just above the ring. PATH Proximal esophagus above Schatzki ring, biopsy Hyperplastic squamous epithelium with reactive epithelial changes, scattered intraepithelial eosinophils and lymphocytes, and focal erosion. - See comment. COMMENT Sections demonstrate squamous epithelium with basal cell hyperplasia, spongiosis, focal parakeratosis, and rare dyskeratotic keratinocytes (Civatte bodies). Scattered intraepithelial eosinophils are present (focally up to 16 eosinophils in one high-magnification field), as well as scattered intraepithelial lymphocytes and focal erosion. The histologic findings are nonspecific, and the presence of intraepithelial eosinophils may be seen with gastroesophageal reflux and/ or eosinophilic esophagitis, among others. CURRENT MEDICATIONS Current Outpatient Medications Medication Sig Dispense Refill mupirocin (BACTROBAN) 2 % ointment Apply 1 application to affected area three times daily. 30 g 0 fluticasone (FLOVENT HFA) 220 mcg/actuation inhaler 2 Puffs twice daily. 3 Inhaler 5 Omeprazole (PRILOSEC) 40 mg capsule Take 1 capsule by mouth once daily. Open capsule and sprinkle granules on small amount of applesauce or pudding and swallow 90 capsule 0 EPINEPHrine (EPIPEN 2-SHERLY) 0.3 mg/0.3 mL auto-injector Inject as directed to the anterior thigh as directed by symptoms in the allergy action plan. If used the patient must seek emergency medical care. May repeat a second dose after 5 minutes for failure to respond or worsening symptomatology while awaiting EMS. Dispensed to twin packs with trainers. Dispense generic Epipens. 4 Each 3 month supply EPINEPHrine (AUVI-Q) 0.3 mg/0.3 mL auto-injector Inject to the anterior thigh as directed by signs and symptoms in the allergy action plan. If used the patient needs to seek emergency medical care. May repeat a second dose after 5 minutes for failure respond or worsening symptoms. Dispense 2 twin packs with trainers 2 Each 1 fluticasone (FLONASE) 50 mcg/actuation nasal spray Use 2 Sprays in each nostril once daily. 3 Bottle 3 Levocetirizine (XYZAL) 5 mg tablet Take 1 tablet by mouth once daily as needed (for itching, sneezing or runny nose. ). 90 tablet 3 albuterol HFA (PROVENTIL HFA, VENTOLIN HFA) 90 mcg/actuation inhaler Inhale 2 Puffs as instructed every 4 hours as needed. Use with spacer. 3 Inhaler 0 rizatriptan (MAXALT CARPET TILE LAYER) 5 mg disintegrating tablet For a severe migraine take 1 tablet by mouth. If no improvement in 2 hours may take a second tablet. May take 2 doses of Maxalt in one day, 4 doses and 2 consecutive days, no more than 8 doses per month. 20 tablet 0 ondansetron orally disintegrating (ZOFRAN ODT) 4 mg disintegrating tablet One tablet po at the onset of a migraine headache. 20 tablet 0 No current facility-administered medications for this visit. Other Clint-3s, Environmental [Other], Nut - Unspecified, Omnicef [Cefdinir], and Tree Nuts [Other] PAST MEDICAL HISTORY PAST MEDICAL HISTORY Diagnosis Date Asthma Bone tumor right leg Eczema Eosinophilic esophagitis Esophageal stricture Status post balloon dilatation of esophageal stricture PAST SURGICAL HISTORY PAST SURGICAL HISTORY Procedure Laterality Date CIRCUMCISION,CLAMP, FAMILY HISTORY FAMILY HISTORY Problem Relation Age of Onset Asthma Mother other (hypothyroid) Mother None Father None Maternal Grandmother None Maternal Grandfather other (aneusym) Paternal Grandmother 40 Cancer Paternal Grandfather Colon SOCIAL HISTORY Social History Tobacco Use Smoking status: Never Smoker Smokeless tobacco: Never Used Substance Use Topics Alcohol use: No Drug use: No ROS EyesNegative for vision changes, diplopia or epiphora. Ears, Mouth, nose, throat:No problems Cardiovascular: No Problems Respiratory: Negative for cough, wheezing and shortness of breath Gastrointestinal : As per HPI Genitourinary: Negative Musuloskeletal: Normal Integumentary: no rashes, lesions, or jaundice Neurological: No history of neurologic problems Endocrine: Negative for cold or heat intolerance, polyuria, polydipsia and goiter. Psychiatric: Cooperative and agreeable Allergic/ Immunologic: as per HPI All others negative PHYSICAL EXAMINATION General Normal, healthy, cooperative, in no acute distress Able to interact well. Psych ORIENTATION: normal to time place, person and situation Mood/Affect: AFFECT AND MOOD: Normal Head/Neuro Normal size and shape Facial appearance normal Pulmonary respiratory effort normal Skin abnormal lesions not visualized Motor patient seen sitting with Normal appearing strength and coordination Assessment IMPRESSION PLAN Leslie Thomas is a 21 year old male with nut allergies, seasonal allergies, migraines, asthma, Eosinophilic Esophagitis, presenting to establish care for Eosinophilic Esophagitis. Eosinophilic Esophagitis Dysphagia, esophageal Heartburn Esophageal stenosis - diagnosed in 2017. 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 Has tried flovent, budesonide (stomach aches), proton pump inhibitor in past but nothing consistently - discussed pathophysiology of Eosinophilic Esophagitis, diagnosis and treatment options with risks/benefits - patient opts for proton pump inhibitor and we will do EGD in 8 weeks. Given history of strictures and dilations, will also do an esophagram - patient prefers EGD with anesthesia I spent a total of 60 minutes on the date of the service which included preparing to see the patient, [id number] patient care, completing clinical documentation, performing a medically appropriate examination, counseling and educating the patient/family/caregiver and ordering medications, tests, or procedures. Sabra Mccarthy MD September 23, 2021 9:42 AM documented in this encounter [facility] Evaluation + Plan note No data available for this section [facility] Evaluation note Diagnosis Eosinophilic esophagitis- Primary Esophageal dysphagia Dysphagia, pharyngoesophageal phase Heartburn Esophageal stenosis Stricture and stenosis of esophagus [facility] Diagnosis Onset Date Resolution Status Eosinophilic esophagitis chr onic [facility] Work Phone: Evaluation note* Diagnosis Hand pain, right Pain in limb [facility] Author Len Zaragoza [facility] March 25, 2023 6:33am Note Date/Time March 25, 2023 6:33am [facility] Medical Records Department [address] [place] [address] History & Physical Exam 03/25/23 0633 MR#: [id number] Acct: [id number] Name: LESLIE THOMAS Rep #:[id number] : 2000 22 From: Len Zaragoza DO PCP: Dr. Rohith Lopez MD Status: [facility] Location: [place] [id number] History and Physical Date of Admission: 03/25/23 LESLIE THOMAS, is a 22 M who presents to the office today for [facility] consulted 2017 for dysphagia persistent for one year. Noting concurrent diagnoses of eczema and asthma. ? EGD 02.25.17 noting Schatzki ring with increased eosinophils count. ? Start prednisolone taper then Pulmicort with Splenda slurry ? Upper GI 03.15.17 narrowing of esophagus. No reflux ? Continue/Start slurry and start PPI ? EGD 04.29.17 two strictures 15cm and 25cm from incisors. Pathology indicative of EOE. ? Esophagram 04.29.17 without acute/chronic finding. ? Leslie has had multiple EGDs with pathology and esophagrams showing esophageal strictures and ongoing EOE. Therapy has remained the same through treatment. ? EGD 08.03.20 mild esophageal narrowing at 15 [id number] with dilationperformed; erythematous duodenal bulb. *BGI established 12.08.22 he is not currently maintained on medication; has attempted budesonide inhaler and slurry and anti-acid medication historically and does not recall good results but did not take them consistently. Currently he is having dysphagia with medication; but no acute episodes of choking. Notes a slowing of bolus passage with dryer/thicker foods. Most recent dilation approximately 2 years prior. Does report asthma which is activity induced; does not recall pulmonology workup. ROS Const Constitutional: No anorexia, fatigue, fever(s), weight change or sleep problems Eyes Eyes: No change in vision ENT ENT: No abnormal hearing, difficulty swallowing, mouth lesions, tongue swelling or throat swelling Resp Respiratory: No cough or shortness of breath Cardio Cardiology: No chest pain at rest, chest pain with exertion, shortness of breathor dyspnea on exertion Gastro GI: No difficulty swallowing Genitourinary Male: No difficulty urinating or burning urination Musc Musculoskeletal: No joint pain, joint swelling, muscle weakness or decreased muscle mass Skin Skin: No hair loss in leg, yellowing of the eye, itchy eyes, rash, skin ulcer orskin swelling Neuro Neurology: No abnormal hearing, abnormal movements, confusion, unsteady gait/balance or memory loss Psych Psychiatric: No anxiety, No confusion and No memory loss Endo Endocrine: No fatigue or weight change Aller/Imm Allergy/Immunologic: No itchy eyes, throat swelling or tongue swelling Andrew/Lymp Hematologic/Lymphatic: No easy bleeding, easy bruising or enlarged lymph nodes Exam Const General: cooperative and comfortable Nutritional Appearance: average body habitus and well nourished [facility] Head: normal to inspection Ears: hearing grossly normal bilaterally Nose: external nose normal Face and sinus: normal facial exam Mouth: oral mucosae normal Throat: posterior oropharynx normal Eyes General: appearance normal, both eyes and all related structures Neck Neck: normal visual inspection Chest Chest palpation & inspection: normal inspection of the chest and normal palpation of entire chest wall Resp Effort & Inspection: normal respiratory effort Auscultation: Bilateral: Clear to Auscultation Cardio Palpation: normal PMI Rate: regular rate Rhythm: regular rhythm GI Inspection: normal to inspection Auscultation: normal bowel sounds Percussion: normal to percussion Palpation: no hepatosplenomegaly Skin General: no rashes or lesions noted Neuro General: patient alert Extrem General: normal to inspection Psych Affect: normal affect Quality Reporting Tobacco Screening ([facility] 138) Smoking Status: Never smoker Assessment and Plan Assessment and Plan (1) Eosinophilic esophagitis: Status: Chronic Plan: Eosinophilic esophagitis diagnosed at the age of 12 with known stricturing disease. He says he has a proximal stricture that is 3 cm long and a distal stricture which is 5 cm long. His last upper endoscopy with dilation was approximately 2 years ago. At this time he is having somewhat solid food dysphagia and definitely pill induced dysphagia. He does not know if his is PPIresponsive or PPI nonresponsive versus food allergy related or autoimmune. He has been on PPI therapy in the past intermittently and has been on budesonide oral. He took this the slushy. 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 We will do biochemical testing and also food allergy testing. He will undergo an upper endoscopy to evaluate his upper GI tract with biopsies and possible dilation. Orders: Orders Comprehensive Metabolic Profil Today K20.0 - Eosinophilic esophagitis CRP Today K20.0 - Eosinophilic esophagitis LDH Today K20.0 - Eosinophilic esophagitis CBC W/Diff, Automated Today K20.0 - Eosinophilic esophagitis Erythrocyte Sed Rate Today K20.0 - Eosinophilic esophagitis JOYCE Comprehensive Panel Today K20.0 - Eosinophilic esophagitis ANCA Today K20.0 - Eosinophilic esophagitis Celiac Disease Profile Today K20.0 - Eosinophilic esophagitis Immunoglobulins G/A/M/E Today K20.0 - Eosinophilic esophagitis DARCIE + Protein Elect, Serum Today K20.0 - Eosinophilic esophagitis Allergen, Rast Food Profile Today K20.0 - Eosinophilic esophagitis Allergen, Food Profile Today K20.0 - Eosinophilic esophagitis I have examined the patient and the H&P has been reviewed. There are no clinicalchanges since date of exam. 03/25/23 6280 <Electronically signed by Len Zaragoza DO> Cosigner Signature (if applicable): CC: Dr. Rohith Lopez MD; Len Zaragoza DO~ Signed [facility] Work Phone: Hospital Discharge instructions No data available for this section [facility] Progress note No data available for this section [facility] Reason for referral (narrative)* Diagnostic Procedure Only (Routine) - Pending Review Specialty Diagnoses / Procedures Referred By Contac t Referred To Contact XR IMAGING Diagnoses Eosinophilic esophagitis Procedures XR ESOPHAGRAM RADIOLOGIC EXAM ESOPHAGUS SINGLE CONTRAST STUDY Sabra Mccarthy MD [address] [place] [address] Xr Imaging Referral ID Status Reason Start Date Expiration Date Visits Requested Visits Authorized [id number] Pending Review Auto-Generat ed Referral 09/23/2021 10/23/2022 1 1 * Outpatient Procedure (Routine) - Pending Review Specialty Diagnoses / Procedures Referred By Contac t Referred To Contact [facility] Diagnoses Eosinophilic esophagitis Procedures EGD - THERAPEUTIC, EUS, OR TUBE INTERVENTIONS EGD DILATION GASTRIC/DUODENAL STRICTURE Sabra Mccarthy MD [address] [place] [address] [facility] [address] [address] Referral ID Status Reason Start Date Expiration Date Visits Requested Visits Authorized [id number] Pending Review Auto-Generat ed Referral 09/23/2021 09/23/2022 1 1 [facility] for referral (narrative)* Diagnostic Procedure Only (Routine) - Closed Specialty Diagnoses / Procedures Referred By Contac t Referred To Contact XR IMAGING Diagnoses Hand pain, right Procedures XR HAND GENERAL 3V PA/LAT/OBL RIGHT RADEX HAND MINIMUM 3 VIEWS Jose Francisco Frey MD [address] [place] [address] Xr Imaging [id number] Referral ID Status Reason Start Date Expiration Date V isits Requested Visits Authorized [id number] Closed Auto-Generate d Referral 11/21/2022 12/21/2023 1 1 [facility] for visit Narrative* Diagnostic Procedure Only (Routine) - Closed Specialty Diagnoses / Procedures Referred By Contac t Referred To Contact XR IMAGING Diagnoses Hand pain, right Procedures XR HAND GENERAL 3V PA/LAT/OBL RIGHT RADEX HAND MINIMUM 3 VIEWS Jose Francisco Frey MD [address] [facility] [place] [address] [place] [address] Referral ID Status Reason Start Date Expiration Date V isits Requested Visits Authorized [id number] Closed Auto-Generate d Referral 11/21/2022 12/21/2023 1 1 [facility] note* BELINDA Amin: PERFORM Event Display: Patient Summary Documents Authored Date: [facility] Summary Purpose Family History No Family History Records FoundNo Family History Records FoundNo Family History Records FoundNo Family History Records Found No data available for this section No Family History Records FoundNo Family History Records Found No data available for this section No Family History Records FoundNo Family History Records Found Advance Directives No Advanced Directives Records FoundDocuments on File Type Date Recorded 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 Avoid heavy exertion or straining and exercise for the next week Can use Tylenol and/or Advil for pain Return for worse headache or weakness or sensory issues * Attachments The following attachments cannot be sent through Care Everywhere. * Headache (Tunisian) * Headache: Tension (Tunisian) * Video: Headaches: Avoiding Triggers (Tunisian) documented in this encounter Assessments Diagnosis Tension-type headache, not intractable, unspecified chronicity pattern- Primary Chief Complaint and Reason for Visit Chief Complaint Consult E-ORDER Reason for Visit Eosinophilic esophag itis Additional Source Comments (unrecognized sect ion and content) No Status Records FoundNo Status Records FoundNo Status Records FoundNo Status Records FoundNo Status Records FoundNo Status Records FoundNo Status Records FoundNo Status Records Found INFORMATION SOURCE (unrecogn ized section and content) DATE CREATED AUTHOR 12/28/2017 [facility] DATE CREATED AUTHOR AUTHOR'S ORGANIZ ATION 10/24/2018 [facility] DATE CREATED AUTHOR AUTHOR'S ORGANIZ ATION 12/27/2018 [facility] DATE CREATED AUTHOR AUTHOR'S ORGANIZ ATION 09/25/2020 [facility] DATE CREATED AUTHOR AUTHOR'S ORGANIZ ATION 05/01/2023 [facility] ([place]) DATE CREATED AUTHOR AUTHOR'S ORGANIZ ATION 07/15/2023 [facility] DATE CREATED AUTHOR AUTHOR'S ORGANIZ ATION 04/29/2025 [facility] DATE CREATED AUTHOR AUTHOR'S ORGANIZ ATION 05/11/2025 [facility] Reason for Visit (unrecogniz ed section and content) Reason Comments Headache Reason Comments Throat Problem Source Comments (unrecognize d section and content) In the event this informatio n is protected by the Federal Confidentiality of Alcohol and Drug Abuse Patient Records regulations: The Federal rules restrict any use of the information to criminally investigate or prosecute any alcohol or drug abuse patient.[facility] the event this information is protected by the Federal Confidentiality of Alcohol and Drug Abuse Patient Records regulations: The Federal rules restrict any use of the information to criminally investigate or prosecute any alcohol or drug abuse patient.[facility] Care Teams (unrecognized sec tion and content) Gate Agent Relationship Specialty Start Date End Date Chioma Maldonado MD [address] [place] [address] PCP - General Pediatrics 06/06/10 Team Status: Active Member Role Status Dates Dr. Chioma Maldonado MD Family Provider Active Dr. Rohith Lopez MD Primary Care Provider Activ e Team Status: Inactive Member Role Status Dates Dr. Chioma Maldonado MD Primary Care Provider, Referring Provider Active Dr. Len Zaragoza DO Attending Provider Active Team Status: Active Member Role Status Dates Dr. Rohith Lopez MD Primary Care Provider, Refe rring Provider Active Dr. Len Zaragoza DO Attending Provider, Other Prov ider Active Team Status: Inactive Member Role Status Dates Dr. Rohith Lopez MD Primary Care Provider Activ e Dr. Len Zaragoza DO Attending Provider, Referring Provider Active Team Status: Inactive Member Role Status Dates Dr. Rohith Lopez MD Primary Care Provider, Refe rring Provider Active Dr. Len Zaragoza DO Attending Provider Active Gate Agent Relationship Specialty Start Date End Date Chioma Maldonado MD [address] [place] [address] PCP - General Pediatrics 06/06/10 FOR RECORDS PERTAINING TO PATIENTS WHO ARE OR HAVE BEEN ENROLLED IN A CHEMICAL DEPENDENCY/SUBSTANCEABUSE PROGRAM, SOME INFORMATION MAY BE OMITTED. This clinical summary was aggregated from multiple sources. Caution should be exercised in using it in the provision of clinical care. This summary normalizes information from multiple sources, and as a consequence, information in this document may materially change the coding, format and clinical context of patient data. In addition, data may be omitted in some cases. CLINICAL DECISIONS SHOULD BE BASED ON THE PRIMARY CLINICAL RECORDS. [facility]. provides no warranty or guarantee of the accuracy or completeness of information in this document.
--- NOTE | 2025-06-08 06:57 | PRE.ANES_ITS ---
ASA Classification* ASA Classification ASA Classification: 2 Assessment & Plan Anesthesia* Anesthesia Assessment Anesthesia Assessment: Discussed sedation and/or anesthesia options, risks, benefits, and alternatives with patient/parents/legal guardian/POA. Questions invited. The patient/parents/legal guardian/POA seems to understand and agrees to proceed with anesthesia plan. Reviewed the physical assessment, medical history, allergy history and patient home medications list prior to surgery/procedure/anesthetic and documented any changes. Performed airway and anesthesia risk assessments. Anesthesia Type Anesthesia Type: MAC Anesthesia Focused Assessment* Airway Assessment Mouth opens: >3 cm Mallampati Score: II Labs Anesthesia Preop lab: CBC WBC, (4.4-11.0) 6.7 K/mm3 12/08/22, : RBC, (4.6-6.2) 5.62 M/mm3 12/08/22, Hgb, (13.0-16.5) 17.2 g/dL H 12/08/22, : Hct, (40-54) 50.5 % 12/08/22, : Plt Count, (150-450) 228 K/mm3 12/08/22, : CHEMISTRY Potassium, (3.5-5.1) 4.0 mmol/L 12/08/22, : Sodium, (136-145) 140 mmol/L 12/08/22, : BUN, (7-18) 8 mg/dL 12/08/22, : Creatinine, (0.70-1.30) 1.00 mg/dL 12/08/22, : Glucose, (74-106) 87 mg/dL 12/08/22, : COAG Pre-Assessment Diagnosis/Proposed Procedure Planned Operative Procedure(s): EGD Anesthesia History 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 When Was Last Pacemaker Check QUESTION #4 FULL TEXT: You/Your Family Experience fever (hyperthermia) with Anesthesia Last Oral Intake Last Oral intake: Last Oral Intake NPO since Meds taken in AM with sips of water? 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 Female No 06/05/25 12:41 HX of Motion Sickness No 06/05/25 12:41 HX of N/V After Surgery No 06/05/25 12:41 Non-Smoker Yes 06/05/25 12:41 Duration of Surgery greater No 06/05/25 12:41 than 60 minutes Number of Risk Factors 1 06/05/25 12:41 PONV Score Low Risk 06/05/25 12:41 Height & Weight Height & Weight: Anesthesia: Height & Weight Height 6 ft 03/25/23 06:07 Respiratory Assessment Respiratory Assessment - professor of music: Respiratory Tract Infection Hx - professor of music Hx Respiratory Tract Infection No 06/05/25 12:41 STOP Sleep Apnea STOP Sleep Apnea - professor of music: STOP Sleep Apnea - professor of music Hx Hypertension No 06/05/25 12:41 Hx Sleep Apnea No 06/05/25 12:41 CPAP BIPAP Do you snore loudly (louder No 06/05/25 12:41 than talking or can be heard Do you often feel tired/ No 06/05/25 12:41 fatigued/ sleepy during daytime? Has anyone observed you stop No 06/05/25 12:41 breathing during sleep? STOP Results Negative 06/05/25 12:41 QUESTION #5 FULL TEXT : Do you snore loudly (louder than talking or can be heard through closed doors)? 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 Specify any problems Hx of Preganancy in last 3 N/A 06/05/25 12:41 Months Nurse Filling Out Transfusion [id number] 06/05/25 12:41 & Questions: Date: 06/05/25 12 12:41 Time: 12:42 06/05/25 12:41 Patient unable to answer at this time (ie. 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: /Reproductive Hx- professor of music Hx Now Gestational Age (in weeks): EDC: Hx Hx Para Hx Section SAB Does the father of the baby or his family experience fever w Father of the baby Malignant Hypertension history comment [facility] Medical History Alcohol use Injury of head and neck Broken neck Difficulty swallowing Gastric reflux Chewing tobacco nicotine dependence Asthma Migraine Dysphagia Home Medications Medication Instructions Recorded Last Taken Type albuterol sulfate 90 mcg/actuation 2 puff inhalation P RN ASTHMA 03/23/23 Unknown History aerosol inhaler fluticasone propionate 50 2 spray intranasal DAILY Unknown History mcg/actuation nasal spray,suspension levocetirizine 5 mg tablet 5 mg PO PRN PRN allergy sym ptoms 03/23/23 Unknown History dupilumab 300 mg/2 mL subcutaneous 300 mg (2 mL) subcu t Q2W #4 mL 04/27/25 Unknown Rx pen injector (Dupixent) lansoprazole 30 mg delayed 30 mg PO QDAY #30 tabs 04/05 10/27 Unknown Rx release,disintegrating tablet Allergy/AdvReac Type Severity Reaction Status Date / Time tree nut Allergy Severe Anaphylaxis Verified 06/05/25 12:40 cefdinir (From Omnicef) Allergy Hives Verified 06/05/25 12:40 Surgical History History of esophagogastroduodenoscopy (EGD) Social History Smoking Status: Current every day smoker tobacco type: smokeless tobacco alcohol intake: never Review of Systems (Anesthesia) ROS Narrative System reviewed and no additional complaints, except as documented.
[2025-06-08] MEDS: Lactated Ringers 1,000 ML 15 ML IV (07:13)
--- NOTE | 2025-06-08 07:22 | HP.PCM_ITS ---
HPI - General General Date of Admission: 06/08/25 Date of Service: 06/08/25 Chief Complaint: Eosinophilic esophagitis HPI Narrative LESLIE WELLS, is a 25 M who presents [ LESLIE WELLS is a 25 M who presents to the office today for follow up. [facility] pediatric[facility] consulted 2016 for dysphagia persistent for one year. Noting concurrent diagnoses of eczema and asthma. EGD 02.25.17 noting Schatzki ring with increased eosinophils count. Start prednisolone taper then Pulmicort with Splenda slurry Upper GI 03.15.17 narrowing of esophagus. No reflux Continue/Start slurry and start PPI EGD 04.29.17 two strictures 15cm and 25cm from incisors. Pathology indicative of EOE. Esophagram 04.29.17 without acute/chronic finding. Leslie has had multiple EGDs with pathology and esophagrams showi ng esophageal strictures and ongoing EOE. Therapy has remained the same through treatment. EGD 08.03.19 mild esophageal narrowing at 15 [id number] with dilation performed; erythematous duodenal bulb. *BGI established 6.12.25 he is not currently maintained on medication; has attempted budesonide inhaler and slurry and anti-acid medication historically and does not recall good results but did not take them consistently. Currently he is having dysphagia with medication; but no acute episodes of choking. Notes a slowing of bolus passage with dryer/thicker foods. Most recent dilation approximately 2 years prior. Does report asthma which is activity induced; does not recall pulmonology workup. EGD 03-25-23 noting Esophageal mucosal changes secondary to eosinophilic esophagitis. Dilated. Normal stomach. Erythematous duodenopathy. 04-23-23, He reports his dysphagia has improved since dilation. He reports meat and rice "sticking" in his esophagus, but clears easily with water. He has not started the Dupixent yet as his insurance just approved it last week. OV 04.27.25 pt reports that for the past 6 months he has been having more difficultly swallowing, reports that EGD with dilation was helpful in the past. Reports he was never able to start on the Dupixent due to insurance and does not remember is Lansoprazole was helpful. Pt also notes alternating bowel movements, reports he has always had "trouble with his bowels" but states it has gotten worse this year. Pt reports gas and bloating after eating, states that gluten and dairy tend to be triggers. ] [facility] Medical History Alcohol use Injury of head and neck Broken neck Difficulty swallowing Gastric reflux Chewing tobacco nicotine dependence Asthma Migraine Dysphagia Home Medications Medication Instructions Recorded Last Taken Type albuterol sulfate 90 mcg/actuation 2 puff inhalation P RN ASTHMA 03/23/23 Unknown History aerosol inhaler fluticasone propionate 50 2 spray intranasal DAILY Unknown History mcg/actuation nasal spray,suspension levocetirizine 5 mg tablet 5 mg PO PRN PRN allergy sym ptoms 03/23/23 Unknown History dupilumab 300 mg/2 mL subcutaneous 300 mg (2 mL) subcu t Q2W #4 mL 04/27/25 Unknown Rx pen injector (Dupixent) lansoprazole 30 mg delayed 30 mg PO QDAY #30 tabs 04/05 10/27 Unknown Rx release,disintegrating tablet Allergy/AdvReac Type Severity Reaction Status Date / Time tree nut Allergy Severe Anaphylaxis Verified 06/08/25 07:05 cefdinir (From Omnicef) Allergy Hives Verified 06/08/25 07:05 Surgical History History of esophagogastroduodenoscopy (EGD) Social History Smoking Status: Current every day smoker tobacco type: smokeless tobacco alcohol intake: never ROS Constitutional Constitutional: Denies fatigue, fever(s), poor appetite, weight gain or weight loss Gastrointestinal Gastrointestinal: Denies belching, bloating, change in bowel habits, change in stool character, chewing difficulty, coffee ground emesis, constipation, cramping, diarrhea, dyspepsia, dysphagia, early satiety, excessive flatus, fecal incontinence, heartburn, hematemesis, hematochezia, hemorrhoids, loose stools, melena, nausea, odynophagia, rectal bleeding, tenesmus, vomiting or weight changes Vital Signs Vital Signs Vital Signs: 06/08/25 07:07 06/08/25 07:07 Temperature 97 F L Temperature Source Temporal Pulse Rate 74 Respiratory Rate 16 Respiratory Pattern Normal Blood Pressure 141/81 H Blood Pressure Mean 101 Blood Pressure Source Monitor Blood Pressure Position Semi-Fowlers Blood Pressure Location Right Arm Pulse Ox 99 Oxygen Delivery Method Room Air Weight Weight: 207 lb Body Mass Index (BMI) 28.0 Physical Exam Const alert, oriented x3, no apparent distress and healthy appearing General Appearance: cooperative GI normal to inspection, nondistended, normoactive bowel sounds, soft to palpation, non-tender and non-distended Percussion: normal to percussion Rectal Exam: deferred Assessment & Plan Assessment/Plan (1) Eosinophilic gastroenteritis: (2) Eosinophilic esophagitis: PLAN: Assessment and Plan Assessment and Plan (1) Dysphagia: (2) Eosinophilic gastroenteritis: Status: Acute Plan: This 25-year-old male is experiencing an exacerbation of his severe eosinophilic esophagitis (EoE), presenting with classic symptoms of dysphagia and esophageal narrowing. His systemic allergic burden, indicated by the elevated IgE and his known food allergies, is likely contributing to the current disease activity, especially given his non-adherence to dietary avoidance measures. The mild elevation in ESR and CRP further supports a state of active inflammation, while the significant IgE elevation points toward a Type 2 immune- mediated process, which is characteristic of EoE pathophysiology. The new gastrointestinal symptoms of bloating, cramping, and loose stools could signify involvement beyond the esophagus, such as eosinophilic gastroenteritis, or could be related to dysbiosis caused by his food intolerances. His prior partial response to PPI therapy and his significant atopy place him in a category where both allergy-driven and acid-mediated inflammation may be at play. The worsening of symptoms after discontinuing PPIs supports their therapeutic benefit in his case. His request for sublingual PPI is based on his trouble swallowing, but this formulation is generally not suitable for treating EoE, as PPIs require an oral (swallowed) formulation to be absorbed and exert their anti-inflammatory and acid-suppressing effects. Topical steroids that are swallowed are another common treatment that may be a viable option. Plan * Diagnostic: * Schedule an upper endoscopy with biopsies to assess the current degree of eosinophilic inflammation, assess for strictures, and confirm the diagnosis of active EoE. * During the endoscopy, perform esophageal dilation as requested and clinically indicated for his dysphagia and perceived esophageal narrowing. * Therapeutic: * Pharmacologic: Discuss standard EoE treatment options, explaining that a sublingual PPI is not appropriate. * Standard PPIs: Reinforce the need for a swallowed PPI (e.g., omeprazole 20- 40 mg twice daily), potentially using liquid formulations or opening capsules to sprinkle the contents on soft food to address his dysphagia. * Topical Steroids: Discuss the use of swallowed topical corticosteroids (e.g., budesonide oral suspension or fluticasone), which are highly effective and are not associated with typical systemic steroid side effects. * Biologics: Consider Dupilumab, the first FDA-approved treatment for EoE, especially given his severe disease, significant atopy, and potential intolerance to other therapies. * Dietary: * Strongly encourage re-engaging with dietary therapy by strictly avoiding his identified food allergens (egg, wheat, shellfish, tree nuts, peanuts). * Recommend consultation with a registered dietitian to guide this strict elimination diet and ensure nutritional adequacy. * Patient Education: * We explained why a sublingual PPI is not an effective treatment for his condition, as PPIs must be ingested to work properly. * We explained the need for repeat endoscopy with biopsy after 8–12 weeks of therapy to confirm histological remission, as symptoms alone are unreliable indicators of healing. * We explained the role of dilation as a procedure to manage the mechanical narrowing, but emphasize that it does not treat the underlying inflammation. Medications: New lansoprazole 30 mg PO QDAY 30 tabs 2RF dupilumab (Dupixent) 300 mg (2 mL) subcut Q2W 4 mL 2RF
--- NOTE | 2025-06-08 08:00 | EGD_PTH ---
PATIENT: LESLIE WELLS LOC: EN U#:[id number] AGE/SX: 25/M ROOM: RE06/08/[address]: Dr. Len Zaragoza DO : 2000 BED: DIS: 06/08/2025 SPEC #: [id number] RECD: 06/08/25 09:25 STATUS: CHICHI MAEGAN #: [id number] BETTY: 06/08/25 08:[address]: Len Zaragoza DEPT: SURGICAL PATHOLOGY RECD BY: Mathew Shrestha ENTERED: 06/08/25 11:32 SP TYPE: EGD BIOPSY ARYA DR: Dr. Ovi Lopez MD Tissues: A - Esophagus, NOS Procedures: Surgery Specimen Level IV HEADER OPERATION: EGD with biopsy PRE-OP DIAGNOSIS: Dysphagia, eosinophilic gastroenteritis TISSUE SUBMITTED: A- Random esophagus biopsy MICROSCOPIC DIAGNOSIS A. Esophagus, random, biopsy: - Squamous mucosa with marked reactive changes. - 80 eosinophils per high power field. MICROSCOPIC DESCRIPTION Slides are reviewed. GROSS DESCRIPTION A. Received in fixative is one container labeled with the patient's name and designated "Random esophagus biopsy." The specimen consists of multiple irregular fragments of barajas tissue that in aggregate measure 1.6 x 0.5 x 0.1 cm. The specimen is totally submitted in one cassette. PR 06/08/2025 CPT:93764
--- NOTE | 2025-06-08 08:31 | OP.EGD_ITS ---
Patient Name: Oleg Thomas Procedure Date: 06/08/2025 8:04 AM Date of : 2000 Age: 25 Procedure: Upper GI endoscopy Indications: Dysphagia Providers: Len Zaragoza DO Referring MD: Rohith Lopez Medicines: Monitored Anesthesia Care Patient Profile: This is a 25 year old male. Refer to note in patient chart for documentation of history and physical. Patient has symptoms of dysphagia with solids. Complications: No immediate complications. Procedure: Pre-Anesthesia Assessment: - Prior to the procedure, a History and Physical was performed, and patient medications and allergies were reviewed. The patient is competent. The risks and benefits of the procedure and the sedation options and risks were discussed with the patient. All questions were answered and informed consent was obtained. Patient identification and proposed procedure were verified by the physician in the pre-procedure area. Mental Status Examination: alert and oriented. Airway Examination: normal oropharyngeal airway and neck mobility. Respiratory Examination: clear to auscultation. CV Examination: normal. Prophylactic Antibiotics: The patient does not require prophylactic antibiotics. Prior Anticoagulants: The patient has taken no anticoagulant or antiplatelet agents except for NSAID medication. ASA Grade Assessment: II - A patient with mild systemic disease. After reviewing the risks and benefits, the patient was deemed in satisfactory condition to undergo the procedure. The anesthesia plan was to use monitored anesthesia care (MAC). Immediately prior to administration of medications, the patient was re-assessed for adequacy to receive sedatives. The heart rate, respiratory rate, oxygen saturations, blood pressure, adequacy of pulmonary ventilation, and response to care were monitored throughout the procedure. The physical status of the patient was re-assessed after the procedure. After obtaining informed consent, the endoscope was passed under direct vision. Throughout the procedure, the patient's blood pressure, pulse, and oxygen saturations were monitored continuously. The gastroscope was introduced through the mouth, and advanced to the second part of duodenum. The upper GI endoscopy was accomplished without difficulty. The patient tolerated the procedure well. Scope In: 8:15:53 AM Scope Out: 8:22:03 AM Total Procedure Duration Time 0 hours 6 minutes 10 seconds Findings: Mucosal changes including ringed esophagus, feline appearance, longitudinal furrows, small-caliber esophagus, white plaques and circumferential folds were found in the entire esophagus. Esophageal findings were graded using the Eosinophilic Esophagitis Endoscopic Reference Score (EoE-EREFS) as: Edema Grade 1 Present (decreased clarity or absence of vascular markings), Rings Grade 2 Moderate (distinct rings that do not occlude passage of diagnostic 8-10 mm endoscope), Exudates Grade 0 None (no white lesions seen), Furrows Grade 1 Mild (vertical lines without visible depth) and Stricture none (no stricture found). Biopsies were obtained from the proximal and distal esophagus with cold forceps for histology of suspected eosinophilic esophagitis. Verification of patient identification for the specimen was done. Estimated blood loss was minimal. A small hiatal hernia was present. No other significant abnormalities were identified in a careful examination of the stomach. No gross lesions were noted in the entire examined duodenum. Impression: - Esophageal mucosal changes secondary to eosinophilic esophagitis. - Small hiatal hernia. - No gross lesions in the entire examined duodenum. - Biopsies were taken with a cold forceps for evaluation of eosinophilic esophagitis. Recommendation: - Patient has a contact number available for emergencies. The signs and symptoms of potential delayed complications were discussed with the patient. Return to normal activities tomorrow. Written discharge instructions were provided to the patient. - Resume previous diet. - Continue present medications. - Await pathology results. Procedure Code(s): --- Professional --- 92885, Esophagogastroduodenoscopy, flexible, transoral; with biopsy, single or multiple CPT copyright 2021 [employer]. All rights reserved. The codes documented in this report are preliminary and upon professional fee coder review may be revised to meet current compliance requirements. Len Zaragoza DO 06/08/2025 8:30:34 AM This report has been signed electronically. Number of Addenda: 0 Note Initiated On: 06/08/2025 8:04 AM
--- NOTE | 2025-06-08 08:31 | OP.PROVAT_ITS ---
06/08/2025 Rohith Lopez [address] [place] [address] Re : Upper GI endoscopy procedure for [facility] Dear Dr. Lopez This procedure was performed on Sunday, June 08, 2025. My impressions and recommendations are as follows: Impressions : - Esophageal mucosal changes secondary to eosinophilic esophagitis. - Small hiatal hernia. - No gross lesions in the entire examined duodenum. - Biopsies were taken with a cold forceps for evaluation of eosinophilic esophagitis. Recommendations : - Patient has a contact number available for emergencies. The signs and symptoms of potential delayed complications were discussed with the patient. Return to normal activities tomorrow. Written discharge instructions were provided to the patient. - Resume previous diet. - Continue present medications. - Await pathology results. My findings are described in the full procedure note, which is enclosed. If I can be of further assistance, please feel free to contact me at . Sincerely, Len Zaragoza, 06/08/2025 8:30:34 AM This report has been signed electronically.
--- NOTE | 2025-06-08 08:35 | PCM.POST.ANE ---
Anesthesia: Postop Eval I Current Vital Signs Temperature: 98.2 F Pulse Rate: 82 Blood Pressure: 117/72 Respiratory Rate: 14 Pulse Ox: 95 Oxygen Delivery Method: Room Air Assessment Airway patent: Yes Spontaneous unlabored respirations: Yes Mental status: Asleep nausea: No Vomiting: No Anesthesia Complication: Yes Anesthesia Complication Comment:: profuse coughing w/O2 desat Fluid Hydration Crystalloid volume administer (ml): 400 Total IV fluid infused: 400 Progress Note Anesthesia document: Postop Eval 1 completed: Yes
--- NOTE | 2025-06-08 09:13 | PCM.POSTANE2 ---
Anesthesia Postop Eval I Sum Postop Eval Completion status Anesthesia document: Postop Eval 1 completed: Yes Anesthesia Postop Eval I Summary Anesthesia Postop Eval I Summary: Anesthesia Postop Eval I: Assessment Summary Airway patent Yes 06/08/25 08:36 [email or web address] Spontaneous unlabored Yes 06/08/25 08:36 [email or web address] respirations Mental status Asleep 06/08/25 08:36 [email or web address] nausea No 06/08/25 08:36 [email or web address] Vomiting No 06/08/25 08:36 [email or web address] Anesthesia Postop Eval I: Fluid Summary Crystalloid volume administer 400 06/08/25 08:36 [email or web address] (ml) Colloids volume administered ( ml) Blood Product volume administered (ml) Total IV fluid infused 400 06/08/25 08:36 [email or web address] Anesthesia Postop Eval I: Summary Notes Anesthesia Complication Yes 06/08/25 08:36 [email or web address] Anesthesia Complication profuse coughing w 06/08/25 08:36 [email or web address] Comment: /O2 desat Post-operative progress note Anesthesia: Postop Eval II Evaluation Mental status: Awake Pain Level: 0 nausea: No Vomiting: No
== END 2025-06-08 09:17 | disposition home or self-care (01) ==
LOC: EN 06:49 → AC 06:50
PROVIDERS: PCP Family Medicine; Referring Provider Family Medicine; Visit Provider Internal Medicine Gastroenterology
PROC: 0DJ08ZZ Inspection of Upper Intestinal Tract, Via Natural or Artificial Opening Endoscopic (ICD-10-PCS; CPT 43235; principal; 2025-06-08 07:55)
DX: K20.0 Eosinophilic esophagitis (principal); K44.9 Diaphragmatic hernia without obstruction or gangrene; J45.909 Unspecified asthma, uncomplicated; K21.9 Gastro-esophageal reflux disease without esophagitis; F17.220 Nicotine dependence, chewing tobacco, uncomplicated; K52.81 Eosinophilic gastritis or gastroenteritis; Z79.899 Other long term (current) drug therapy; Z79.85 Long-term (current) use of injectable non-insulin antidiabetic drugs
CPT/HCPCS: 43239; 88305; J2405